=== PATIENT | female | born 1990 | race Asian ===

== ENCOUNTER → 2017-09-14 | Outpatient (CLI) | payer OTHER | END | disposition home or self-care (01) | LOC: C.LABSPEC 18:04 | PROVIDERS: ATTEND Obstetrics & Gynecology | DX: Z34.01 Encounter for supervision of normal first pregnancy, first trimester (principal) ==

== ENCOUNTER → 2017-09-19 | Outpatient (CLI) | payer OTHER ==
[2017-09-19 10:18] LABS: BASO % 0.3 %; BASO ABS # 0.04 K/uL (0-0.2); EOS % 1.4 %; EOS ABS # 0.16 K/uL (0-0.5); HEMATOCRIT 38.3 % (37-47); HEMOGLOBIN 13.3 g/dL (12.0-16.0); IG# 0.03 K/uL (0.00-0.02); LYMPH % 19.9 %; LYMPH ABS # 2.33 K/uL (1.2-3.4); MEAN CORPUSCULAR HEMOGLOBIN 30.6 pg (25-34); MEAN CORPUSCULAR HGB CONC 34.7 g/dl (32-36); MEAN PLATELET VOLUME 9.5 fL (7.4-10.4); MONO % 6.8 %; NEUT % 71.3 %; NEUT ABS # 8.34 K/uL (1.4-6.5); PLATELET COUNT 306 K/uL (130-400); RED CELL DISTRIBUTION WIDTH CV 12.6 % (11.5-14.5); RED CELL DISTRIBUTION WIDTH SD 40.6 fL (36.4-46.3)
== END | disposition home or self-care (01) ==
LOC: C.LAB1850 09:11
PROVIDERS: ATTEND Obstetrics & Gynecology
DX: Z34.01 Encounter for supervision of normal first pregnancy, first trimester (principal); Z3A.00 Weeks of gestation of pregnancy not specified

== ENCOUNTER → 2017-11-14 | Outpatient (CLI) | payer OTHER | END | disposition home or self-care (01) | LOC: C.LAB1850 10:08 | PROVIDERS: ATTEND Obstetrics & Gynecology | DX: Z34.02 Encounter for supervision of normal first pregnancy, second trimester (principal) ==

== ENCOUNTER → 2018-04-03 | Outpatient (CLI) | payer OTHER | END | disposition home or self-care (01) | LOC: C.LABSPEC 17:35 | PROVIDERS: ATTEND Obstetrics & Gynecology | DX: Z34.03 Encounter for supervision of normal first pregnancy, third trimester (principal) ==

== ENCOUNTER 2018-04-17 15:46 | Inpatient (IN) | payer OTHER ==
[~2018-04-17] VITALS: Ht 157.5 cm; Wt 70.9 kg
[2018-04-17] MEDS ORDERED: PREN-63 (16:55)
[2018-04-17] MEDS ORDERED: HMLI7525 SC (16:55)
[2018-04-17] MEDS ORDERED: INSHI7030 SC (16:55)
[2018-04-17 16:58] VITALS: Ht 157.5 cm; Wt 70.9 kg
[2018-04-17] MEDS ORDERED: LACTATED RINGER'S 1000ML 1,000 ML IV PRN (18:02)
[2018-04-17] MEDS ORDERED: LACTATED RINGER'S 1000ML 500 ML IV PRN ×2 (18:05→23:34)
[2018-04-17] MEDS ORDERED: OXYTOCIN 30 UNITS/500ML NSS IV PRN (18:15)
[2018-04-17 18:29] LABS: HEMATOCRIT 39.1 % (37-47); HEMOGLOBIN 13.2 g/dL (12.0-16.0); MEAN CELL VOLUME 86.1 fL (80-100); MEAN CORPUSCULAR HEMOGLOBIN 29.1 pg (25-34); MEAN CORPUSCULAR HGB CONC 33.8 g/dl (32-36); MEAN PLATELET VOLUME 10.1 fL (7.4-10.4); PLATELET COUNT 205 K/uL (130-400); RED CELL DISTRIBUTION WIDTH SD 43.8 fL (36.4-46.3); WHITE BLOOD COUNT 12.22 K/uL (4.8-10.8)
[2018-04-17] MEDS ORDERED: MISOPROSTOLTAB 50 MCG TAB PO SCH (18:30)
[2018-04-17] MEDS: LACTATED RINGER'S 1000ML 1,000 ML IV SCH ×2 (18:51→23:04)
[2018-04-17] MEDS ORDERED: BUTORPHANOL TARTRATE 1 MG/ML VIAL ONE (21:09)
[2018-04-17] MEDS ORDERED: BUTORPHANOL TARTRATE 1 MG/ML VIAL IV PRN (21:15)
[2018-04-17] MEDS ORDERED: EpHEDrine SULFATE INJ 50 MG/ML AMP ONE (22:39)
[2018-04-17] MEDS ORDERED: BUPIVACAINE 0.25% 30 ML VIAL ONE (22:39)
[2018-04-17] MEDS ORDERED: FENTANYL CITRATE INJ 50 MCG/1 ML 2 ML VIAL ONE (22:39)
[2018-04-17] MEDS ORDERED: FENTANYL 2MCG/ML ROPIV 1.25MG/ML 100ML BAG ONE (22:40)
[2018-04-17] MEDS ORDERED: EpHEDrine SULFATE INJ 50 MG/ML AMP IV PRN (23:45)
[2018-04-17] MEDS ORDERED: NALOXONE HCL INJ 0.4 MG/1 ML VIAL/CARP IV PRN (23:45)
[2018-04-17] MEDS ORDERED: FENTANYL 2MCG/ML ROPIV 1.25MG/ML 100ML BAG EPI PRN (23:45)
[2018-04-18] MEDS: LACTATED RINGER'S 1000ML 1,000 ML IV SCH (03:27)
[2018-04-18] MEDS ORDERED: LACTATED RINGER'S 1000ML 1,000 ML IV SCH (09:12)
[2018-04-18] MEDS ORDERED: HYDROCORTISONE ACETATE 25 MG SUPP PR PRN (09:15)
[2018-04-18] MEDS ORDERED: SUPERCREAM 0.870 % 15GM JAR EXT PRN (09:15)
[2018-04-18] MEDS ORDERED: BENZOCAINE 20% AER SPR 82.5 GM CAN EXT PRN (09:15)
[2018-04-18] MEDS ORDERED: DIPHTHERIA/TETANUS/PERTUSSIS 0.5 ML SYR/VIAL IM. ONE (09:15)
[2018-04-18] MEDS ORDERED: OXYTOCIN 30 UNITS/500ML NSS IV PRN (09:15)
[2018-04-18] MEDS ORDERED: LANOLIN OINT EXT PRN (09:15)
[2018-04-18] MEDS ORDERED: OXYCODONE/ACETAMINOPHEN 5-325 TAB PO PRN (09:15)
--- NOTE | 2018-04-18 09:27 | Vaginal Delivery Summary ---
Vaginal Delivery Ora Ochoa was in her second stage of labor at the time I assumed her care on . I was called to the room for delivery as she was . The perineum was prepped with soap and water, and the baby then delivered with maternal pushing efforts. No nuchal cord. The shoulders and body delivered with no difficulty or delay. A viable male infant was placed on maternal abdomen where cord was doubly clamped and cut by the FOB. Placenta delivered spontaneously. Repair of the L labial laceration was done with 4-0 vicryl in running locked fashion. The second degree laceration was then repaired using 3-0 vicryl in the usual manner with a crown suture to rebuild the perineal body. At completion of repair the fundus was firm and lochia was minimal.
[2018-04-18] MEDS: IBUPROFEN 600 MG TAB PO PRN ×2 (11:58→16:05)
--- NOTE | 2018-04-18 12:39 | Anesthesia Procedure Note ---
Anesthesia Epidural Removal Nt Date & Time Apr 18, 2018 at 12:38 Vital Signs Pain Intensity: 6.0 Notes Mental Status: alert / awake / arousable, participated in evaluation Nausea / Vomiting: adequately controlled Pain: adequately controlled Airway Patency, RR, SpO2: stable & adequate BP & HR: stable & adequate Hydration State: stable & adequate Neuraxial Anesthesia: was administered Anesthetic Complications: no major complications apparent, pt satisfied with anesthetic care Epidural: removed without complications, with tip intact
[2018-04-18 12:45] VITALS: BP 107/76; PULSE 122; TEMP 36.5; O2SAT 97
[2018-04-18] MEDS: ACETAMINOPHEN 325 MG TAB PO PRN ×2 (13:01→23:44)
[2018-04-18 15:15] VITALS: BP 114/77; PULSE 96; TEMP 36.7
[2018-04-18] MEDS: DOCUSATE SODIUM 100 MG CAP PO SCH (19:41)
[2018-04-18 19:45] VITALS: BP 106/69; PULSE 93; TEMP 36.6; O2SAT 98
[2018-04-18 23:40] VITALS: BP 114/71; PULSE 105; TEMP 36.7; O2SAT 98
[2018-04-19] MEDS: IBUPROFEN 600 MG TAB PO PRN ×2 (04:04→21:43)
[2018-04-19 04:05] VITALS: BP 107/70; PULSE 87; TEMP 36.7; O2SAT 99
[2018-04-19 06:36] LABS: HEMATOCRIT 31.8 % (37-47); HEMOGLOBIN 10.6 g/dL (12.0-16.0)
--- NOTE | 2018-04-19 06:59 | Progress Note ---
Subjective Apr 19, 2018. Subjective conversation w/ patient, physical exam Ambulation: ambulating normally Voiding: no voiding problems Passing Gas: Yes Diet Tolerance: Regular Diet Lochia: Moderate Feeding Type: Breast Feeding (Plans to pump) Pain: improving Review of Systems Constitutional: No fever, No chills, No sweats Respiratory: No cough, No sputum, No wheezing Cardiac: No chest pain Abdomen: No pain, No nausea, No vomiting Female : No dysuria Objective Vital Signs Date Time Temp Pulse Resp B/P (MAP) Pulse Ox O2 Delivery O2 Flow Rate FiO2 04/19/18 04:05 36.7 87 20 107/70 (82) 99 Room Air 04/18/18 23:40 36.7 105 20 114/71 (85) 98 Room Air 04/18/18 23:40 98 Room Air 04/18/18 19:45 36.6 93 20 106/69 (81) 98 Room Air 04/18/18 19:45 98 Room Air 04/18/18 15:15 Room Air 04/18/18 15:15 36.7 96 20 114/77 (89) Room Air 04/18/18 12:45 36.5 122 20 107/76 (86) 97 Room Air 04/18/18 12:45 97 Physical Exam General Appearance: WELL-APPEARING, NO APPARENT DISTRESS Respiratory/Chest: chest non-tender, lungs clear Cardiovascular: regular rate, rhythm Fundus: Firm, Relation to Umbilicus (Below) Extremities: non-tender, no calf tenderness Laboratory Results Last 24 Hours Test 04/18/18 07:08 04/19/18 06:05 Bedside Glucose 92 mg/dl Hemoglobin 10.6 g/dL Hematocrit 31.8 % Medications Current Inpatient Medications Medications (Trade) Dose Ordered Sig/Breann Route Start Time Stop Time Status Last Admin Dose Admin Lactated Ringer's 1,000 ml @ 999 mls/hr Q1H1M PRN IV 04/17/18 18:02 05/17/18 18:01 04/17/18 22:41 999 MLS/HR Lactated Ringer's 500 ml @ 999 mls/hr Q31M PRN IV 04/17/18 18:05 05/17/18 18:04 Butorphanol Tartrate (Stadol Inj) 1 mg Q1H PRN IV 04/17/18 21:15 05/17/18 21:14 Lactated Ringer's 1,000 ml @ 125 mls/hr Q8H IV 04/18/18 09:12 05/18/18 09:11 Oxytocin (Pitocin IV) 30 units UD PRN IV 04/18/18 09:15 05/18/18 09:14 Benzocaine (Dermoplast Aero Spr) 1 appln PRN PRN EXT 04/18/18 09:15 05/18/18 09:14 04/18/18 13:01 1 APPLN Cocaine HCl (Supercream 0.870% Cr) BID PRN EXT 04/18/18 09:15 05/02/18 09:14 Hydrocortisone Acetate (Anusol Hc Supp) 25 mg BID PRN CO 04/18/18 09:15 05/18/18 09:14 Lanolin (Lanolin Oint) PRN PRN EXT 04/18/18 09:15 05/18/18 09:14 Prenat Multivit/ Drama Therapist/Iron/Folic Ac ( Vitamin Tab) 1 tab DAILY PO 04/19/18 08:00 05/19/18 07:59 Ibuprofen (Motrin Tab) 600 mg Q4H PRN PO 04/18/18 09:15 05/18/18 09:14 04/19/18 04:04 600 MG Acetaminophen (Tylenol Tab) 650 mg Q6H PRN PO 04/18/18 09:15 05/18/18 09:14 04/18/18 23:44 650 MG Oxycodone/ Acetaminophen (Percocet 5-325mg Tab) 1 tab Q4H PRN PO 04/18/18 09:15 05/02/18 09:14 Docusate Sodium (coLACE CAP) 100 mg BID PO 04/18/18 20:00 05/18/18 19:59 04/18/18 19:41 100 MG Ferrous Sulfate (Feosol Tab) 325 mg DAILY PO 04/19/18 08:00 05/19/18 07:59 Assessment and Plan Day#: 1 Continue Routine Care: 27 yo PPD1 s/p -AFVSS, Pt doing well resting comfortably -F/U CBC HGB 10.6 down from 13.2 appropriate s/p delivery, no si/sx -Plan is to breast feed (pump) -Tolerating regular diet -Continue to encourage ambulation -Routine care -Most Recent POC BG 92, will continue to monitor Resident Physician Supervision Note: I interviewed and examined the patient. Discussed with Dr. Charles and agree with findings and plan as documented in the note. Any exceptions or clarifications are listed here: [None] Documented By: Priya Cates Resident Tracking Resident Involvement: Resident Care Provided Care Provided: Adult Hospital Medicine
[2018-04-19 07:40] VITALS: BP 115/78; PULSE 68; TEMP 36.8; O2SAT 99
[2018-04-19] MEDS: FERROUS SULFATE 325 MG TAB PO SCH (08:22)
[2018-04-19] MEDS: DOCUSATE SODIUM 100 MG CAP PO SCH ×2 (08:22→20:09)
[2018-04-19] MEDS: PRENATAL VITAMIN TAB PO SCH (08:22)
[2018-04-19] MEDS: ACETAMINOPHEN 325 MG TAB PO PRN ×2 (08:24→16:18)
[2018-04-19 15:35] VITALS: BP 117/77; PULSE 88; TEMP 36.8; O2SAT 96; O2SAT 98
[2018-04-20 00:01] VITALS: BP 109/73; PULSE 81; TEMP 36.9; O2SAT 97
--- NOTE | 2018-04-20 06:29 | Progress Note ---
Subjective Apr 20, 2018. Subjective conversation w/ patient, physical exam Ambulation: ambulating normally Voiding: no voiding problems Passing Gas: Yes Diet Tolerance: Regular Diet Lochia: Small (improving) Feeding Type: Breast Feeding (with pumping) Pain: improving, increased with bm, some breast pain Comment: would like advice regarding stool softener Review of Systems Constitutional: No fever, No chills, No sweats Respiratory: No cough, No sputum, No wheezing Cardiac: No chest pain, No palpitations Abdomen: No pain, No nausea, No vomiting, No diarrhea Objective Vital Signs Date Time Temp Pulse Resp B/P (MAP) Pulse Ox O2 Delivery O2 Flow Rate FiO2 04/20/18 00:01 36.9 81 18 109/73 (85) 97 Room Air 04/20/18 00:01 97 Room Air 04/19/18 15:35 36.8 88 18 117/77 (90) 96 Room Air 04/19/18 15:35 98 Room Air 04/19/18 07:40 Room Air 04/19/18 07:40 36.8 68 16 115/78 (90) 99 Room Air Physical Exam General Appearance: WELL-APPEARING, NO APPARENT DISTRESS Respiratory/Chest: chest non-tender, normal breath sounds Cardiovascular: regular rate, rhythm Abdomen: normal bowel sounds Fundus: Firm, Relation to Umbilicus (below) Extremities: no calf tenderness Laboratory Results Last Resulted 04/17/18 18:21 04/19/18 06:05 Medications Current Inpatient Medications Medications (Trade) Dose Ordered Sig/Breann Route Start Time Stop Time Status Last Admin Dose Admin Lactated Ringer's 1,000 ml @ 999 mls/hr Q1H1M PRN IV 04/17/18 18:02 05/17/18 18:01 04/17/18 22:41 999 MLS/HR Lactated Ringer's 500 ml @ 999 mls/hr Q31M PRN IV 04/17/18 18:05 05/17/18 18:04 Butorphanol Tartrate (Stadol Inj) 1 mg Q1H PRN IV 04/17/18 21:15 05/17/18 21:14 Lactated Ringer's 1,000 ml @ 125 mls/hr Q8H IV 04/18/18 09:12 05/18/18 09:11 Oxytocin (Pitocin IV) 30 units UD PRN IV 04/18/18 09:15 05/18/18 09:14 Benzocaine (Dermoplast Aero Spr) 1 appln PRN PRN EXT 04/18/18 09:15 05/18/18 09:14 04/18/18 13:01 1 APPLN Cocaine HCl (Supercream 0.870% Cr) BID PRN EXT 04/18/18 09:15 05/02/18 09:14 Hydrocortisone Acetate (Anusol Hc Supp) 25 mg BID PRN NV 04/18/18 09:15 05/18/18 09:14 Lanolin (Lanolin Oint) PRN PRN EXT 04/18/18 09:15 05/18/18 09:14 Prenat Multivit/ Corporate Auditor/Iron/Folic Ac ( Vitamin Tab) 1 tab DAILY PO 04/19/18 08:00 05/19/18 07:59 04/19/18 08:22 1 TAB Ibuprofen (Motrin Tab) 600 mg Q4H PRN PO 04/18/18 09:15 05/18/18 09:14 04/19/18 21:43 600 MG Acetaminophen (Tylenol Tab) 650 mg Q6H PRN PO 04/18/18 09:15 05/18/18 09:14 04/19/18 16:18 650 MG Oxycodone/ Acetaminophen (Percocet 5-325mg Tab) 1 tab Q4H PRN PO 04/18/18 09:15 05/02/18 09:14 Docusate Sodium (coLACE CAP) 100 mg BID PO 04/18/18 20:00 05/18/18 19:59 04/19/18 20:09 100 MG Ferrous Sulfate (Feosol Tab) 325 mg DAILY PO 04/19/18 08:00 05/19/18 07:59 04/19/18 08:22 325 MG Assessment and Plan Day#: 2 Continue Routine Care: 27 yo PPD2 s/p -AFVSS, Pt doing well resting comfortably, had many questions (vitamin k, bleeding, sutures) -no si/sx of anemia -Plan is to breast feed and pump -Tolerating regular diet -Continue to encourage ambulation -Routine care -Provided Discharge Counseling regarding vaginal bleeding, fever, f/u 6 weeks, no heavy lifting for 2-3 weeks, breast feeding, taking pre- vitamin, and intercourse Resident Physician Supervision Note: I was present with Dr. Charles during the history and exam. I discussed the case with the resident and agree with the findings and plan as documented in the note. Any exceptions or clarifications are listed here: PPD#2 DC home today Documented By: Steph Miles Resident Tracking Resident Involvement: Resident Care Provided Care Provided: Adult Hospital Medicine
--- NOTE | 2018-04-20 07:05 | Discharge Instructions ---
Discharge Instructions Date of Service Apr 20, 2018. Admission Reason for Admission: Check Labor Discharge Discharge Diagnosis / Problem: Discharge Goals Goal(s): Routine recovery after delivery Medications Continue Dispensed Medications: supercream, dermaplast, tucks Activity Recommendations Activity Limitations: per Instructions/Follow-up section . Instructions / Follow-Up Instructions / Follow-Up ACTIVITY RECOMMENDATIONS: * Gradual return to full activity over the next 2-3 weeks. * No lifting - nothing heavier than baby over the next 2-3 weeks. * Do not engage in vigorous exercise, sexual activity or sports until cleared by your physician. * Do not drive or operate any motorized equipment until cleared by your physician. * You may shower/bathe daily. MEDICATIONS: For discomfort or pain, you may use Acetaminophen (Tylenol), Ibuprofen (Advil), or Naproxen (Aleve) following the package directions. For constipation you may use Colace following the package directions. BREAST CARE: If you are not breast feeding: * Wear a supportive bra 24 hours a day for one to two weeks. * Avoid stimulating your breasts and nipples as much as possible during the first few weeks after delivery. * When taking a shower, have the warm water hit your back, not breasts. * When your breasts feel full, apply ice packs. Usually three to four times a day helps ease the discomfort. * Take a mild pain medication (Tylenol / Motrin) when you are uncomfortable. If breast feeding: * Use breast milk to lubricate nipples. Lansinoh cream may be used for sore nipples. You do not need to remove cream prior to breast feeding. If using a different brand of cream, check the label for directions regarding removal of cream prior to nursing. * Wear a supportive bra. * If having problems with breasts or breast feeding, call a senior market intelligence consultant or your health care provider. EPISIOTOMY CARE: After delivery, if you have an episiotomy (stitches), the following steps will ease discomfort and aid healing. * For the first 24 hours after delivery, place ice packs next to your episiotomy to help reduce swelling. * After the first 24 hour-period, sitz baths, either portable or in the tub, are suggested. A shower with a shower arm sprayed over the episiotomy may be comforting. * Xochitl care should be done after each voiding and bowel movement. Squirt warm water from a plastic bottle over the perineum (region of the body between the anus and urinary opening) and pat dry. * Use Dermoplast to ease discomfort. Shake container. [place] directly over the episiotomy. Place a Tucks on a clean sanitary pad next to your episiotomy. SPECIAL CARE INSTRUCTIONS: When you are discharged from the hospital, it is important for you to follow the instructions listed below: * During the first week at home, you should be able to care for yourself and your baby. In addition, the usual light household activities are encouraged. * Limit your activities to the way you feel. Do not try to clean the house or move furniture. Be sensible. * If you actively engage in sports and have done so up until the time of your delivery, you may resume these activities as soon as you feel able. This may take up to one month or even longer. Use good judgment. * Continue to take your vitamins for at least six weeks after the of your baby. * Your diet need not be limited unless you were on a special diet before your delivery. Breast-feeding mothers need around 2500 calories per day and at least 64-80 ounces of fluid per day (8 to 10 glasses). * You should eat foods from the four major food groups. Crash diets or fad diets are to be avoided. Eating lean meats, fresh fruits and vegetables, low-fat dairy products, high fiber foods and a regular exercise program, will help you get back to your pre- weight without putting your health at risk. * Constipation is sometimes a problem after delivery. Take a mild laxative as needed. If breast feeding, Milk of Magnesia is acceptable to use. You may use a suppository or Fleets enema if no episiotomy. * A daily shower or tub bath is suggested. Be sure to thoroughly and gently dry the perineum. * A bloody vaginal discharge will usually continue until around four weeks post . A small amount of bleeding may continue for as long as six weeks. Vaginal discharge changes from the bright red bleeding after delivery to pink then brownish and finally yellowish-pink before becoming white and disappearing. * Bleeding may increase with activity. Your first period may come in 4-8 weeks. If you are breast feeding, your period may be delayed even longer. * [place] (sex) can begin whenever both you and your partner feel comfortable and do not have any form of genital infection. It is recommended that you wait at least six weeks for internal and external healing to occur. If you have questions, please talk to your health care practitioner. A condom should be used to prevent infection and . * Foreplay, gentle intercourse and lubrication is very important the first several times to prevent pain. A water-based lubricant such as K-Y jelly or Astroglide may be used. * If you have RH negative blood and your baby is RH positive, you will receive RHOGAM by injection prior to discharge. The nurse will give you a card to keep with you that has the date and place that you received RHOGAM after delivery. * During your care, you had a Rubella screen done to check for the presence of rubella antibodies in your blood. If your test was negative, you will receive a Rubella vaccine prior to discharge. This vaccine may cause a fever, soreness at the injection site and flu-like symptoms. If these symptoms persist, notify your health care practitioner. is not advised for one month after a Rubella vaccine. * Verbalizes understanding of car seat law as reviewed with patient nursing. * Car Seat hand-out given and reviewed with patient by nursing. * Shaken baby information reviewed with patient by nursing. Call you doctor if: * Heavy bleeding (saturating several pads an hour) or passing clots the size of your fist. * A fever >101 degrees F (38.3 degrees C) on two occasions four hours apart and /or chills. * Unusual pain in the pelvic or vaginal areas. * "Baby Blues" lasting longer than two weeks. If you have any questions or concerns, call your health care practitioner at . FOLLOW UP VISIT: * Please call the office at to schedule a 6 week examination. It is important you keep this appointment. It is important for you to make arrangements for either yearly or twice yearly check-ups thereafter. Current Hospital Diet Patient's current hospital diet: Regular OB Diet Discharge Diet Recommended Diet: Regular OB Diet Pending Studies Studies pending at discharge: no Medical Emergencies . Who to Call and When: Medical Emergencies: If at any time you feel your situation is an emergency, please call 911 immediately. . Non-Emergent Contact Non-Emergency issues call your: Furnace Fitter Call Non-Emergent contact if: temperature is above 100.5 . . "Provider Documentation" section prepared by Kevin Charles. .
[2018-04-20 07:26] VITALS: BP 116/77; PULSE 89; TEMP 36.7; O2SAT 97
[2018-04-20] MEDS: DOCUSATE SODIUM 100 MG CAP PO SCH (09:10)
[2018-04-20] MEDS: PRENATAL VITAMIN TAB PO SCH (09:10)
[2018-04-20] MEDS: FERROUS SULFATE 325 MG TAB PO SCH (09:10)
[2018-04-20 12:54] VITALS: BP_DIAS 77; PULSE 89; TEMP 36.7
== END 2018-04-20 13:50 | disposition home or self-care (01) | DRG 775 ==
LOC: C.OPB 15:46 → C.LD 15:46 → C.OPB 18:04 → C.LD 18:04 → C.OBG 04-18 12:27 → EDSTATUS 04-30 15:48
PROVIDERS: ADMIT Obstetrics & Gynecology; ATTEND Obstetrics & Gynecology
PROC: 10E0XZZ Delivery of Products of Conception, External Approach (ICD-10-PCS; principal; 2018-04-18)
PROC: 0KQM0ZZ Repair Perineum Muscle, Open Approach (ICD-10-PCS; principal; 2018-04-18)
DX: O24.424 Gestational diabetes mellitus in childbirth, insulin controlled (principal); Z3A.38 38 weeks gestation of pregnancy; Z37.0 Single live birth; Z79.4 Long term (current) use of insulin; O70.1 Second degree perineal laceration during delivery

== ENCOUNTER 2020-06-02 15:34 | Inpatient (IN) ==
[2020-06-02] MEDS ORDERED: CEFAZOLIN 3,000 MG in DEXTROSE 5% 50 ML IV STA (17:05)
[2020-06-02] MEDS ORDERED: KETOROLAC 30 MG/ML VIAL IV STA (17:08)
--- NOTE | 2020-06-02 17:12 | Emergency Department Note ---
History of Present Illness General Chief complaint: Leg Injury/Pain Stated complaint: LEFT LEG PAIN Time Seen by Provider: 06/02/20 16:58 Source: patient Mode of arrival: ambulatory Limitations: no limitations History of Present Illness Provider complaint: Left foot and calf pain Maximum Pain Intensity: 10 Complaint of left foot pain. She states that she is been seeing a doctor for issues with anxiety for a few weeks. She was seen a neurologist today who evaluated her and sent her to the emergency department with concerns about a left foot infection. The patient states that over the past 2 days she has developed left foot swelling as well as redness and increased pain as well as s ome left calf pain. It is worse if she walks on it. Nothing makes it better. Denies any fevers, nausea vomiting or other symptoms. No specific trauma. Home Medications Home Medications Medication Instructions Recorded Confirmed Type clindamycin phosphate 1 appln TOP HS 05/12/20 06/02/20 History fish,bora,flax oils-om3,6,9no1 1 cap PO HS 05/12/20 06/02/20 History [[place] 3-6-9] no.144-folic acid 1 tab PO HS 05/12/20 06/02/20 History [] vitamin E 400 unit PO HS 05/12/20 06/02/20 History celecoxib [Celebrex] 200 mg PO DAILY PRN 06/02/20 06/02/20 History gabapentin 300 mg PO HS 06/02/20 06/02/20 History prednisone 20 mg PO DAILY 06/02/20 06/02/20 History Allergies Allergy/AdvReac Type Severity Reaction Status Date / Time No Known Allergies Allergy Verified 06/02/20 17:40 Past Med/Surg History Medical History Asthma Migraine Surgical History No significant past surgical history Family History Mother Depression Dyslipidemia Father Diabetes Grandmother (Paternal) Uterine cancer Social History Smoking Status: Never smoker Hx Alcohol Use: Yes Hx Substance Use: No marital status: Feels Safe at Home: Yes Review of Systems A total of 10 systems reviewed and were otherwise negative Physical Exam Vital Signs Vital Signs - 24 hr 06/02/20 15:56 06/02/20 17:26 06/02/20 21:11 Temperature 37 C Temperature Source Oral Pulse Rate 104 H Pulse Rate [Apical] 98 H 97 H Pulse Rhythm Regular Pulse Strength Normal Respiratory Rate 20 18 19 Respiratory Effort / Characteristics Non-Labored Spontaneous Respiratory Depth Normal Respiratory Pattern Regular Blood Pressure 115/72 Blood Pressure [Left Arm] 116/79 132/80 Blood Pressure Mean 86 Blood Pressure Mean [Left Arm] 91 97 Blood Pressure Position Sitting Pulse Oximetry 100 100 98 Oxygen Delivery Method Room Air Room Air Sepsis Recent Fever Within 48 Hours No Sepsis New/Unexplained Change in Mental Status N/A Sepsis Action Taken by Nursing No Action Required CONSTITUTIONAL/VITAL SIGNS: Reviewed / noted above. GENERAL: Non-toxic in appearance. INTEGUMENTARY: Warm, dry, and [place]. HEAD: Normocephalic. EYES: without scleral icterus or trauma. ENT/OROPHARYNX: clear and moist. LYMPHADENOPATHY/NECK: Is supple without lymphadenopathy or meningismus. RESPIRATORY: Lungs clear and equal. CARDIOVASCULAR: Regular rate and rhythm. GI/ABDOMEN: Soft and nontender. No organomegaly or pulsatile mass. No rebound or guarding. Normal bowel sounds. EXTREMITIES: Warm and well perfused. The patient has some moderate swelling to the left foot with erythema and tenderness. There is also noted to be some tenderness to the left calf. BACK: No CVA tenderness. NEUROLOGICAL: Intact without focal deficits. PSYCHIATRIC: normal affect. MUSCULOSKELETAL: Normally developed with good muscle tone. TRIAGE NURSING DOCUMENTATION REVIEWED. Course Administered Medications Discontinued Medications Cefazolin Sodium 3,000 mg/ (Dextrose) 72.5 mls @ 145 mls/hr IV NOW STA Stop: 06/02/20 17:34 Last Infusion: 06/02/20 19:06 Dose: 0 mls/hr Documented by: [id number] Admin: 06/02/20 17:52 Dose: 145 mls/hr Documented by: [id number] Ketorolac Tromethamine (Ketorolac 30 Mg/Ml Vial) 30 mg IV NOW STA Stop: 06/02/20 17:09 Last Admin: 06/02/20 17:28 Dose: 30 mg Documented by: [id number] Medical Decision Making Differential Diagnosis Cellulitis, abscess, MRSA infection, DVT, necrotizing fasciitis, dermatitis, drug eruption, allergic reaction, as well as other pathologies. Medical Records Attestation: I reviewed the patient's medical records. Home Medications Current Medication List: was personally reviewed by me Laboratory Data Attestation: I reviewed the patient's lab results. Result diagrams: 06/02/20 17:30 06/02/20 17:30 Lab Results 06/02/20 06/02/20 06/02/20 Range/Units 17:30 17:30 17:30 WBC 13.36 H (4.8-10.8) K/uL RBC 4.82 (4.2-5.4) M/uL Hgb 14.8 (12.0-16.0) g/dL Hct 43.6 (37-47) % MCV 90.5 (80-100) fL MCH 30.7 (25-34) pg MCHC 33.9 (32-36) g/dL RDW Std Deviation 44.0 (36.4-46.3) fL RDW Coeff of Elvira 13.4 (11.5-14.5) % Plt Count 336 (130-400) K/uL MPV 9.2 (7.4-10.4) fL Immature Gran % (Auto) 0.2 % Neut % (Auto) 83.0 % Lymph % (Auto) 13.0 % [place] % (Auto) 3.5 % Eos % (Auto) 0.2 % Baso % (Auto) 0.1 % Neut # (Auto) 11.08 H (1.4-6.5) K/uL Lymph # (Auto) 1.74 (1.2-3.4) K/uL [place] # (Auto) 0.47 (0.11-0.59) K/uL Eos # (Auto) 0.03 (0-0.5) K/uL Baso # (Auto) 0.01 (0-0.2) K/uL Immature Gran # (Auto) 0.03 H (0.00-0.02) K/uL ESR 27 H (0-21) mm/hr Sodium 140 (136-145) mmol/L Potassium 3.3 L (3.5-5.1) mmol/L Chloride 107 (98-107) mmol/L Carbon Dioxide 28 (21-32) mmol/L Anion Gap 5.0 (3-11) BUN 15 (7-18) mg/dl Creatinine 0.69 (0.6-1.2) mg/dl Est Cr Clr Drug Dosing 102.3 ml/min Est GFR ( Amer) 134.4 Est GFR (Non-Af Amer) 116.0 BUN/Creatinine Ratio 21.1 H (10-20) Glucose 107 H (70-99) mg/dl Calcium 9.4 (8.5-10.1) mg/dl Total Bilirubin 0.8 (0.2-1) mg/dl AST 14 L (15-37) U/L ALT 27 (12-78) U/L Alkaline Phosphatase 64 (45-117) U/L C-Reactive Protein < 0.29 (0-0.29) mg/dl Total Protein 9.1 H (6.4-8.2) gm/dl Albumin 4.3 (3.4-5.0) gm/dl Globulin 4.8 H (2.5-4.0) gm/dl Albumin/Globulin Ratio 0.9 (0.9-2) Imaging Data Radiologist's Impression: XR foot LT min 3V routine CLINICAL HISTORY: Left foot pain and swelling COMPARISON: None. DISCUSSION: No acute fractures or dislocations are visualized. There are no erosive or destructive changes. IMPRESSION: 1. No acute fractures. No evidence of erosive disease. US venous doppler LE LT CLINICAL HISTORY: left calf and foot swelling COMPARISON STUDY: No previous studies for comparison. FINDINGS: Real-time and color flow Doppler imaging were performed. Flow was seen within the femoral, popliteal and calf veins with no intraluminal thrombus demonstrated. The saphenous vein is patent. IMPRESSION: No evidence of left lower extremity DVT. Blood Pressure Blood Pressure Findings: Normal blood pressure MDM Narrative The patient presents as above with concerns about a left foot infection. The patient's does not have a fever here today but her heart rate is slightly tachycardic. Her exam reveals erythema, swelling and tenderness of the left foot with some calf tenderness as well. The patient's white blood cell count is slightly elevated. An x-ray of her foot did not show acute pathology. Ultrasound of the left leg did not show DVT. Chemistry panel was unremarkable. CRP was normal. The patient was treated with IV Ancef and IV Toradol for pain. She will be seen by the hospitalist for further inpatient evaluation and care. Impression & Plan Cellulitis of foot, left, Paresthesias Discharge Plan Visit Data Chief Complaint: Leg Injury/Pain Stated Complaint: LEFT LEG PAIN ED Provider: Yoandy Simon Discharge Problem: Cellulitis of foot, left, Paresthesias Patient Disposition: Being Evaluated by Hospitalist Condition: Good Forms Stand Alone Forms: [facility], [facility] Emergency Department, Important Visit Information Prescriptions Prescriptions: No Action prednisone 20 mg Tablet 20 mg PO DAILY RF: 0 gabapentin 300 mg capsule 300 mg PO HS RF: 0 celecoxib [Celebrex] 200 mg capsule 200 mg PO DAILY PRN (Reason: Pain) RF: 0 vitamin E 400 unit Capsule 400 unit PO HS RF: 0 [place] 3-6-9 1,200 mg Capsule 1 cap PO HS RF: 0 400 mcg Tablet,Chewable 1 tab PO HS RF: 0 clindamycin phosphate 1 % lotion 1 appln TOP HS RF: 0 Referrals Referrals: Avelino Nolan [Primary Care Provider] -
--- NOTE | 2020-06-02 17:24 | XRay Report ---
XR foot LT min 3V routine CLINICAL HISTORY: Left foot pain and swelling COMPARISON: None. DISCUSSION: No acute fractures or dislocations are visualized. There are no erosive or destructive ch anges. IMPRESSION: 1. No acute fractures. No evidence of erosive disease. ACT 112: Negative or not required by law. Electronically signed by: Antonio Norwood M.D. 06/02/2020 5:22 PM
[2020-06-02 17:47] LABS: Basophils # (auto) 0.01 K/uL (0-0.2); Basophils % (auto) 0.1 %; Eosinophils # (auto) 0.03 K/uL (0-0.5); Eosinophils % (auto) 0.2 %; Hematocrit (blood only) 43.6 % (37-47); Hemoglobin 14.8 g/dL (12.0-16.0); Immature Granulocytes # (auto) 0.03 K/uL (0.00-0.02); Immature Granulocytes % (auto) 0.2 %; Lymphocytes # (auto) 1.74 K/uL (1.2-3.4); Mean Corpuscular Hemoglobin 30.7 pg (25-34); Mean Corpuscular Hgb Conc 33.9 g/dL (32-36); Mean Corpuscular Volume 90.5 fL (80-100); Mean Platelet Volume 9.2 fL (7.4-10.4); Monocytes # (auto) 0.47 K/uL (0.11-0.59); Monocytes % (auto) 3.5 %; Neutrophils # (auto) 11.08 K/uL (1.4-6.5); Platelet Count 336 K/uL (130-400); RDW Coefficient of Variation 13.4 % (11.5-14.5); Red Blood Count 4.82 M/uL (4.2-5.4); White Blood Count 13.36 K/uL (4.8-10.8)
[2020-06-02 18:02] LABS: Alanine Aminotransferase 27 U/L (12-78); Albumin Level 4.3 gm/dl (3.4-5.0); Aspartate Aminotransferase 14 U/L (15-37); BUN Creatinine Ratio 21.1 (10-20); Blood Urea Nitrogen 15 mg/dl (7-18); Calcium 9.4 mg/dl (8.5-10.1); Carbon Dioxide 28 mmol/L (21-32); Chloride 107 mmol/L (98-107); Creatinine Clr Calc Pharmacy 102.3 ml/min; Est GFR (African American) 134.4; Glucose 107 mg/dl (70-99); Potassium 3.3 mmol/L (3.5-5.1); Sodium 140 mmol/L (136-145)
[2020-06-02 18:05] LABS: Albumin Globulin Ratio 0.9 (0.9-2); Alkaline Phosphatase 64 U/L (45-117); Bilirubin,Total 0.8 mg/dl (0.2-1); C Reactive Protein < 0.29 mg/dl (0-0.29); Globulin 4.8 gm/dl (2.5-4.0); Total Protein 9.1 gm/dl (6.4-8.2)
--- NOTE | 2020-06-02 18:21 | Ultrasound Report ---
US venous doppler LE LT CLINICAL HISTORY: left calf and foot swelling COMPARISON STUDY: No previous studies for comparison. FINDINGS: Real-time and color flow Doppler imaging were performed. Flow was seen within the femoral, popliteal and calf veins with no intraluminal thrombus demonstrated. The saphenous vein is patent. IMPRESSION: No evidence of left lower extremity DVT. ACT 112: Negative or not required by law. Electronically signed by: Antonio Norwood M.D. 06/02/2020 6:20 PM
--- NOTE | 2020-06-02 19:57 | History & Physical Report ---
Date of Service June 02, 2020 Assessment & Plan (1) Cellulitis of foot, left: 29-year-old female with past medical history migraines, mild intermittent asthma, gestational diabetes presents with concerns of bilateral hand and leg pain and left foot cellulitis. ?Small fiber neuropathy -etiology unclear: GBS variant vs. autoimmune vs. post-infectious Work-up to date: RF negative, Mg 2.1, uric acid 5.2, Lyme negative, parvovirus negative, COVID negative, ESR 27, CRP negative, ANGLE negative, TSH WNL We will additionally order ANGLE, B1, B6, B12, methylmalonic acid, vitamin E level, A1c, triglyceride level, SPEP with RENO, UPEP, SSA/SSB, ALINE, heavy metal screen, HCV, HIV, celiac screen, TS-heparin disaccharide and anti-MAG antibodies per recommendations of neurology LP with opening pressure, cell counts, glucose, protein, cytology, viral PCRs-- still pending procedure Electromyogram done May 21, 2020: Normal study Pain management with IV Toradol and IV morphine Medication management with gabapentin 300 mg twice daily (with plans to increase to 3 times daily as tolerated). Will start patient on nortriptyline 10 mg initially (EKG pending to look at QTc) Holding patient's p.o. prednisone 20 mg (tapering) and stress dosing with IV hydrocortisone 100 mg every 8 hours Appreciate neurology consult Left Foot Cellulitis WBC 13.36 on admission, afebrile without septic picture IV vancomycin and Rocephin for antibiotic coverage FEN/GI: Regular diet DVT prophylaxis: Lovenox SQ Full code Dispo: MedSurg History of Present Illness Chief Complaint: Leg pain Primary Care Provider: Avelino Nolan 29-year-old female with past medical history migraines, mild intermittent asthma, gestational diabetes presents with concerns of bilateral hand and leg pain and left foot cellulitis. Patient notes that hand and foot pain began on April 24, 2020 and has gradually worsened. Patient notes no inciting or traumatic event. Patient describes pain as burning/freezing with sensation of needle pricking. Radiation to left calf, 9/10 on severity scale. Alleviated with icing. Made worse by walking and putting shoes on and activities such as typing. Patient notes that she has not had any previous occurrence like this ever before. Patient was seen by orthopedics who put patient on gabapentin, which patient notes did help some. Patient was additionally seen later on right rheumatology (Dr. Cason) will put patient on a steroid taper starting with 40 mg prednisone. Patient is currently on 20 mg, however notes that this did not help as much as when she was on 40 mg. Additionally notes that about 2 days ago she noticed increased erythema and swelling on the left foot. Patient was seen today by neurology who noted cellulitic foot changes and recommend patient go to ER for further evaluation. Patient otherwise denies any fevers, chills, sweats, nausea, vomiting, diarrhea. Patient no other acute concerns or complaints. Work-up to date: RF negative, Mg 2.1, uric acid 5.2, Lyme negative, parvovirus negative, COVID negative, ESR 22, ANGLE negative, TSH WNL Pertinent labs: WBC 13.36, ESR 27, CRP negative, potassium 3.3. Otherwise largely unremarkable CBC CMP Foot x-ray: No acute fractures. No evidence of erosive disease. Venous Doppler study: No evidence of left lower extremity DVT. ER course: IV cefazolin 3g, IV Toradol 30 mg Social history: Denies any tobacco or illicit drug use. Social alcohol use Allergies Allergy/AdvReac Type Severity Reaction Status Date / Time No Known Allergies Allergy Verified 06/02/20 17:40 Home Medications Home Medications Medication Instructions Recorded Confirmed Type clindamycin phosphate 1 appln TOP HS 05/12/20 06/02/20 History fish,bora,flax oils-om3,6,9no1 1 cap PO HS 05/12/20 06/02/20 History [[place] 3-6-9] no.144-folic acid 1 tab PO HS 05/12/20 06/02/20 History [] vitamin E 400 unit PO HS 05/12/20 06/02/20 History celecoxib [Celebrex] 200 mg PO DAILY PRN 06/02/20 06/02/20 History gabapentin 300 mg PO HS 06/02/20 06/02/20 History prednisone 20 mg PO DAILY 06/02/20 06/02/20 History Past Med/Surg History Medical History Asthma Migraine Surgical History No significant past surgical history Family History Mother Depression Dyslipidemia Schizophrenia Hypothyroidism Father Diabetes Grandmother (Paternal) Uterine cancer Social History Smoking Status: Never smoker Hx Alcohol Use: Yes Alcohol type: beer and wine Alcohol Intake Frequency Comment: once a month or less. 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 Other Information That Helps Us Care for You: No Feels Safe at Home: Yes Assistive Devices: Walker Review of Systems Review of Systems: All systems reviewed & are unremarkable except as noted in HPI & below Physical Exam Constitutional: WD/WN, vitals as above Eyes: PERRL, conjunctivae normal, anicteric sclerae ENMT: external ear and nose normal, oropharynx normal Respiratory: normal respiratory effort, lungs clear to auscultation Cardiovascular: RRR, no murmur, no edema Gastrointestinal (Abdomen): normal bowel sounds, soft, nontender, no hepatosplenomegaly Musculoskeletal: Lower extremities tender to palpation L>R with left calf tenderness Skin: moderate swelling to the left foot with erythema and tenderness Neurologic: CN's II-XI intact bilaterally and moves all extremities; no focal motor deficits Psychiatric: A+Ox3, euthymic affect Results & Data Results & Data ([facility]) Vital Signs (Past 12 Hours) Vital Signs Temp Pulse Pulse Resp BP BP Pulse Ox 06/02/20 17:26 98 H 18 116/79 100 06/02/20 15:56 37 C 104 H 20 115/72 100 Laboratory Results Laboratory Results - last 24 hr 06/02/20 06/02/20 06/02/20 17:30 17:30 17:30 WBC 13.36 H RBC 4.82 Hgb 14.8 Hct 43.6 MCV 90.5 MCH 30.7 MCHC 33.9 RDW Std Deviation 44.0 RDW Coeff of Elvira 13.4 Plt Count 336 MPV 9.2 Immature Gran % (Auto) 0.2 Neut % (Auto) 83.0 Lymph % (Auto) 13.0 Callahan % (Auto) 3.5 Eos % (Auto) 0.2 Baso % (Auto) 0.1 Neut # (Auto) 11.08 H Lymph # (Auto) 1.74 Callahan # (Auto) 0.47 Eos # (Auto) 0.03 Baso # (Auto) 0.01 Immature Gran # (Auto) 0.03 H ESR 27 H Sodium 140 Potassium 3.3 L Chloride 107 Carbon Dioxide 28 Anion Gap 5.0 BUN 15 Creatinine 0.69 Est Cr Clr Drug Dosing 102.3 Est GFR ( Amer) 134.4 Est GFR (Non-Af Amer) 116.0 BUN/Creatinine Ratio 21.1 H Glucose 107 H Calcium 9.4 Total Bilirubin 0.8 AST 14 L ALT 27 Alkaline Phosphatase 64 C-Reactive Protein < 0.29 Total Protein 9.1 H Albumin 4.3 Globulin 4.8 H Albumin/Globulin Ratio 0.9 Code Status & VTE Plan Code Status Full Supervising Physician Co-Signing Physician Notes Attending addendum: I have physically seen this patient, have supervised the medical residents activities, and agree with the H&P unless as otherwise noted. Assessment and Plan: Cellulitis of left foot- WBC 13.36. Placed on IV vancomycin per pharmacokinetic monitoring. Ceftriaxone 1 g IV daily Follow clinical response Possible small fiber neuropathy- Concern regarding above diagnosis per neurology Dr. Henderson. Work-up ordered per her request. Prednisone use- Placed on stress dose hydrocortisone 100 mg IV every 8 hours Remainder of orders and notations as noted Resident Activity Tracking Resident Involvement: Resident Care Provided Care Provided: Adult Hospital Medicine
[2020-06-02] MEDS ORDERED: ACETAMINOPHEN 325 MG TAB PO PRN (23:28)
[2020-06-02] MEDS ORDERED: ALUMINUM/MAGNESIUM SUSP 30 ML UDC PO PRN (23:28)
[2020-06-02] MEDS ORDERED: VANCOMYCIN HCL 1,000 MG in SODIUM CHLORIDE 0.9% 250 ML IV SCH (23:28)
[2020-06-02] MEDS ORDERED: HYDROCORTISONE SOD SUCCINATE 100 MG/2 ML VIAL IV SCH (23:28)
[2020-06-02] MEDS ORDERED: MoRPHine SULFATE 2 MG/ML CARP IV PRN (23:28)
[2020-06-02] MEDS ORDERED: VANCOMYCIN CONSULT ACTIVE PRN (23:28)
[2020-06-02] MEDS ORDERED: INFLUENZA ADMINISTRATION CHARGE ONE (23:33)
[2020-06-02] MEDS ORDERED: INFLUENZA VIRUS QUAD VACCINE 0.5 ML SYR IM ONE (23:33)
[2020-06-03] MEDS ORDERED: VANCOMYCIN HCL 1,500 MG in SODIUM CHLORIDE 0.9% 500 ML IV SCH
[2020-06-03] MEDS ORDERED: cefTRIAXone SODIUM 1,000 MG in DEXTROSE 5% 50 ML IV SCH
[2020-06-03] MEDS: HYDROCORTISONE SOD 100 MG in SYRINGE 0 ML IV SCH ×2 (00:15→09:34)
[2020-06-03] MEDS: NORTRIPTYLINE HCL 10 MG CAP PO SCH ×2 (00:16→22:07)
[2020-06-03] MEDS: GABAPENTIN 300 MG CAP PO SCH ×3 (00:16→22:07)
[2020-06-03] MEDS: KETOROLAC 30 MG/ML VIAL IV PRN ×3 (01:29→22:07)
[2020-06-03 06:33] LABS: Estimated Average Glucose 108 mg/dl; Hemoglobin A1C 5.4 % (4.5-5.6)
--- NOTE | 2020-06-03 09:35 | Neurology Consultation ---
Date of Consultation June 03, 2020 Assessment & Plan (1) Arthralgia of both feet: (2) Paresthesias: (3) Small fiber neuropathy: this patient has complicated neurologically with a subacute course ( 5 weeks) of sudden onset diffuse arthralgias, lasting a week, followed by numbness, pain, dysesthesias, tenderness distally in the feet left greater than right side and to a lesser extent in the hands. On neurologic examination she has tenderness and swelling in the feet left greater than right side, multi sensory loss including large and small caliber sensory fiber modalities and some subtle weakness in the left upper extremity. There are no upper motor neuron signs, meningeal signs, or encephalopathy. Her reflexes are quite brisk throughout. EMG and nerve conduction studies were unremarkable for any obvious polyneuropathy or myopathy on May 21. Laboratory studies have not been very revealing for any significant disease so far. However, she did have elevated white count with increase limbs on May 12. Overall, I suspect an underlying rheumatologic/ immunologic inflammatory disease as the main problem. A small fiber neuropathy is likely secondary if present. She has some weakness in the left arm which is subtle but EMG showed no abnormalities. She does not have any obvious upper motor neuron signs or radicular symptoms otherwise. Recommendations: 1. Laboratory studies as ordered including CK, other tick-borne diseases besides Lyme (ehrlichiosis, babesiosis, Bartonella), ANGLE 12 profile, and others that are pending. Please look at the list that Dr. Henderson provided in her note dated June 02 of all the laboratory studies she suggested 2. Lumbar puncture to evaluate for elevated protein and cells. I would add MS profile 1 for inflammation and CSF Lyme, as well as glucose, cytology, and viral PCRs.. 3. Consider skin punch biopsies for protocol for small fiber neuropathy evaluation. 4. If the patient has a GB as variant will treat with IVIG. Otherwise, high- dose steroid was successful in resolving her symptoms. I will follow with you. Overall, I spent a total of 135 minutes with this case including review of records, direct evaluation patient bedside, and discussing the case with the patient at bedside as well as Dr. Barcenas including differential diagnosis and treatment options. History of Present Illness Reason for Consultation: Patient is a 29-year-old, who I was asked to see at the request of Drs. Santos and Shane, for neurologic consultation regarding numbness, weakness, and pain. Requesting Physician: Dr. Lynn Attending Physician: Homar Barcenas DO History of Present Illness patient tells me that she had a history of intermittent migrainous type headaches since age 11 not associated with her menstrual cycle. These are very intermittent and she does not believe she has had a significant headache in over 1 year. She does have a history of mild intermittent asthma but has no history of mood issues or autoimmune/ inflammatory disease. Patient has been treated with oral and topical antibiotics, as well as topical Retin-A for her acne. She stopped all of these preparations on April 24. On April 24, she was feeling well with no cold, flu, injury, illness, or other abnormality. she and her went to [place] and she was in the passenger seat. She noted the onset of a feverish feeling although she was not febrile and some stiffness in her neck (any time she has had a fever in the past she has had body aches and neck stiffness for the duration of fever). She had the acute onset of diffuse arthralgias. This was not in the muscles she felt but in all of the joints bilaterally and symmetrically. Did not necessarily affect her spine. This was very intense by the end of the day and that night she noted swelling and pain in her feet. Her joints in general, were not swollen. Her hands had pain and swelling and she developed some numbness Eventually. Patient had no rashes or discoloration of her skin. There are no vision issues or double vision. She had no incontinence of urine, ambulation issues, weakness of the limbs, fatigue of any significant nature or cognitive problems. She had no swallowing or speech problems. There was no chest pain or abdominal symptoms. [facility] laboratory studies April 28 showed a sed rate of 22 and a CBC which was unremarkable. Labs May 06 was unremarkable for TSH and Chem profile. Rheumatoid factor was negative.She ended up getting a Medrol Dosepak and on the high doses she had no pain. As a tapered off she had more pain, swelling, and numbness and tingling in her hands and feet. By May 12 she went to the emergency room and there was an elevated sed rate of 34. A CBC was 11.2 with an increase in lymphs. Chem profile showed elevated C reactive protein of 0.9 and a normal TSH of 2.5. She was not . Lyme antibody titer was unremarkable and urinalysis was normal. She had no gonorrhea. patient ended up seeing a police shift commander May 16 who gave her a tapering course of prednisone. After several days of 40 milligram she felt much better with no pain but as the taper when on she started having symptoms in her hands and feet. On May 21, she had EMG and nerve conduction studies by Dr. Sinclair and this was unremarkable on the left arm and leg. There was no myopathy or neuropathy. Small fiber neuropathy was suspected. The feet are swollen but they are not red. The left is worse than the right. She does her feet and ice because of the burning pain. Their hot on the outside and warm to touch. She does have some numbness in her right 5th finger but she denies any weakness of the limbs otherwise. Sometime she is better during the day and worse in the evening and night. She does not sleep because of the pain. She saw Dr. Henderson June 02. she felt that this was small fiber neuropathy, possible GBS variant. She recommended a number of laboratory studies as well as a lumbar puncture. The patient was admitted from the emergency room June 02. at 15:56 temperature was 37.0 orally. Pulse was 104 And regular.Respiratory rate was 20 and regular. Blood pressure is 115/72 and O2 saturation was 100 percent on room air. Exam showed some swelling left greater than right foot and toes with tenderness. There may been some left calf tenderness as well. Venous Doppler showed no evidence of DVT. Left foot x-ray showed no erosive disease or fractures. CBC showed an elevated white count of 13.3 with increased neutrophils and a sed rate of 27. Chem profile showed potassium of 3.3 and a glucose of 107 with triglycerides of 157 and vitamin B12 of 630. hepatitis C was negative. Allergies Allergy/AdvReac Type Severity Reaction Status Date / Time No Known Allergies Allergy Verified 06/02/20 17:40 Home Medications Home Medications Medication Instructions Recorded Confirmed Type clindamycin phosphate 1 appln TOP HS 05/12/20 06/02/20 History fish,bora,flax oils-om3,6,9no1 1 cap PO HS 05/12/20 06/02/20 History [[place] 3-6-9] no.144-folic acid 1 tab PO HS 05/12/20 06/02/20 History [] vitamin E 400 unit PO HS 05/12/20 06/02/20 History celecoxib [Celebrex] 200 mg PO DAILY PRN 06/02/20 06/02/20 History gabapentin 300 mg PO HS 06/02/20 06/02/20 History prednisone 20 mg PO DAILY 06/02/20 06/02/20 History Patient History Medical History Asthma Migraine Surgical History No significant past surgical history Family History Mother Depression Dyslipidemia Schizophrenia Hypothyroidism Father Diabetes Grandmother (Paternal) Uterine cancer Social History Smoking Status: Never smoker Hx Alcohol Use: Yes Alcohol type: beer and wine Alcohol Intake Frequency Comment: once a month or less. 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 Other Information That Helps Us Care for You: No Feels Safe at Home: Yes Assistive Devices: Walker Review of Systems Constitutional: + fatigue and + weakness; no fever Eyes: no diplopia, no eye pain and no worsening vision Ear, Nose, Mouth, Throat: no ear pain, no tinnitus, no hearing loss, no dizziness, no hoarseness and no dysphagia Respiratory: no cough and no dyspnea Cardiovascular: no chest pain, no palpitations and no lightheadedness Gastrointestinal: no abdominal pain, no nausea and no vomiting Genitourinary: no dysuria, no urinary frequency and no urinary incontinence Musculoskeletal: + joint pain; no back pain, no neck pain, no radicular pain and no myalgia Integumentary: no rash and no lesions Neurologic: + localized weakness and + numbness; no gait abnormality, no generalized weakness, no tingling, no tremor(s), no abnormal movements, no headache(s), no abnormal speech, no confusion and no memory loss Psychiatric: no depression, no irritability, no anxiety, no difficulty concentrating, no confusion and no hallucinations Endocrine: no fatigue and no flushing Hematologic / Lymphatic: no easy bleeding and no easy bruising Allergy / Immunological: no urticaria and no problem reported Exam (Neuro) Physical Exam: The patient is right-handed. The patient is awake, alert, and attentive. Speech is normal without any aphasia or dysarthria. She can name objects, repeat phrases, and has normal spontaneous speech. Mentation and thought processes are intact, with orientation to person, place and time, and normal fund of knowledge. Attention and concentration are normal. Mood and affect are normal and appropriate. General appearance and grooming are normal. Short and long-term memory are intact. The discs are sharp with positive venous pulsations bilaterally. There are no exudates, hemorrhages, or blood vessel changes seen. Pupils are 4 mm bilaterally and reactive to light. Extraocular eye muscles are intact without nystagmus. Visual acuity and visual cortes seem normal grossly to confrontation. There are no deficits to sensation in the face in all 3 distributions of the fifth cranial nerve bilaterally. Corneal reflexes are positive bilaterally. Facial strength and symmetry was normal bilaterally. Hearing seems normal to whisper and finger rub bilaterally. Palate moves well without asymmetry. There is normal sternocleidomastoid and trapezius (shoulder shrug) strength bilaterally. Tongue is midline with good strength bilaterally. Neck has a full range of motion without discomfort. There are no cervical bruits bilaterally. There are no cranial or ocular bruits. Heart is without murmur. There is a regular rhythm and rate. Cervical, thoracic, and lumbar spine are nontender to palpation. Gait is narrow based But very difficult due to caution from pain putting weight on her left foot particularly the toes and ball of her foot. She needs the assistance of at least 1 to ambulate because she cannot bear weight on the left foot. With outstretched arms there is no drift. There are no resting, postural, or action tremors. There is no ataxia with finger to nose testing. There is good facility in the hands. No other abnormal involuntary movements are noted. Motor strength is 5/5 diffusely in the Right arm including deltoids, biceps, triceps, brachioradialis, wrist flexors and extensors, can filler, and intrinsic hand muscles. left upper extremity had 5/5 strength in the deltoid but 4+/ 5 in the biceps, triceps, brachioradialis, wrist flexor and extensors and intrinsic hand muscles/can filler. I believe the fingers seemed mildly swollen but she feels they are not. Joints are not particularly tender to palpation. Motor strength is 5/5 diffusely in the legs bilaterally including hip flexors, quadriceps, hamstrings, gastrocnemius, tibialis anterior, tibialis posterior, and Peroneii muscles. The toes and midfoot are tender to palpation and she has a little giveaway weakness secondary to pain but I see no actual weakness in the left or right lower extremities. The feet and toes are swollen left greater than right side.Toe extensors are normal and there is good bulk in the extensor digitorum brevis muscles bilaterally. The limbs have good tone without rigidity or spasticity. There is no atrophy noted in the muscles. Muscle bulk is normal, and no fasciculations seen. Sensory examination Reveals some decreased sensation to pin in a sock distribution to the mid foot bilaterally. There is mild vibratory sense loss distally in the right foot and mild to moderate in the left foot. There is mild position sense loss in both feet and there is normal temperature sensation in both feet. The hands are spared with all modalities and there is no other sensory levels. Reflexes are 2/4 in the biceps, triceps, brachioradialis, quadriceps, and Achilles tendons bilaterally. There is no clonus bilaterally. Toes are downgoing with plantar stimulation bilaterally. Peripheral pulses are present and of normal quality distally in all 4 limbs. Results & Data ([facility]) Vital Signs (Past 12 Hours) Vital Signs Temp Pulse Pulse Pulse Resp BP BP 06/03/20 07:01 36.5 C 88 18 06/02/20 23:22 37.6 C H 100 H 16 110/79 06/02/20 22:39 91 H 19 111/70 BP Pulse Ox 06/03/20 07:01 112/70 100 06/02/20 23:22 99 06/02/20 22:39 99 PG Care Time/CCT Total # of Minutes Spent Total Time Spent with Patient: Total time spent is greater than 50% in coordination of care (as documented) at patient's floor/unit and/or counseling patient: Coding Level of Care Code 62321 Office/OBS Consult Lvl 5 Diagnoses Arthralgia of both feet M25.571; M25.572 Paresthesias R20.2 Small fiber neuropathy G62.9 Time Spent (min) 135 Comment Add [id number] and [id number] for proper billing for 135 minutes as observation.
[2020-06-03] MEDS: ENOXAPARIN INJ 40 MG/0.4 ML SYR SQ SCH (09:46)
[2020-06-03] MEDS ORDERED: VANCOMYCIN HCL 750 MG in SODIUM CHLORIDE 0.9% 250 ML IV SCH (10:00)
[2020-06-03] MEDS ORDERED: MoRPHine SULFATE 2 MG/ML CARP IV PRN (13:31)
[2020-06-03] MEDS: ACETAMINOPHEN 325 MG TAB PO SCH ×2 (14:22→22:06)
[2020-06-03] MEDS: methylPREDNISolone 60 MG in SYRINGE 0 ML IV SCH ×2 (14:22→22:07)
--- NOTE | 2020-06-03 19:30 | Hospitalist Progress Note ---
Date of Service June 03, 2020 Assessment & Plan (1) Arthralgia of both feet: whole picture seems to be post viral w autoimmune/inflammatory response -agree wide w/u and autoimmune and neurologic disease should be screened for - although my suspicion is that this will be a subacute situation that hopefully will burn itself out with time and supportive care -w/u as ordered, follow clinically, follow for results -pain control - tylenol, gabapentin, nortrip, toradol prn, morphine prn. titrate gabapentin quickly if needed, possibly titrate nortrip quickly if needed too -increase steroids - has done better w sx relief on higher dosing (2) Paresthesias: (3) DVT prophylaxis: lovenox Admission and Anticipated Discharge Date Admission Date: June 02, 2020 Supervising Physician Co-Signing Physician Notes time in ~1212p, time out ~1245p >30mins face to face Subjective discussed w neuro extensively pt reiterates HPI -- details quite similar to H&P and neuro consult feet burning badly and can't sleep wrists hurt hands hurt and cramp feet only really feel good in ice baths - has been sleeping sitting up with feet in ice notes that steroids seem to help feet more gabapentin seems to help hands more diffuse body aches and febrile feeling that was present at the start of all this is gone. really desperately wants to sleep Review of Systems Review of Systems: All systems reviewed & are unremarkable except as noted in HPI & below Physical Exam Physical Exam: gen aaox3 pleasant - although tearful at times, nad heent nc at neck full ROM. breathing unlabored no accessory muscles good effort L foot more edematous than R and quite tender dull redness dorsum of great toe painful and weak ROM. R less swollen nontender. dorsum of L foot wtih dull redness but not really tender erythema - seems more streaking over tendons ankle without palpable effusion Results & Data Results & Data ([facility]) Vital Signs (Past 12 Hours) Vital Signs Temp Pulse Resp BP Pulse Ox 06/03/20 15:00 98.1 F 87 18 107/66 91 PG Care Time/CCT Total # of Minutes Spent Total Time Spent with Patient: Total time spent is greater than 50% in coordination of care (as documented) at patient's floor/unit and/or counseling patient: Coding Level of Care Code 87217 Subseq Hosp Care Lvl 3 Diagnoses Arthralgia of both feet M25.571; M25.572 Paresthesias R20.2 DVT prophylaxis Z29.9
--- NOTE | 2020-06-03 19:30 | Billing Data ---
Date of Service June 03, 2020 Coding Level of Care Code 55714 Subseq Obs Care Lvl 3
--- NOTE | 2020-06-03 19:30 | Billing Data ---
Date of Service June 03, 2020 Coding Level of Care Code 26353 Prolonged Care (int'l)
[2020-06-03] MEDS ORDERED: NON-FORMULARY MEDICATION (Clindamycin Phosphate 1 APPLN) TOP SCH (21:00)
[2020-06-03] MEDS ORDERED: [UNRECOGNIZED DRUG - REMARK] PO SCH (21:00)
--- NOTE | 2020-06-03 21:36 | Billing Data ---
Date of Service June 03, 2020 Coding Level of Care Code 41745 Initial Inpt Care Lvl 2
[2020-06-03] MEDS: TOCOPHERYL, DL-ALPHA 400 UNITS CAP PO SCH (22:07)
[2020-06-03] MEDS: PRENATAL VITAMIN 1 TAB PO SCH (22:07)
[2020-06-04] MEDS: MoRPHine SULFATE 4 MG/ML 1 ML CARP\\VIAL IV PRN ×3 (00:52→23:54)
[2020-06-04] MEDS ORDERED: VANCOMYCIN TROUGH ONE (01:30)
[2020-06-04] MEDS: DICLOFENAC SOD 1% GEL 100 GM TUBE EXT PRN (03:23)
[2020-06-04] MEDS: methylPREDNISolone 60 MG in SYRINGE 0 ML IV SCH ×3 (04:58→21:36)
[2020-06-04] MEDS: ENOXAPARIN INJ 40 MG/0.4 ML SYR SQ SCH (07:44)
[2020-06-04] MEDS: ACETAMINOPHEN 325 MG TAB PO SCH ×3 (07:44→21:33)
[2020-06-04] MEDS: GABAPENTIN 300 MG CAP PO SCH ×2 (07:44→21:33)
[2020-06-04 09:06] LABS: Hematocrit (blood only) 41.2 % (37-47); Hemoglobin 13.9 g/dL (12.0-16.0); Immature Granulocytes # (auto) 0.05 K/uL (0.00-0.02); Immature Granulocytes % (auto) 0.3 %; Lymphocytes # (auto) 1.22 K/uL (1.2-3.4); Mean Corpuscular Hemoglobin 30.5 pg (25-34); Mean Corpuscular Hgb Conc 33.7 g/dL (32-36); Mean Corpuscular Volume 90.4 fL (80-100); Mean Platelet Volume 9.1 fL (7.4-10.4); Monocytes # (auto) 0.36 K/uL (0.11-0.59); Monocytes % (auto) 2.1 %; Neutrophils # (auto) 15.77 K/uL (1.4-6.5); Neutrophils % (auto) 90.6 %; Platelet Count 324 K/uL (130-400); RDW Coefficient of Variation 13.5 % (11.5-14.5); RDW Standard Deviation 44.4 fL (36.4-46.3); Red Blood Count 4.56 M/uL (4.2-5.4)
[2020-06-04 09:35] LABS: Creatinine Clr Calc Pharmacy 95.4 ml/min; Est GFR (African American) 125.1
--- NOTE | 2020-06-04 10:10 | Neurology Progress Note ---
Date of Service June 04, 2020 Assessment & Plan (1) Arthralgia of both feet: (2) Paresthesias: (3) Small fiber neuropathy: this patient is complicated neurologically with a subacute course ( 5 weeks) of sudden onset diffuse arthralgias, lasting a week, followed by numbness, pain, dysesthesias, tenderness distally in the feet left greater than right side and to a lesser extent in the hands. On neurologic examination she has tenderness and swelling in the feet left greater than right side, multi sensory loss including large and small caliber sensory fiber modalities and some subtle weakness in the left upper extremity. There are no upper motor neuron signs, meningeal signs, or encephalopathy. Her reflexes are quite brisk throughout. EMG and nerve conduction studies were unremarkable for any obvious polyneuropathy or myopathy on May 21. Laboratory studies have not been very revealing for any significant disease so far. However, she did have elevated white count with increase lymphs on May 12. Overall, I suspect an underlying rheumatologic/ immunologic inflammatory disease as the main problem. A small fiber neuropathy is likely secondary if present. She has some weakness in the left arm which is subtle but EMG showed no abnormalities. She does not have any obvious upper motor neuron signs or radicular symptoms otherwise. In addition, with her significant fluctuation of symptoms going from completely normal to severe pain, I cannot entirely exclude a functional issue. So far, high-dose steroids have not resolved her symptoms. Recommendations: 1. Laboratory studies as ordered including CK, other tick-borne diseases besides Lyme (ehrlichiosis, babesiosis, Bartonella), ANGLE 12 profile, and others that are pending. Please look at the list that Dr. Henderson provided in her note dated June 02 of all the laboratory studies she suggested. 2. Awaiting lumbar puncture results. 3. Consider skin punch biopsies per protocol for small fiber neuropathy evaluation. 4. If the patient has a GBS variant, will treat with IVIG. Otherwise, high- dose steroid was successful in resolving her symptoms. I will follow with you. Overall, I spent a total of 35 minutes with this case including review of records, direct evaluation patient bedside, and discussing the case with the patient at bedside as well as Dr. Barcenas including differential diagnosis and treatment options. Admission and Anticipated Discharge Date Admission Date: June 02, 2020 Subjective Patient spontaneously was improving nicely in her left foot pain yesterday during the day. 2 p.m. until 8 p.m. she had no pain and could walk well. This was prior to getting steroids. By nine o'clock in the evening her left foot and other symptoms returned. This was even despite the Solu-Medrol. This morning she still has significant symptoms and had 2 doses of morphine overnight. This morning she feels the right foot has some pain but not as bad as yesterday. Her left foot has the same out of pain as yesterday. Her hands are spared. The patient just had her lumbar puncture , just prior to me coming into the room this morning. CBC shows an elevated white count of 17 this morning. Many laboratory studies were obtained but are still pending. Results [facility] ([facility]) Vital Signs (Past 12 Hours) Vital Signs Temp Pulse Resp BP Pulse Ox 06/04/20 07:18 36.6 C 105 H 16 101/67 99 Exam (Neuro) Physical Exam: she is awake and alert. Speech is without aphasia or dysarthria. Mood and affect are normal appropriate. Thought processes are intact to conversation. Extraocular eye muscles are intact without nystagmus. Motor function is symmetrical in the limbs. She is tender in the left foot distally to palpation but not the right. PG Care Time/CCT Total # of Minutes Spent Total Time Spent with Patient: Total time spent is greater than 50% in coordination of care (as documented) at patient's floor/unit and/or counseling patient: Coding Level of Care Code 48598 Subseq Hosp Care Lvl 3 Diagnoses Arthralgia of both feet M25.571; M25.572 Paresthesias R20.2 Small fiber neuropathy G62.9 Time Spent (min) 35
[2020-06-04 10:14] LABS: CSF Chemistry Tube # 1
--- NOTE | 2020-06-04 10:21 | Fluoroscopy Report ---
FL lumbar puncture diagnostic CLINICAL HISTORY: weakness, ascending neuropathy COMPARISON STUDY: None FLUOROSCOPY TIME: 11 seconds. NUMBER OF FLUOROSCOPIC IMAGES: 1 FINDINGS: A timeout was performed. The risks the procedure were explained the patient informed consent was obtained. The patient was prepped and draped in sterile fashion. The skin was anesthetized 1% lidocaine. A fluoroscopic guidance, lumbar puncture was performed at the L5-S1 level. The opening pressure was 21 cm H2O. 8 cc of clear CSF was withdrawn via gravity drip and into 4 tubes. The fluid was sent for l aboratory analysis as specified by the referring clinician. There were no immediate complications. IMPRESSION: Successful fluoroscopically guided diagnostic lumbar puncture performed at the L5-S1 lev el. ACT 112: Negative or not required by law. Electronically signed by: Antonio Norwood M.D. 06/04/2020 10:19 AM
[2020-06-04 10:24] LABS: CSF Glucose 84 mg/dl (40-70)
[2020-06-04 10:46] LABS: Uric Acid 3.2 mg/dl (2.6-7.2)
[2020-06-04 10:53] LABS: Appearance CSF Clear; CSF Count Tube # 3; CSF Xanthrochromic No xanthochromia; Color CSF Colorless; Red Blood Cell CSF (A) 1 /uL (0-); Red Blood Cell CSF (B) 1 /uL (0-); White Blood Cell CSF (A) 0 /uL (0-5); White Blood Cell CSF (B) 0 /uL (0-5)
--- NOTE | 2020-06-04 13:19 | Medical Student Progress Note ---
Date of Service June 04, 2020 Assessment & Plan (1) Arthralgia of both feet: 1) Arthralgia of both feet: now most painful in distal feet -Most tender at great toes bilaterally w/ passive movement suggesting possible articular etiology -Cause still likely post viral w/ autoimmune/inflammatory response. -Continued work up for neurologic or autoimmune causes. Continuing to follow results. - Continue pain control with conservative measures such as ice. In addition Tylenol, gabapentin, nortriptyline, toradol prn, morphine prn. -Continue SoluMEDROL 60mg IV q8 steroids 2) Paresthesias: -Possibly similar etiology as above. -Treatment as above 3) DVT prophylaxis: lovenox Admission and Anticipated Discharge Date Admission Date: June 02, 2020 Supervising Attestation I personally examined the patient and verified all piña points of history and exam, discussed case, and agree with decision making with Shannan Greenfield MS4. feet feeling bad all day today. hands a good deal better - did have episode - took a video - appears c/w hand cramp lateral aspect. L foot worse but both feet hurt - lots of pressure L great toe. notes rabies exposure in the past but isnt' sure if it would be relevant. vitals noted nad heent nc at mmm breathing unlabored hands/wrists no effusions or palpable tenderness, b/l feet but L worse than R and great toe worse than the rest maybe - but all fairly bad - tender at joints/tender to palp at joints - hard to feel effusion in a toe but seems to have DIP and maybe PIP effusions and IP joint effusion great toe - painful AROM and PROM joint pain/effusions - concern on arthritic response. doubt true auto-immune disease although panel is pending. suspect neuropathy sx probably from inflammation rather than nerve but neuropathy w/u underway. steroids, pain control, follow studies, serial exams, time. add voltaren gel. Subjective The patient stated yesterday she had symptomatic relief of her foot pain to the point that she was able to ambulate, her pain returned later in the evening. She stated that an ice bath which normally made her feet better was helpful except for exquisite 10/10 pain in her left great toe. She did not feel like the increased dose of steroids gave her much relief yet at this point. Review of Systems Constitutional: + body aches; no fever, no chills and no sweats Respiratory: no cough, no dyspnea, no pain on inspiration and no wheezing Cardiovascular: no chest pain, no dyspnea, no palpitations and no syncope Neurologic: + tingling and + paresthesia; no loss of sensation and no dizziness Physical Exam Constitutional: Well appearing female in no acute distress resting comfortably in bed. Eyes: PERRL, conjunctivae normal, anicteric sclerae Respiratory: Lungs clear to auscultation bilaterally, no wheezes, rales or rhonchi Cardiovascular: Regular rate and rhythm, no murmurs rubs or extra heart sounds appreciated Gastrointestinal (Abdomen): normoactive bowel sounds, nontender to palpation, no hepatosplenomegaly Musculoskeletal: With regard to the feet: bilateral edema to the ankles, non- erythematous, distal pulses intact, tender to palpation throughout the feet bilaterally with L worse than R. Most tender at great toes bilaterally with passive flexion and extension of the toe. Results & Data ([facility]) Vital Signs (Past 12 Hours) Vital Signs Temp Pulse Resp BP Pulse Ox 06/04/20 10:15 37 C 98 H 20 115/77 100 06/04/20 10:00 37 C 99 H 20 110/75 100 06/04/20 07:18 36.6 C 105 H 16 101/67 99
--- NOTE | 2020-06-04 18:32 | Billing Data ---
Date of Service June 04, 2020 Coding Level of Care Code 01173 Subseq Hosp Care Lvl 3
--- NOTE | 2020-06-04 18:37 | Billing Data ---
Date of Service June 04, 2020 Coding Level of Care Code 26041 Subseq Hosp Care Lvl 3
--- NOTE | 2020-06-04 18:37 | Billing Data ---
Date of Service June 04, 2020 Coding Level of Care Code 17964 Prolonged Care (int'l)
[2020-06-04] MEDS: NORTRIPTYLINE HCL 10 MG CAP PO SCH (21:32)
[2020-06-04] MEDS: TOCOPHERYL, DL-ALPHA 400 UNITS CAP PO SCH (21:33)
[2020-06-04] MEDS: PRENATAL VITAMIN 1 TAB PO SCH (21:33)
[2020-06-04] MEDS: DICLOFENAC SOD 1% GEL 100 GM TUBE EXT SCH (21:36)
[2020-06-05] MEDS: DICLOFENAC SOD 1% GEL 100 GM TUBE EXT PRN (03:38)
[2020-06-05] MEDS: MoRPHine SULFATE 4 MG/ML 1 ML CARP\\VIAL IV PRN ×2 (03:50→23:15)
[2020-06-05] MEDS: methylPREDNISolone 60 MG in SYRINGE 0 ML IV SCH ×3 (05:43→23:42)
[2020-06-05 08:35] LABS: Creatinine Ur 63 mg/dL (20-275); Protein, Urine Random 4 mg/dL (5-24); Ur Protein/Creat Ratio mg/g 63 mg/g creat (21-161); Urine Abnormal Protein Band 1 DNR mg/dL (NONE DETECTED); Urine Abnormal Protein Band 2 DNR mg/dL (NONE DETECTED); Urine Abnormal Protein Band 3 DNR mg/dL (NONE DETECTED); Urine Protein/Creatinine Ratio 0.063 (0.021-0.161)
[2020-06-05] MEDS: ENOXAPARIN INJ 40 MG/0.4 ML SYR SQ SCH (08:59)
[2020-06-05] MEDS: DICLOFENAC SOD 1% GEL 100 GM TUBE EXT SCH ×4 (09:00→20:16)
[2020-06-05] MEDS: ACETAMINOPHEN 325 MG TAB PO SCH ×3 (09:01→20:20)
[2020-06-05] MEDS: GABAPENTIN 300 MG CAP PO SCH ×2 (09:01→20:14)
--- NOTE | 2020-06-05 18:06 | Medical Student Progress Note ---
Date of Service June 05, 2020 Assessment & Plan (1) Arthralgia of both feet: 1) Arthralgia of both feet: Improving, continues to be most painful in distal feet -Most tender at great toes L>R w/ passive movement suggesting possible ar ticular etiology -Less pain in posterior portions of feet today bilaterally compared to yesterday. -Cause still likely post viral w/ autoimmune/inflammatory response. -Continued work up for neurologic or autoimmune causes. Continuing to follow results. - Continue pain control with conservative measures such as ice/heat as tolerated. In addition, Voltaren gel, Tylenol, toradol prn, morphine prn. - increase evening gabapentin to 1000mg - d/c nortriptyline, -Continue SoluMEDROL 60mg IV q8 steroids 2) Paresthesias: -Possibly similar etiology as above. -Treatment as above 3) DVT prophylaxis: lovenox Admission and Anticipated Discharge Date Admission Date: June 02, 2020 Admission and Anticipated Discharge Date Admission Date: June 04, 2020 Supervising Attestation I personally examined the patient and verified all piña points of history and exam, discussed case, and agree with decision making with Shannan Greenfield MS4. feet feeling better hands worse. vitals noted nad but tearful at times heent nc at mmm breathing unlabored no accessory muscles good effort. feet with diminished findings as it relates to toe swelling/effusions - far less tender and less swollen and more mobile. no hand effusions/joint tenderness does have easy to provoke cramping of L hand 5th digit. (+) tinnel's at both wrist and elbow of ulnar nerve joint pain/effusions - concern on arthritic response. doubt true auto-immune disease although panel is pending. suspect neuropathy sx probably from inflammation rather than nerve but neuropathy w/u underway. steroids, pain control, follow studies, serial exams, time. stop nortrip doesn't seem to be h elping - increase gabapentin. ?hopefully home tomorrow if pain control continues to improve --> and ongoing outpt f/u on improvement and on w/u pending Subjective Patient stated that she was able to sleep better last evening. Additionally, she states that her pain was a more manageable 8/10 compared to the 10/10 pain yesterday. The pain continues to be worst in L foot more than the R with the majority focused on the toes, akua the great toe. She continues to have improvement with icing except that it exacerbates pain in great toe on L foot. She is interested in attempting to forgo morphine tonight. She would like to see the results of her LP. Review of Systems Constitutional: no fever, no chills, no sweats and no increased appetite Respiratory: no cough, no dyspnea, no pain on inspiration and no wheezing Cardiovascular: no chest pain, no dyspnea, no orthopnea and no palpitations Musculoskeletal: + back pain, + joint pain and + swelling; no myalgia Physical Exam Constitutional: Well appearing female resting comfortably in bed in no acute distress Eyes: PERRL, conjunctivae normal, anicteric sclerae ENMT: external ear and nose normal, oropharynx normal Respiratory: Lungs clear to auscultation bilaterally, no wheezes, rales or rhonchi. Normal work of breathing Cardiovascular: Regular rate and rhythm, no murmurs, rubs or extra heart sounds. Musculoskeletal: trace edema to the ankle on L, non-erythematous b/l, distal pulses and sensation intact b/l, tender to palpation throughout the toes bilaterally with L worse than R. Most tender at great toe on L with passive flexion and extension of the toe. Full range of flexion and extension of toes b/l. Slight effusion palpable in great toe of L foot. Neurologic: PERRL, EOMI, accommodation nl, no face palsy, no dysarthria Psychiatric: A+Ox3, euthymic affect Results & Data ([facility]) Vital Signs (Past 12 Hours) Vital Signs Temp Pulse Resp BP Pulse Ox 06/05/20 16:00 36.8 C 76 16 114/75 98 06/05/20 07:58 36.6 C 97 H 18 119/74 97
--- NOTE | 2020-06-05 19:28 | Billing Data ---
Date of Service June 05, 2020 Coding Level of Care Code 76973 Subseq Hosp Care Lvl 3
[2020-06-05] MEDS: NORTRIPTYLINE HCL 10 MG CAP PO SCH (20:14)
[2020-06-05] MEDS: TOCOPHERYL, DL-ALPHA 400 UNITS CAP PO SCH (20:15)
[2020-06-05] MEDS: KETOROLAC 30 MG/ML VIAL IV PRN (20:25)
[2020-06-05] MEDS ORDERED: GABAPENTIN 600 MG TAB PO STA (21:34)
[2020-06-05] MEDS: PRENATAL VITAMIN 1 TAB PO SCH (23:17)
[2020-06-06] MEDS ORDERED: HYDROmorphone INJ 0.5 MG/0.5 ML SYR IV STA (00:15)
[2020-06-06] MEDS ORDERED: GABAPENTIN 100 MG CAP PO STA (00:22)
[2020-06-06] MEDS: methylPREDNISolone 60 MG in SYRINGE 0 ML IV SCH ×2 (05:41→14:04)
[2020-06-06] MEDS: ENOXAPARIN INJ 40 MG/0.4 ML SYR SQ SCH (08:23)
[2020-06-06] MEDS: DICLOFENAC SOD 1% GEL 100 GM TUBE EXT SCH ×4 (08:24→21:37)
[2020-06-06] MEDS: ACETAMINOPHEN 325 MG TAB PO SCH ×3 (08:25→21:35)
--- NOTE | 2020-06-06 09:51 | Neurology Progress Note ---
Date of Service June 06, 2020 Assessment & Plan (1) Arthralgia of both feet: (2) Paresthesias: (3) Small fiber neuropathy: This patient is complicated neurologically, with a subacute course ( 5 weeks) of sudden onset diffuse arthralgias, lasting a week, followed by numbness, pain, dysesthesias, tenderness distally in the feet left greater than right side and to a lesser extent in the hands. On neurologic examination today she has tenderness and swelling in the feet left greater than right side, There are no upper motor neuron signs, meningeal signs, or encephalopathy. EMG and nerve conduction studies were unremarkable for any obvious polyneuropathy or myopathy on May 21. Laboratory studies have not been very revealing for any significant disease so far. However, she did have elevated white count with increase lymphs on May 12. Lumbar puncture is unrevealing so far and she has no evidence for Guillain-[place] syndrome. Overall, I suspect an underlying rheumatologic/ immunologic inflammatory disease as the main problem. A small fiber neuropathy is secondary, if present. In addition, with her significant fluctuation of symptoms going from completely normal to severe pain, I cannot entirely exclude a functional issue. So far, high-dose steroids have not resolved her symptoms (Although she claims the help. Patient has positional headache consistent with a post LP headache. Recommendations: 1. Awaiting final laboratory and CSF results. 2. Treat post LP headache with increasing fluid intake and caffeine. Consider blood patch by anesthesia if she is not improving after 48 hours. 3. We could consider skin punch biopsies, per protocol, for small fiber neuropathy evaluation, but we are holding off on this for now. 4. Consider addition of tricyclic antidepressant such as doxepin instead of nortriptyline to help with burning pain and sleep. 5. Pain management could be consulted as well. 6. She should follow up with Rheumatology also Overall, I spent a total of 35 minutes with this case including review of recor ds, direct evaluation patient bedside, and discussion of the case with the patient at bedside as well as Dr. Barcenas including differential diagnosis and treatment options. Admission and Anticipated Discharge Date Admission Date: June 04, 2020 Subjective patient has been having some positional headache with a generalized headache sitting up and disappearing with laying down. She has some spine pain. She believes the steroids have helped some but still has painful swollen toes right greater than le She has had little success with gabapentin. She believes that the low dose of nortriptyline might have helped. Currently she is afebrile with a blood pressure of 120/80. Lumbar puncture showed 0 white cells and protein of 36. Cultures are negative so far. Other parameters are pending. Multiple serum laboratory studies are pending as well. Results & Data ([facility]) Vital Signs (Past 12 Hours) Vital Signs Temp Pulse Resp BP Pulse Ox 06/06/20 08:27 36.8 C 73 18 120/80 100 06/05/20 23:01 36.7 C 68 16 115/74 100 Exam (Neuro) Physical Exam: She is awake and alert. Speech is without aphasia or dysarthria. Mood and affect seem normal appropriate. Thought processes are intact. Extraocular eye muscles are intact without nystagmus. There is no facial droop. Coordination is normal in the arms and strength is symmetrical. She is very tender and swollen in her feet bilaterally the mid foot and toes are tender bilateral. She is mildly erythematous. Hands appear swollen to be but she claims they are not swollen. PG Care Time/CCT Total # of Minutes Spent Total Time Spent with Patient: Total time spent is greater than 50% in coordination of care (as documented) at patient's floor/unit and/or counseling patient: Coding Level of Care Code 82281 Subseq Hosp Care Lvl 3 Diagnoses Arthralgia of both feet M25.571; M25.572 Paresthesias R20.2 Small fiber neuropathy G62.9 Time Spent (min) 35
[2020-06-06 13:20] LABS: CMV DNA Qnt Real Time PCR <200 IU/mL (<200); CMV DNA Quant PCR <2.30 log IU/mL (<2.30); HSV Type 1 DNA Not Detected (Not Detected); HSV Type 1&2 DNA Source CSF; HSV Type 2 DNA Not Detected (Not Detected)
[2020-06-06] MEDS: ONDANSETRON INJ 2 MG/ML 2 ML VIAL IV PRN ×2 (16:35→17:42)
[2020-06-06] MEDS ORDERED: ONDANSETRON 8MG OD TAB PO STA (17:13)
[2020-06-06] MEDS: IBUPROFEN 600 MG TAB PO SCH ×2 (17:42→23:42)
--- NOTE | 2020-06-06 17:52 | Medical Student Progress Note ---
Date of Service June 06, 2020 Assessment & Plan (1) Arthralgia of both feet: 1) Arthralgia of both feet: Stable, continues to be most painful in distal feet -Most tender at great toes L>R w/ passive movement suggesting possible articular etiology -Most painful on toes, posterior feet b/l are nontender. -Cause still likely post viral w/ autoimmune/inflammatory response. -Continued work up for neurologic or autoimmune causes. Continuing to follow results. - Transition to PO regimen from IV with goal of discharge tomorrow -Tylenol 1000mg PO q8hr -Ibuprofen 600mg PO q8hr -Gabapentin 300mg qAM, 900mg qPM -Voltaren gel PRN 2) Paresthesias: -Possibly similar etiology as above. -Treatment as above 3) DVT prophylaxis: lovenox Admission and Anticipated Discharge Date Admission Date: June 02, 2020 Admission and Anticipated Discharge Date Admission Date: June 04, 2020 Supervising Attestation I personally examined the patient and verified all piña points of history and exam, discussed case, and agree with decision making with Shannan Greenfield MS4. feelign about the same. burning on feet really just on toes and mostly under joints. vitals noted nad but tearful at times heent nc at mmm breathing unlabored no accessory muscles good effort. feet with ongoing diminished findings as it relates to toe swelling/effusions - far less tender and less swollen and more mobile. pain really only on palp or tap of joint. no skin tenderness joint pain/effusions - concern on arthritic response. doubt true auto-immune disease although panel is pending. suspect neuropathy sx probably from inflammation rather than nerve but neuropathy w/u underway. transition to PO regimen for hopes of working towards ne home and close outpt f/u otherwise as above Subjective Patient stated she continues to have pain in her back and headache, told it was likely secondary to LP. This morning she felt that lying flat improved her headache but made it harder to ice her feet, causing her feet to hurt more. She continues to endorse pain and burning in her feet bilaterally. The majority of the pain occurs in her great toe bilaterally. She is interested in starting to manage her medications with PO vs IV to begin to plan for discharge. Review of Systems Constitutional: no fever, no chills, no sweats and no weakness Respiratory: no cough, no dyspnea, no pain on inspiration and no wheezing Cardiovascular: no chest pain, no dyspnea, no orthopnea and no palpitations Gastrointestinal: + nausea; no abdominal pain, no bloating and no hematemesis Physical Exam Constitutional: Well appearing woman resting in bed in no acute distress Eyes: PERRL, conjunctivae normal, anicteric sclerae ENMT: external ear and nose normal, oropharynx normal Respiratory: Lungs clear to auscultation bilaterally, no wheezes, rales or rhonchi Cardiovascular: Regular rate and rhythm, no murmur rubs or extra heart sounds Gastrointestinal (Abdomen): Normoactive bowel sounds, nontender to palpation, no hepatosplenomegaly Musculoskeletal: With attention to the foot: Non-erythematous b/l, distal pulses and sensation intact b/l, tender to palpation throughout the toes bilaterally with L worse than R. Most tender at great toe on L with passive flexion and extension of the toe. Decreased active flexion and extension of toes b/l 2/2 pain. Skin: no rashes, warm and dry Results & Data ([facility]) Vital Signs (Past 12 Hours) Vital Signs Temp Pulse Resp BP BP Pulse Ox 06/06/20 16:08 36.9 C 77 20 122/74 98 06/06/20 08:27 36.8 C 73 18 120/80 100
[2020-06-06 18:21] LABS: Alpha-Tocopherol 26.2 mg/L (5.7-19.9); Angiotensin Converting Enzyme 17 U/L (9-67); Anti Nuclear Antibody Screen POSITIVE (NEGATIVE); Anti-SS-A <1.0 NEG AI (<1.0 NEG); Anti-SS-B <1.0 NEG AI (<1.0 NEG); Arsenic Blood <3 mcg/L (<23); HIV 1 RNA PCR Copies/ML <20 NOT DETECTED copies/mL (NOT DETECTED); HIV-1 RNA Log Copies/mL <1.30 NOT DETECTED (NOT DETECTED); IgA Serum 201 mg/dL (47-310); Lead Blood <1 mcg/dL (<5); Mercury, blood <4 mcg/L (<=10); Methylmalonic Acid 113 nmol/L (87-318); Tis Trans IgA 1 U/mL; Vitamin E Beta-Gam Tocopherol <1.0 mg/L (<=4.3)
--- NOTE | 2020-06-06 18:27 | Billing Data ---
Date of Service June 06, 2020 Coding Level of Care Code 10698 Subseq Hosp Care Lvl 2
[2020-06-06] MEDS: PRENATAL VITAMIN 1 TAB PO SCH (21:07)
[2020-06-06] MEDS: TOCOPHERYL, DL-ALPHA 400 UNITS CAP PO SCH (21:08)
[2020-06-06] MEDS: GABAPENTIN 600 MG TAB PO SCH (21:36)
[2020-06-07 00:39] LABS: Anti Cardiolipin Ab IgG <14 GPL; Anti Cardiolipin Ab IgM <12 MPL; Anti Nuclear Antibody Screen POSITIVE (NEGATIVE); Anti-Cardiolipin Ab IgA <11 APL; Anti-Centromere Ab <1.0 NEG AI (<1.0 NEG); Anti-SS-A <1.0 NEG AI (<1.0 NEG); Anti-SS-B <1.0 NEG AI (<1.0 NEG); Chromatin Antibody <1.0 NEG AI (<1.0 NEG); Complement C3 133 mg/dL (83-193); DNA ds Crithidia NEGATIVE (NEGATIVE); Microsomal Ab 7 IU/mL (<9); RNP Antibody <1.0 NEG AI (<1.0 NEG); Scleroderma Anti Scl-70 Ab <1.0 NEG AI (<1.0 NEG); Sm Antibody <1.0 NEG AI (<1.0 NEG)
[2020-06-07] MEDS: MoRPHine SULFATE 4 MG/ML 1 ML CARP\\VIAL IV PRN ×2 (02:42→21:04)
[2020-06-07] MEDS: DICLOFENAC SOD 1% GEL 100 GM TUBE EXT PRN (05:26)
[2020-06-07 08:23] LABS: Hematocrit (blood only) 40.6 % (37-47); Hemoglobin 13.7 g/dL (12.0-16.0); Mean Corpuscular Hemoglobin 30.3 pg (25-34); Mean Corpuscular Hgb Conc 33.7 g/dL (32-36); Mean Corpuscular Volume 89.8 fL (80-100); Mean Platelet Volume 9.2 fL (7.4-10.4); Platelet Count 337 K/uL (130-400); RDW Coefficient of Variation 13.6 % (11.5-14.5); RDW Standard Deviation 44.7 fL (36.4-46.3); Red Blood Count 4.52 M/uL (4.2-5.4); White Blood Count 16.97 K/uL (4.8-10.8)
[2020-06-07 08:41] LABS: Basophils # (auto) 0.01 K/uL (0-0.2); Basophils % (auto) 0.1 %; Eosinophils # (auto) 0.02 K/uL (0-0.5); Eosinophils % (auto) 0.1 %; Immature Granulocytes # (auto) 0.14 K/uL (0.00-0.02); Immature Granulocytes % (auto) 0.8 %; Lymphocytes # (auto) 5.78 K/uL (1.2-3.4); Lymphocytes % (auto) 34.1 %; Monocytes # (auto) 1.49 K/uL (0.11-0.59); Monocytes % (auto) 8.8 %; Neutrophils # (auto) 9.53 K/uL (1.4-6.5); Neutrophils % (auto) 56.1 %
[2020-06-07] MEDS: IBUPROFEN 600 MG TAB PO SCH ×3 (08:49→23:45)
[2020-06-07 09:00] LABS: BUN Creatinine Ratio 31.6 (10-20); Calcium 9.3 mg/dl (8.5-10.1); Creatinine Clr Calc Pharmacy 103.8 ml/min; Est GFR (African American) 135.1; Est GFR (Non-African American) 116.6; Potassium 3.8 mmol/L (3.5-5.1)
[2020-06-07] MEDS: ACETAMINOPHEN 325 MG TAB PO SCH ×2 (09:00→11:08)
[2020-06-07] MEDS: ENOXAPARIN INJ 40 MG/0.4 ML SYR SQ SCH (10:13)
[2020-06-07] MEDS: DICLOFENAC SOD 1% GEL 100 GM TUBE EXT SCH ×4 (10:19→21:00)
[2020-06-07] MEDS ORDERED: predniSONE 20 MG TAB PO STA (10:49)
--- NOTE | 2020-06-07 10:58 | Discharge Summary ---
Date of Service June 07, 2020 Admission HPI Per Admitting Provider 29-year-old female with past medical history migraines, mild intermittent asthma, gestational diabetes presents with concerns of bilateral hand and leg pain and left foot cellulitis. Patient notes that hand and foot pain began on April 24, 2020 and has gradually worsened. Patient notes no inciting or traumatic event. Patient describes pain as burning/freezing with sensation of needle pricking. Radiation to left calf, 9/10 on severity scale. Alleviated with icing. Made worse by walking and putting shoes on and activities such as typing. Patient notes that she has not had any previous occurrence like this ever before. Patient was seen by orthopedics who put patient on gabapentin, which patient notes did help some. Patient was additionally seen later on right rheumatology (Dr. Cason) will put patient on a steroid taper starting with 40 mg prednisone. Patient is currently on 20 mg, however notes that this did not help as much as when she was on 40 mg. Additionally notes that about 2 days ago she noticed increased erythema and swelling on the left foot. Patient was seen today by neurology who noted cellulitic foot changes and recommend patient go to ER for further evaluation. Patient otherwise denies any fevers, chills, sweats, nausea, vomiting, diarrhea. Patient no other acute concerns or complaints. Work-up to date: RF negative, Mg 2.1, uric acid 5.2, Lyme negative, parvovirus n egative, COVID negative, ESR 22, ANGLE negative, TSH WNL Pertinent labs: WBC 13.36, ESR 27, CRP negative, potassium 3.3. Otherwise largely unremarkable CBC CMP Foot x-ray: No acute fractures. No evidence of erosive disease. Venous Doppler study: No evidence of left lower extremity DVT. ER course: IV cefazolin 3g, IV Toradol 30 mg Social history: Denies any tobacco or illicit drug use. Social alcohol use Discharge Data Allergies Allergy/AdvReac Type Severity Reaction Status Date / Time No Known Allergies Allergy Verified 06/02/20 17:40 Consultations 06/02/20 19:17 ED Decision to Admit Stat 06/02/20 23:28 Consult Neurology Routine Ordered Studies 06/02/20 17:05 US venous doppler LE LT Stat 06/04/20 13:00 FL lumbar puncture diagnostic Routine Discharge Plan Discharge Items Reason For Visit: CELLULITIS Condition on Discharge: Good Follow-up/Referrals: Avelino Nolan [Primary Care Provider] - Medications and DC Order Prescriptions: No Action prednisone 20 mg Tablet 20 mg PO DAILY RF: 0 gabapentin 300 mg capsule 300 mg PO HS RF: 0 celecoxib [Celebrex] 200 mg capsule 200 mg PO DAILY PRN (Reason: Pain) RF: 0 vitamin E 400 unit Capsule 400 unit PO HS RF: 0 [place] 3-6-9 1,200 mg Capsule 1 cap PO HS RF: 0 400 mcg Tablet,Chewable 1 tab PO HS RF: 0 clindamycin phosphate 1 % lotion 1 appln TOP HS RF: 0 Admission Data Admit Date/Time: 06/04/20 14:18 Attending Provider: Homar Barcenas Admit Provider: Viet Santos Primary Care Provider: Avelino Nolan Other Providers: Terrence Lynn ; Boni Plunkett
[2020-06-07] MEDS: GABAPENTIN 300 MG CAP PO SCH (11:03)
--- NOTE | 2020-06-07 11:21 | Hospitalist Progress Note ---
Date of Service June 07, 2020 Assessment & Plan (1) Cellulitis of foot, left: 29-year-old female with past medical history migraines, mild intermittent asthma, gestational diabetes direct admitted by Neurology for evaluation of bilateral hand and foot pain, with continued improvement in hand pain but still with L foot pain. Left foot paresthesias and joint pain: - Pain appears to be improving in all limbs save for her left lower extremity. - Pain worst in toes, especially at joints. - Likely postviral in etiology, other etiologies include autoimmune cause given positive ANGLE, small fiber neuropathy, psychogenic cause. - Several CSF and neurologic studies pending at this time, including viral studies, antibody studies. - EMG normal. - Uric acid normal, RF negative, Lyme negative, CRP negative, TSH normal. - Continue Tylenol 1000mg PO q8h. - Ibuprofen 600mg PO q8hr. - Gabapentin 300mg qAM, 900mg qPM. - Voltaren gel q6h. - Appreciate neurology recommendations during her course. - Steroids transitioned to PO prednisone 60mg daily, for slow taper for eventual discharge home. - Suspect d/c home tomorrow, as patient's status continues to improve. - Recommend rheumatology follow up outpatient upon discharge. Headache: - Likely post-LP and 2/2 no sleep overnight, with history of migraine. - Tylenol and ibuprofen as above. - NSS 1L bolus given. - Advised caffeine intake in the form of tea or coffee while admitted. - Defer blood patching at this time, as more likely due to chronic headache and deficiency of sleep. FEN/GI: Regular diet DVT prophylaxis: Lovenox SQ Code Status: FULL CODE Dispo: MedSur Admission and Anticipated Discharge Date Admission Date: June 04, 2020 Supervising Physician Co-Signing Physician Notes I personally examined the patient and verified all piña points of history and exam, discussed case, and agree with decision making with Dr Walsh. still needed morphine. symptoms overall pretty similar. also seems to have more sx from headache and nausea today than before. present - updated to the best of my ability vitals noted nad but tearful at times heent nc at mmm breathing unlabored no accessory muscles good effort. feet with ongoing diminished findings as it relates to toe swelling/effusions - similar to yesterday. no skin tenderness joint pain/effusions - concern on arthritic response. doubt true auto-immune disease although panel is pending. suspect neuropathy sx probably from inflammation rather than nerve but neuropathy w/u underway. PO pain meds. ANGLE (+) but reportedly recently negative so await titer but anticipate nonspecific low grade otherwise as above Subjective Overnight patient was unable to sleep very well due to left foot pain. Reports that since starting gabapentin her R foot and bilateral hand discomfort have decreased considerably. She is still having some headache despite intermittent tylenol and ibuprofen as needed. No dizziness. Some nausea with one episode of emesis yesterday afternoon. No chest pain or shortness of breath. No abdominal pain. Describes her left foot pain as a burning sensation, "like tiny needles" that is isolated to her toes and distal dorsal foot. No numbness. Review of Systems Review of Systems: All systems reviewed & are unremarkable except as noted in HPI & below Constitutional: no fever, no chills and no malaise Respiratory: no cough and no dyspnea Cardiovascular: no chest pain, no palpitations and no edema Gastrointestinal: no abdominal pain, no constipation and no diarrhea/loose stools Genitourinary: no dysuria and no hematuria Musculoskeletal: + joint pain Neurologic: + paresthesia (LLE) and + headache(s) Physical Exam Constitutional: WD/WN, vitals as above Eyes: PERRL, conjunctivae normal, anicteric sclerae ENMT: external ear and nose normal, oropharynx normal Neck: trachea midline, no thyromegaly Respiratory: normal respiratory effort, lungs clear to auscultation Cardiovascular: RRR, no murmur, no edema Gastrointestinal (Abdomen): normal bowel sounds, soft, nontender, no hepatosplenomegaly Skin: No rashes L foot warm to the touch, worse at joints Fullness of MTP joints Tenderness to light touch from MTP L foot to distal phalanges Psychiatric: Orientation: alert and oriented x 3 Affect: + anxious affect Results & Data Results & Data ([facility]) Vital Signs (Past 12 Hours) Vital Signs Temp Pulse Pulse Resp BP Pulse Ox 06/07/20 08:00 36.6 C 62 18 118/79 100 06/07/20 00:02 37.0 C 57 L 14 112/76 96 Resident Activity Tracking Resident Involvement: Resident Care Provided Care Provided: Adult [facility]
[2020-06-07] MEDS ORDERED: SODIUM CHLORIDE 0.9% 1000ML 1,000 ML IV SCH (11:30)
[2020-06-07] MEDS: ONDANSETRON 4 MG OD TAB PO PRN (12:06)
[2020-06-07] MEDS: ACETAMINOPHEN 500 MG TAB PO SCH ×2 (15:54→20:58)
--- NOTE | 2020-06-07 19:27 | Billing Data ---
Date of Service June 07, 2020 Coding Level of Care Code 32711 Subseq Hosp Care Lvl 3
[2020-06-07] MEDS: GABAPENTIN 600 MG TAB PO SCH (20:58)
[2020-06-07] MEDS: TOCOPHERYL, DL-ALPHA 400 UNITS CAP PO SCH (20:58)
[2020-06-07] MEDS: PRENATAL VITAMIN 1 TAB PO SCH (20:59)
[2020-06-07 21:31] LABS: Babesia microti IgG <1:64 titer (<1:64)
[2020-06-08] MEDS: MoRPHine SULFATE 4 MG/ML 1 ML CARP\\VIAL IV PRN (03:22)
[2020-06-08 05:41] LABS: EBV DNA Quant PCR <200 copies/mL (<200); EBV DNA Quant Source CSF; Enterovirus RNA by PCR Not Detected (Not Detected); Herpes Virus 6 (DNA) Not Detected (Not Detected); Herpes Virus 6 (DNA) Source CSF; Lyme DNA PCR CSF or Synovial Not detected (Not Detected); Lyme DNA Source CSF; VZ DNA Source CSF; Varicella Zoster Virus DNA PCR Not Detected (Not Detected)
[2020-06-08] MEDS ORDERED: MoRPHine SULFATE 4 MG/ML 1 ML CARP\\VIAL IV PRN (07:37)
[2020-06-08] MEDS: GABAPENTIN 300 MG CAP PO SCH (09:04)
[2020-06-08] MEDS: IBUPROFEN 600 MG TAB PO SCH ×2 (09:04→17:10)
[2020-06-08] MEDS: ACETAMINOPHEN 500 MG TAB PO SCH ×2 (09:04→16:35)
[2020-06-08] MEDS: DICLOFENAC SOD 1% GEL 100 GM TUBE EXT SCH ×2 (09:05→17:10)
[2020-06-08] MEDS: ENOXAPARIN INJ 40 MG/0.4 ML SYR SQ SCH (09:05)
[2020-06-08] MEDS ORDERED: ondansetron HCL 8 MG in DEXTROSE 5% 50 ML IV PRN (09:27)
[2020-06-08] MEDS: ONDANSETRON 4 MG OD TAB PO PRN (09:50)
[2020-06-08] MEDS ORDERED: predniSONE 20 MG TAB PO STA (14:05)
--- NOTE | 2020-06-08 14:10 | Hospitalist Progress Note ---
Date of Service June 08, 2020 Assessment & Plan (1) Arthralgia of both feet: 29-year-old female with past medical history migraines, mild intermittent asthma direct admitted by Neurology for evaluation of bilateral hand and foot pain, with continued improvement in hand pain but still with L foot pain. Left foot paresthesias and joint pain: - Per patient, pain at night is significantly worse, especially in the left toes at the joints. - Likely postviral in etiology, other etiologies include autoimmune cause given positive ANGLE, small fiber neuropathy, psychogenic cause. - Several CSF and neurologic studies pending at this time, including viral studies, antibody studies. - EMG normal. - Uric acid normal, RF negative, Lyme negative, CRP negative, TSH normal. - Continue Tylenol 1000mg PO q8h. - Ibuprofen 600mg PO q8hr. - Gabapentin 300mg qAM, 900mg qPM. - Voltaren gel q6h. - Have appreciate neurology consult recommendations during her course. - Steroids transitioned to PO prednisone 60mg daily, for slow taper for eventual discharge home. - Suspect d/c home as patient's status improves. - Recommend rheumatology follow up outpatient upon discharge. Headache: - Likely post-LP and 2/2 no restful sleep several nights, with history of migraine. - Tylenol and ibuprofen as above. - NSS 1L bolus given yesterday without improvement. - Advised caffeine intake in the form of tea or coffee while admitted. - Will consult Anesthesiology for blood patching at this time, though symptoms likely multifactorial and also in part due to chronic headache history and deficiency of sleep. FEN/GI: Regular diet DVT prophylaxis: Lovenox SQ Code Status: FULL CODE Dispo: Judy (2) Paresthesias: (3) Post-lumbar puncture headache: (4) Anxiety: Admission and Anticipated Discharge Date Admission Date: June 04, 2020 Subjective Overnight patient reports that her feet "swelled up like melons", and that nothing is helping her pain. She also had a headache and nausea, nausea improved with zofran but headache not improved with scheduled tylenol/nsaid or with IV morphine. Tearful in the room saying that she cannot get any sleep at night and the only thing that helps her discomfort is ice to the affected areas. No complaints of fevers or chills, no dizziness, no chest pain or SOB, no diarrhea or constipation. Review of Systems Review of Systems: All systems reviewed & are unremarkable except as noted in HPI & below Constitutional: no fever, no chills and no malaise Respiratory: no cough and no dyspnea Cardiovascular: no chest pain, no palpitations and no edema Gastrointestinal: no abdominal pain, no constipation and no diarrhea/loose stools Genitourinary: no dysuria and no hematuria Musculoskeletal: + joint pain Neurologic: + paresthesia (LLE) and + headache(s) Physical Exam Constitutional: WD/WN, vitals as above retching while I was in the room Eyes: PERRL, conjunctivae normal, anicteric sclerae ENMT: external ear and nose normal, oropharynx normal Neck: trachea midline, no thyromegaly Respiratory: normal respiratory effort, lungs clear to auscultation Cardiovascular: RRR, no murmur, no edema Gastrointestinal (Abdomen): normal bowel sounds, soft, nontender, no hepatosplenomegaly Musculoskeletal: Extremities: no cyanosis and no clubbing Skin: No rashes L foot warm to the touch compared to R, worse at MTP joints Fullness of MTP joints Tenderness to light touch from MTP L foot to distal phalanges Neurologic: moves all extremities; no focal motor deficits Motor/Sensory: no tremor Psychiatric: Orientation: alert and oriented x 3 Affect: + anxious affect Results & Data Results & Data ([facility]) Vital Signs (Past 12 Hours) Vital Signs Temp Pulse Resp BP Pulse Ox 06/08/20 07:30 36.8 C 79 20 116/73 97 Resident Activity Tracking Resident Involvement: Resident Care Provided Care Provided: Adult Hospital Medicine
--- NOTE | 2020-06-08 16:16 | Discharge Summary ---
Date of Service June 08, 2020 Admission HPI Per Admitting Provider 29-year-old female with past medical history migraines, mild intermittent asthma, gestational diabetes presents with concerns of bilateral hand and leg pain and left foot cellulitis. Patient notes that hand and foot pain began on April 24, 2020 and has gradually worsened. Patient notes no inciting or traumatic event. Patient describes pain as burning/freezing with sensation of needle pricking. Radiation to left calf, 9/10 on severity scale. Alleviated with icing. Made worse by walking and putting shoes on and activities such as typing. Patient notes that she has not had any previous occurrence like this ever before. Patient was seen by orthopedics who put patient on gabapentin, which patient notes did help some. Patient was additionally seen later on right rheumatology (Dr. Cason) will put patient on a steroid taper starting with 40 mg prednisone. Patient is currently on 20 mg, however notes that this did not help as much as when she was on 40 mg. Additionally notes that about 2 days ago she noticed increased erythema and swelling on the left foot. Patient was seen today by neurology who noted cellulitic foot changes and recommend patient go to ER for further evaluation. Patient otherwise denies any fevers, chills, sweats, nausea, vomiting, diarrhea. Patient no other acute concerns or complaints. Work-up to date: RF negative, Mg 2.1, uric acid 5.2, Lyme negative, parvovirus n egative, COVID negative, ESR 22, ANGLE negative, TSH WNL Pertinent labs: WBC 13.36, ESR 27, CRP negative, potassium 3.3. Otherwise largely unremarkable CBC CMP Foot x-ray: No acute fractures. No evidence of erosive disease. Venous Doppler study: No evidence of left lower extremity DVT. ER course: IV cefazolin 3g, IV Toradol 30 mg Admission Exam Per Admitting Provider Constitutional: WD/WN, vitals as above Eyes: PERRL, conjunctivae normal, anicteric sclerae ENMT: external ear and nose normal, oropharynx normal Respiratory: normal respiratory effort, lungs clear to auscultation Cardiovascular: RRR, no murmur, no edema Gastrointestinal (Abdomen): normal bowel sounds, soft, nontender, no hepatosplenomegaly Musculoskeletal: Lower extremities tender to palpation L>R with left calf tenderness Skin: moderate swelling to the left foot with erythema and tenderness Neurologic: CN's II-XI intact bilaterally and moves all extremities; no focal motor deficits Psychiatric: A+Ox3, euthymic affect Principal Diagnosis arthralgia and paresthesia of feet and hands of unknown etiology Discharge Exam Constitutional: WD/WN, vitals as above Eyes: PERRL, conjunctivae normal, anicteric sclerae ENMT: external ear and nose normal, oropharynx normal Neck: trachea midline, no thyromegaly Respiratory: normal respiratory effort, lungs clear to auscultation Cardiovascular: RRR, no murmur, no edema Gastrointestinal (Abdomen): normal bowel sounds, soft, nontender, no hepatosplenomegaly Skin: No rashes L foot warm to the touch, worse at joints Fullness of MTP joints Tenderness to light touch from MTP L foot to distal phalanges Psychiatric: Orientation: alert and oriented x 3 Affect: + anxious affect Discharge Data Allergies Allergy/AdvReac Type Severity Reaction Status Date / Time No Known Allergies Allergy Verified 06/02/20 17:40 Consultations 06/02/20 19:17 ED Decision to Admit Stat 06/02/20 23:28 Consult Neurology Routine Ordered Studies 06/02/20 17:05 US venous doppler LE LT Stat 06/04/20 13:00 FL lumbar puncture diagnostic Routine Hospital Course (1) Arthralgia of both feet: 29-year-old female with past medical history migraines, mild intermittent asthma direct admitted by Neurology for evaluation of bilateral hand and foot pain, with continued improvement in hand pain but still with L foot pain. Left foot paresthesias and joint pain: - Per patient, pain at night is significantly worse, especially in the left toes at the joints. - Likely postviral in etiology, other etiologies include autoimmune cause given positive ANGLE, small fiber neuropathy, psychogenic cause. - Several CSF and neurologic studies pending at this time, including viral studies, antibody studies. - EMG normal. - Uric acid normal, RF negative, Lyme negative, CRP negative, TSH normal. - Have appreciate neurology consult recommendations during her course. - Steroids transitioned to PO prednisone 40mg daily for discharge home until can be seen by PCP. - Recommend rheumatology/neurology follow up outpatient upon discharge. - Continue Tylenol 1000mg PO q8h. - Ibuprofen 600mg PO q8hr. - Gabapentin 300mg qAM, 900mg qPM. - Voltaren gel q6h. - Frequent cold water soaks as the patient finds this helpful for pain. Headache: - Likely post-LP and 2/2 no restful sleep several nights, with history of migraine. - Tylenol and ibuprofen as above. - NSS 1L bolus given yesterday without improvement. - Advised caffeine intake in the form of tea or coffee while admitted. - Patient desires discharge home. - Melatonin 10mg qHS PRN sleep. Zofran PRN nausea. Total Time Total Time Spent Total Time Spent (In Minutes): <30 Discharge Plan Discharge Items Patient Disposition: Home - Self-Care Reason For Visit: Polyarthritis Discharge Diagnosis: polyarthritis , paresthesias Condition on Discharge: Good Activity: Per Instructions section Lifting: No more than 10 pounds Exercise/Sports: Gradually increase as tolerated Driving/Machine Use: No limitations Non-emergency contact: Primary Care Provider and Neurologist Call non-emergency contact if: you have any medication questions and your symptoms worsen Follow-up/Referrals: Meghann Rhodes MD [Resident] - Diet: Regular Addtl Attending Provider Instructions: You were admitted to the hospital for concerns regarding foot and hand pain, tingling, and swelling. You had a lumbar puncture which did not show any signs of acute bacterial infection. Your testing for gout and rheumatoid disease was negative. Your testing for tick borne illnesses was negative. You had a muscle conductivity study which showed normal nerve conduction. You had an ANGLE, a lab marker of inflammation and possibly autoimmune disease, which was positive. Your pain improved with medications and ice packs to your feet, and your hands got much better. You developed a headache and nausea due to your lumbar puncture, which was treated with fluids and nausea medication. You were felt to be safe fo r discharge home with the following recommendations: 1) Please schedule follow ups with both Rheumatology and Neurology to discuss your admission and your pending testing. Some neurologic and rheumatologic markers have not yet resulted. 2) Please john Dr. Rhodes's office at [phone] to schedule an appointment to establish care in her family practice office within 7 days from discharge. 3) I have sent several prescriptions to the [facility] pharmacy in [place]. Please take them as outlined below. Please take one melatonin 10mg pill nightly as needed for sleep. Take one Zofran (ondansetron) tablet every 6 hours as needed for nausea and vomiting. Take one 300mg gabapentin pill in the morning, and 900mg in the evening. Use your voltaren gel as needed to the affected foot for pain. You can also use tylenol and ibuprofen. I have sent a prescription for a steroid burst pack. Tomorrow, you will take 50 milligrams (five 10 milligram pills). The following day (06/10), take 40 milligrams (four 10 mg pills) and do that same 40mg dose daily until you see Dr. Rhodes. Pending Studies at Discharge: Yes (Antibody markers, CSF viral studies) Stand-Alone Forms: My [facility], Smoking Cessation Medications and DC Order Prescriptions: New gabapentin 600 mg Tablet 900 mg PO QPM 30 Days Qty: 45 RF: 0 gabapentin 300 mg Capsule 300 mg PO QAM Qty: 30 RF: 0 ondansetron 4 mg Tablet,Disintegrating 4 mg PO Q6H PRN (Reason: nausea and vomiting) Qty: 30 RF: 0 diclofenac sodium [Voltaren] 1 % Gel 2 g EXT QID Qty: 100 RF: 0 melatonin 10 mg capsule 10 mg PO HS PRN (Reason: sleep) Qty: 30 RF: 0 prednisone 10 mg tablets,dose pack See Rx Instructions .ROUTE .COMPLEX Qty: 48 RF: 0 gabapentin 300 mg capsule 300 mg PO QAM Qty: 30 RF: 0 gabapentin 300 mg capsule 900 mg PO HS Qty: 30 RF: 0 Continued celecoxib [Celebrex] 200 mg capsule 200 mg PO DAILY PRN (Reason: Pain) RF: 0 vitamin E 400 unit Capsule 400 unit PO HS RF: 0 [place] 3-6-9 1,200 mg Capsule 1 cap PO HS RF: 0 400 mcg Tablet,Chewable 1 tab PO HS RF: 0 clindamycin phosphate 1 % lotion 1 appln TOP HS RF: 0 Discontinued prednisone 20 mg Tablet 20 mg PO DAILY RF: 0 gabapentin 300 mg capsule 300 mg PO HS RF: 0 Discharge Orders: Discharge Order (Routine); Ordered 06/08/20 Ordered By: Cassi Coppola Admission Data Admit Date/Time: 06/04/20 14:18 Attending Provider: Homar Barcenas Admit Provider: Viet Santos Primary Care Provider: Avelino Nolan Other Providers: Terrence Lynn ; Boni Plunkett Other Interventions: Discharge Summary Assessment (RN) Last Done: 06/08/20 16:42 Supervising Physician Co-Signing Physician Notes I personally examined the patient and verified all piña points of history and exam, discussed case, and agree with decision making with Dr Walsh. still w headache and nausea, still w foot pain - but feels like she's doing well enough to want to go home. outlined dc plans and f/u plans vitals noted nad but tearful at times heent nc at mmm breathing unlabored no accessory muscles good effort. no focal neuro deficiits joint pain/effusions - concern on arthritic response. doubt true auto-immune disease although panel is pending. suspect neuropathy sx probably from inflammation rather than nerve but neuropathy w/u underway. PO pain meds. ANGLE (+) but reportedly recently negative so await titer but anticipate nonspecific low grade. transition to outpt management and follow up as outlined. for spinal headache offered to consult anesthesia for blood patch considerations but she declined. otherwise as above Resident Activity Tracking Resident Involvement: Resident Care Provided Care Provided: Adult Hospital Medicine
--- NOTE | 2020-06-08 17:49 | Billing Data ---
Date of Service June 08, 2020 Coding Level of Care Code D/C Day Management <30 mins
[2020-06-08] MEDS ORDERED: FAMOTIDINE 20 MG in SYRINGE 3 ML IV SCH (21:00)
[2020-06-09 12:13] LABS: ANA Pattern Nuclear, Speckled; ANA Pattern 2 Nuclear, Homogeneous
[2020-06-09 12:15] LABS: ANA Pattern Nuclear, Speckled
[2020-06-09 17:05] LABS: Vitamin B6 16.2 ng/mL (2.1-21.7)
[2020-06-10 06:55] LABS: Abnormal Protein Band 1 DNR mg/24 h (NONE DETECTED); Abnormal Protein Band 2 DNR mg/24 h (NONE DETECTED); Abnormal Protein Band 3 DNR mg/24 h (NONE DETECTED); Creatinine, 24 hr Urine 0.93 g/24 h (0.50-2.15); Protein, Urine 24 Hour NOTE mg/24 h (<150); Ur Protein/Creatinine Rat mg/g NOTE mg/g creat (< OR = 114); Urine Protein/Creatinine Ratio NOTE (< OR = 0.114)
[2020-06-10 22:20] LABS: Albumin 5.1 g/dL (3.5-5.2); Albumin, CSF 16.9 mg/dL (8.0-42.0); Bartonella henselae IgG Negative; Bartonella henselae IgM Ab Negative; Bartonella quintana IgG Ab Negative; Bartonella quintana IgM Ab Negative; IgG CSF 2.3 mg/dL (0.8-7.7); IgG Index, CSF 0.47 (<0.66); IgG Serum 1470 mg/dL (600-1640); Myelin Basic Protein <2.0 mcg/L (2.0-4.0); Synthesis Rate, IgG CSF -5.2 mg/24 h (-9.9-3.3)
== END 2020-06-08 17:50 | disposition home or self-care (01) | DRG 556 ==
LOC: ED 15:34 → 2N 15:34 → SUATTDRO 21:32 → 2N 22:39 → 3W 06-05 09:52

== ENCOUNTER 2020-06-25 18:20 | Observation (INO) ==
[2020-06-25] MEDS ORDERED: KETOROLAC TROMETHAMINE 15 MG/ML VIAL IV STA (19:10)
[2020-06-25] MEDS ORDERED: DEXAMETHASONE SOD INJ 10 MG/ML VIAL IV ONE (19:10)
[2020-06-25] MEDS ORDERED: SODIUM CHLORIDE 0.9% 1000ML 1,000 ML IV ONE (19:10)
[2020-06-25] MEDS ORDERED: ACETAMINOPHEN 1,000 MG/100 ML VIAL IV STA (19:10)
[2020-06-25] MEDS ORDERED: MoRPHine SULFATE 10 MG/ML CARP/VIAL IV STA ×2 (19:10→20:47)
--- NOTE | 2020-06-25 19:19 | Emergency Department Note ---
Impression & Plan Acute pain of right foot, Edema of right foot, Acute pain of left foot, Edema of left foot, Leukocytosis, Intractable pain ED Provider Note NAME: DIAMANTE HERRERA AGE: 29 SEX: F ARRIVES VIA: Walk-In INFORMANT: Patient, ED PROVIDER(S): Grady Jim MD CHIEF COMPLAINT: Right foot pain PLAN: Disposition: Admit MEDICAL DECISION MAKING: The patient is a 29 y/o woman with a pmhx of migraines, asthma, gestational diabetes who presents to the emergency department with flare of right foot pain and swelling, which is part of constellation of foot and hand pain that has wax and waned since April, with recent admission 06/04-06/08, with presumed rheumatologic diagnosis/ANGLE+, which remained to be definitively characterized. During her admission she had extensive testing including unremarkable CSF studies, normal EMG, Negative lyme screen, normal uric acid, negative RF, Normal TSH, Unremarkable plain films, negative DVT study. Patient reports her pain and swelling improved with steroids and is currently on 30mg a day methy lprednisolone. Today the patient was getting an outpatient MRI of her foot, which was ordered by her rheumatology but in the process of having her leg secured, she began to have intractable pain and so was referred to the emergency department. On arrival the patient is uncomfortable, restless, in mild pain distress. Her right foot is erythematous and warm but with white, cool toes, which she reports occurred from her frequent ice baths, which she says she performs for 10-20 minutes at a time with 10-20 minutes in between but frequently throughout the day. On re-evaluation after refrain from additional ice bath, color return to toes and exhibited brisk cap refill. Of note, following completion of ABIs, which were wnl. The patient's left foot (which was normal appearing on arrival) now also had begun to swell and become erythematous. Cap refill also brisk. Pedal pulses with triphasic signal. WBC 14.6, nonspecific and in setting of being on steroids. H/h and platelets wnl. ESR marginally elevated at 22. CRP wnl. Initial lactate 2.4 but chemistry without acidosis. Procalcitonin < 0.05. TSH wnl. CXR negative for acute process. Patient treated with numerous medications including IVF hydration, apap, Morphine, Dialudid, Toradol, Ativan and denying any significant improvement. Given the patient's intractable pain, reasonable to proceed with admission. Patient and agreeable. Case was discussed with FRANCIA Mason hospitalist, who will evaluate the patient for admission. Triage Nursing notes reviewed and agree them. Prior medical records reviewed Vital Signs: reviewed and remarkable for no significant abnormalities Differential diagnosis: DVT, musculoskeletal, infection, joint effusion, trauma, lymphedema, idiopathic, CHF, as well as other pathologies. ER treatment provided: See below. Diagnostics interpreted by me: ECG: Sinus tachycardia, 107 bpm, no ectopy, no overt ST elevation or depression. Cardiac Monitoring: An order for continuous cardiac monitoring was placed and demonstrated Sinus tachycardia, 107 bpm, no ectopy. Laboratory studies: See below Imaging studies: SINGLE VIEW CHEST CLINICAL HISTORY: Sepsis. FINDINGS: An AP, portable, upright chest radiograph is obtained. No prior studies are available for comparison at the time of dictation. The cardiomediastinal silhouette is unremarkable. The lungs and pleural spaces are clear. No pneumothorax is seen. The bony thorax is grossly intact. IMPRESSION: No active disease in the chest. - ULTRASOUND ANKLE BRACHIAL INDICES CLINICAL HISTORY: Right foot pain and swelling. FINDINGS: Ankle brachial indices are performed in ultrasound. Right brachial pressure measures 129. Pressures in the right posterior tibial artery measure 144 for an RINA of 1.12, and pressures in the right dorsalis pedis measure 157 for an RINA of 1.22. Pressures in the left posterior tibial artery measure 140 for an RINA of 1.09, and pressures in the left dorsalis pedis measure 130 for an RINA of 1.01. IMPRESSION: Ankle-brachial indices as above. Consultation(s): Case was discussed with Dr. Charles, FRANCIA hospitalist, who will evaluate the patient for admission. HPI: The patient is a 29 y/o woman with a pmhx of migraines, asthma, gestational diabetes who presents to the emergency department with flare of right foot pain and swelling, which is part of constellation of foot and hand pain that has wax and waned since April, with recent admission 06/04-06/08, with presumed rheumatologic diagnosis/ANGLE+, which remained to be definitively characterized. During her admission she had extensive testing including unremarkable CSF cande dies, normal EMG, Negative lyme screen, normal uric acid, negative RF, Normal TSH, Unremarkable plain films, negative DVT study. Patient reports her pain and swelling improved with steroids and is currently on 30mg a day methylprednisolone. Today the patient was getting an outpatient MRI of her foot, which was ordered by her rheumatology but in the process of having her leg secured, she began to have intractable pain and so was referred to the emergency department. ROS: See above HPI for pertinent positives & negatives. A total of 10 systems reviewed and were otherwise negative. PAST MEDICAL HISTORY:See Below PAST SURGICAL HISTORY:See Below FAMILY HISTORY:See Below SOCIAL HISTORY:See Below HOME MEDICATIONS:See Below ALLERGIES:See Below VITALS:See Below PHYSICAL EXAMINATION: GENERAL: Awake, alert, uncomfortable-appearing, in no distress HENT: Normocephalic, atraumatic. Oropharynx with dry mucous membranes and otherwise unremarkable. EYES: Normal conjunctiva. Sclera non-icteric. NECK: Supple. No nuchal rigidity. FROM. No JVD. RESPIRATORY: Clear to auscultation. CARDIAC: Regular rate, normal rhythm. Extremities warm and well perfused. Pulses equal. ABDOMEN: Soft, non-distended. No tenderness to palpation. No rebound or guarding. No masses. RECTAL: Deferred. MUSCULOSKELETAL: Chest examination reveals no tenderness. The back is symmetrical on inspection without obvious abnormality. There is no CVA tenderness to palpation. No joint edema. LOWER EXTREMITIES: Calves are equal size bilaterally. Edema, erythema, warmth to bilateral feet with brisk cap refill. NEURO: Normal sensorium. No sensory or motor deficits noted. SKIN: No jaundice noted. Grady Jim MD Past Med/Surg History Medical History Asthma Migraine Paresthesias Surgical History No significant past surgical history Family History Mother Depression Dyslipidemia Schizophrenia Hypothyroidism Father Diabetes Grandmother (Paternal) Uterine cancer Social History Smoking Status: Never smoker Hx Alcohol Use: Yes Alcohol type: beer, wine and hard liquor Alcohol Intake Frequency Comment: once a month or less. 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 Feels Safe at Home: Yes Safety Concerns: Feels Safe At This Time Assistive Devices: Crutches Allergies Allergies Allergy/AdvReac Type Severity Reaction Status Date / Time No Known Allergies Allergy Verified 06/25/20 20:04 Home Meds Home Medications Medication Instructions Recorded Confirmed Bradford 3-6-9 1 cap PO HS 05/12/20 06/25/20 1 tab PO HS 05/12/20 06/25/20 trazodone 150 mg PO HS PRN 06/13/20 06/25/20 acetaminophen [Tylenol Extra 1,000 mg PO DIRECTED PRN 06/25/20 06/25/20 Strength] ibuprofen 400 mg PO DIRECTED PRN 06/25/20 06/25/20 methylprednisolone 32 mg PO DAILY 06/25/20 06/25/20 Previous Rx's Medication Instructions Recorded gabapentin 300 mg PO QAM #30 cap 06/08/20 gabapentin 900 mg PO QPM 30 Days #45 tab 06/08/20 Results & Data (ED) Vital Signs Vital Signs - 24 hr 06/25/20 18:21 06/25/20 19:50 06/25/20 19:51 Temperature 36.6 C Temperature Source Oral Pulse Rate 125 H Pulse Rate [Apical] 102 H Pulse Rate from SpO2 Sensor Pulse Rhythm [Apical] Regular Respiratory Rate 30 H 24 Respiratory Effort / Characteristics Non-Labored Non-Labored Spontaneous Respiratory Depth Normal Shallow Respiratory Pattern Regular Blood Pressure 123/77 Blood Pressure Mean 92 Blood Pressure Position Sitting Pulse Oximetry 100 99 Oxygen Delivery Method Room Air Room Air Room Air Sepsis Recent Fever Within 48 Hours No Sepsis New/Unexplained Change in Mental Status No Sepsis Action Taken by Nursing No Action Required 06/25/20 20:00 06/25/20 20:46 06/25/20 21:00 Temperature Temperature Source Pulse Rate 108 H 99 H 94 H Pulse Rate [Apical] Pulse Rate from SpO2 Sensor 94 H Pulse Rhythm [Apical] Respiratory Rate 32 H 24 20 Respiratory Effort / Characteristics Respiratory Depth Respiratory Pattern Blood Pressure 132/89 108/82 141/88 H Blood Pressure Mean 97 85 107 Blood Pressure Position Pulse Oximetry 95 100 Oxygen Delivery Method Room Air Sepsis Recent Fever Within 48 Hours Sepsis New/Unexplained Change in Mental Status Sepsis Action Taken by Nursing 06/25/20 21:04 06/25/20 21:30 06/25/20 21:50 Temperature Temperature Source Pulse Rate 109 H Pulse Rate [Apical] Pulse Rate from SpO2 Sensor 107 H Pulse Rhythm [Apical] Respiratory Rate 33 H Respiratory Effort / Characteristics Non-Labored Spontaneous Non-Labored Spontaneous Respiratory Depth Respiratory Pattern Blood Pressure 138/95 Blood Pressure Mean 102 Blood Pressure Position Pulse Oximetry 100 Oxygen Delivery Method Room Air Room Air Room Air Sepsis Recent Fever Within 48 Hours Sepsis New/Unexplained Change in Mental Status Sepsis Action Taken by Nursing 06/25/20 22:00 06/25/20 22:19 06/25/20 22:30 Temperature Temperature Source Pulse Rate 98 H 120 H Pulse Rate [Apical] Pulse Rate from SpO2 Sensor 97 H 125 H Pulse Rhythm [Apical] Respiratory Rate 27 H 20 Respiratory Effort / Characteristics Non-Labored Spontaneous Respiratory Depth Respiratory Pattern Blood Pressure 127/79 131/105 H Blood Pressure Mean 99 114 Blood Pressure Position Pulse Oximetry 100 93 Oxygen Delivery Method Room Air Sepsis Recent Fever Within 48 Hours Sepsis New/Unexplained Change in Mental Status Sepsis Action Taken by Nursing 06/25/20 23:00 06/25/20 23:34 06/26/20 00:00 Temperature Temperature Source Pulse Rate 104 H 98 H 104 H Pulse Rate [Apical] Pulse Rate from SpO2 Sensor 115 H 103 H 105 H Pulse Rhythm [Apical] Respiratory Rate 17 19 15 Respiratory Effort / Characteristics Respiratory Depth Respiratory Pattern Blood Pressure 129/99 Blood Pressure Mean 110 Blood Pressure Position Pulse Oximetry 100 98 95 Oxygen Delivery Method Sepsis Recent Fever Within 48 Hours Sepsis New/Unexplained Change in Mental Status Sepsis Action Taken by Nursing Laboratory Data Attestation: I reviewed the patient's lab results. Result diagrams: 06/26/20 02:41 06/26/20 02:41 Lab Results 06/25/20 06/25/20 06/25/20 Range/Units 19:50 19:50 19:50 WBC 14.63 H (4.8-10.8) K/uL RBC 4.92 (4.2-5.4) M/uL Hgb 15.0 (12.0-16.0) g/dL Hct 44.5 (37-47) % MCV 90.4 (80-100) fL MCH 30.5 (25-34) pg MCHC 33.7 (32-36) g/dL RDW Std Deviation 43.7 (36.4-46.3) fL RDW Coeff of Elvira 13.2 (11.5-14.5) % Plt Count 445 H (130-400) K/uL MPV 9.4 (7.4-10.4) fL Immature Gran % (Auto) 0.4 % Neut % (Auto) 82.2 % Lymph % (Auto) 12.8 % [place] % (Auto) 4.6 % Eos % (Auto) 0.0 % Baso % (Auto) 0.0 % Neut # (Auto) 12.03 H (1.4-6.5) K/uL Lymph # (Auto) 1.87 (1.2-3.4) K/uL [place] # (Auto) 0.67 H (0.11-0.59) K/uL Eos # (Auto) 0.00 (0-0.5) K/uL Baso # (Auto) 0.00 (0-0.2) K/uL Immature Gran # (Auto) 0.06 H (0.00-0.02) K/uL ESR 22 H (0-21) mm/hr PT 11.1 (9.0-12.0) Seconds INR 1.1 (0.9-1.1) APTT 25.1 (21.0-31.0) Seconds PTT Ratio 0.9 Sodium (136-145) mmol/L Potassium (3.5-5.1) mmol/L Chloride (98-107) mmol/L Carbon Dioxide (21-32) mmol/L Anion Gap (3-11) BUN (7-18) mg/dl Creatinine (0.6-1.2) mg/dl Est Cr Clr Drug Dosing ml/min Est GFR ( Amer) Est GFR (Non-Af Amer) BUN/Creatinine Ratio (10-20) Glucose (70-99) mg/dl Lactate (0.4-2.0) mmol/L Calcium (8.5-10.1) mg/dl Phosphorus (2.5-4.9) mg/dl Magnesium (1.8-2.4) mg/dl Total Bilirubin (0.2-1) mg/dl Direct Bilirubin (0-0.2) mg/dl AST (15-37) U/L ALT (12-78) U/L Alkaline Phosphatase (45-117) U/L Total Creatine Kinase (26-192) U/L C-Reactive Protein (0-0.29) mg/dl Total Protein (6.4-8.2) gm/dl Albumin (3.4-5.0) gm/dl Globulin (2.5-4.0) gm/dl Albumin/Globulin Ratio (0.9-2) Procalcitonin (0-0.5) ng/ml TSH (0.300-4.500) uIu/ml HCG, Qual (Negative) 06/25/20 06/25/20 06/25/20 Range/Units 19:50 19:50 19:50 WBC (4.8-10.8) K/uL RBC (4.2-5.4) M/uL Hgb (12.0-16.0) g/dL Hct (37-47) % MCV (80-100) fL MCH (25-34) pg MCHC (32-36) g/dL RDW Std Deviation (36.4-46.3) fL RDW Coeff of Elvira (11.5-14.5) % Plt Count (130-400) K/uL MPV (7.4-10.4) fL Immature Gran % (Auto) % Neut % (Auto) % Lymph % (Auto) % [place] % (Auto) % Eos % (Auto) % Baso % (Auto) % Neut # (Auto) (1.4-6.5) K/uL Lymph # (Auto) (1.2-3.4) K/uL [place] # (Auto) (0.11-0.59) K/uL Eos # (Auto) (0-0.5) K/uL Baso # (Auto) (0-0.2) K/uL Immature Gran # (Auto) (0.00-0.02) K/uL ESR (0-21) mm/hr PT (9.0-12.0) Seconds INR (0.9-1.1) APTT (21.0-31.0) Seconds PTT Ratio Sodium 138 (136-145) mmol/L Potassium 3.4 L (3.5-5.1) mmol/L Chloride 106 (98-107) mmol/L Carbon Dioxide 25 (21-32) mmol/L Anion Gap 7.0 (3-11) BUN 14 (7-18) mg/dl Creatinine 0.73 (0.6-1.2) mg/dl Est Cr Clr Drug Dosing 96.1 ml/min Est GFR ( Amer) 127.2 Est GFR (Non-Af Amer) 109.7 BUN/Creatinine Ratio 18.8 (10-20) Glucose 96 (70-99) mg/dl Lactate 2.4 H* (0.4-2.0) mmol/L Calcium 10.0 (8.5-10.1) mg/dl Phosphorus 2.8 (2.5-4.9) mg/dl Magnesium 2.1 (1.8-2.4) mg/dl Total Bilirubin 1.2 H (0.2-1) mg/dl Direct Bilirubin 0.2 (0-0.2) mg/dl AST 8 L (15-37) U/L ALT 28 (12-78) U/L Alkaline Phosphatase 65 (45-117) U/L Total Creatine Kinase 41 (26-192) U/L C-Reactive Protein < 0.29 (0-0.29) mg/dl Total Protein 8.7 H (6.4-8.2) gm/dl Albumin 4.2 (3.4-5.0) gm/dl Globulin 4.5 H (2.5-4.0) gm/dl Albumin/Globulin Ratio 0.9 (0.9-2) Procalcitonin < 0.05 (0-0.5) ng/ml TSH 0.543 (0.300-4.500) uIu/ml HCG, Qual Negative (Negative) 06/25/20 Range/Units 22:10 WBC (4.8-10.8) K/uL RBC (4.2-5.4) M/uL Hgb (12.0-16.0) g/dL Hct (37-47) % MCV (80-100) fL MCH (25-34) pg MCHC (32-36) g/dL RDW Std Deviation (36.4-46.3) fL RDW Coeff of Elvira (11.5-14.5) % Plt Count (130-400) K/uL MPV (7.4-10.4) fL Immature Gran % (Auto) % Neut % (Auto) % Lymph % (Auto) % [place] % (Auto) % Eos % (Auto) % Baso % (Auto) % Neut # (Auto) (1.4-6.5) K/uL Lymph # (Auto) (1.2-3.4) K/uL [place] # (Auto) (0.11-0.59) K/uL Eos # (Auto) (0-0.5) K/uL Baso # (Auto) (0-0.2) K/uL Immature Gran # (Auto) (0.00-0.02) K/uL ESR (0-21) mm/hr PT (9.0-12.0) Seconds INR (0.9-1.1) APTT (21.0-31.0) Seconds PTT Ratio Sodium (136-145) mmol/L Potassium (3.5-5.1) mmol/L Chloride (98-107) mmol/L Carbon Dioxide (21-32) mmol/L Anion Gap (3-11) BUN (7-18) mg/dl Creatinine (0.6-1.2) mg/dl Est Cr Clr Drug Dosing ml/min Est GFR ( Amer) Est GFR (Non-Af Amer) BUN/Creatinine Ratio (10-20) Glucose (70-99) mg/dl Lactate 1.2 (0.4-2.0) mmol/L Calcium (8.5-10.1) mg/dl Phosphorus (2.5-4.9) mg/dl Magnesium (1.8-2.4) mg/dl Total Bilirubin (0.2-1) mg/dl Direct Bilirubin (0-0.2) mg/dl AST (15-37) U/L ALT (12-78) U/L Alkaline Phosphatase (45-117) U/L Total Creatine Kinase (26-192) U/L C-Reactive Protein (0-0.29) mg/dl Total Protein (6.4-8.2) gm/dl Albumin (3.4-5.0) gm/dl Globulin (2.5-4.0) gm/dl Albumin/Globulin Ratio (0.9-2) Procalcitonin (0-0.5) ng/ml TSH (0.300-4.500) uIu/ml HCG, Qual (Negative) Administered Medications Ketorolac Tromethamine (Ketorolac Tromethamine 15 Mg/Ml Vial) 15 mg IV Q6H PRN PRN Reason: Pain Stop: 07/01/20 02:31 Last Admin: 06/26/20 03:47 Dose: 15 mg Documented by: [id number] Discontinued Medications Dexamethasone (Dexamethasone Sod Inj 10 Mg/Ml Vial) 10 mg IV NOW ONE Stop: 06/25/20 19:11 Last Admin: 06/25/20 19:44 Dose: 10 mg Documented by: [id number] Hydromorphone HCl (Hydromorphone Inj 1 Mg/Ml Syringe) 1 mg IV NOW STA Stop: 06/25/20 21:37 Last Admin: 06/25/20 21:44 Dose: 1 mg Documented by: [id number] Sodium Chloride (Nss 1000ml) 1,000 mls @ 999 mls/hr IV .Q1H1M ONE Stop: 06/25/20 20:10 Last Infusion: 06/25/20 20:54 Dose: 0 mls/hr Documented by: [id number] Admin: 06/25/20 19:43 Dose: 999 mls/hr Documented by: [id number] Acetaminophen (Ofirmev) 1,000 mg in 100 mls @ 400 mls/hr IV NOW STA Stop: 06/25/20 19:24 Last Infusion: 06/25/20 20:00 Dose: 0 mls/hr Documented by: [id number] Admin: 06/25/20 19:43 Dose: 400 mls/hr Documented by: [id number] Lorazepam (Ativan) 1 mg in 2 mls @ 2 mls/min IV NOW STA Stop: 06/25/20 23:17 Last Admin: 06/25/20 23:28 Dose: 2 mls/min Documented by: [id number] Ketorolac Tromethamine (Ketorolac Tromethamine 15 Mg/Ml Vial) 15 mg IV NOW STA Stop: 06/25/20 19:11 Last Admin: 06/25/20 19:44 Dose: 15 mg Documented by: [id number] Morphine Sulfate (Morphine Sulfate 10 Mg/Ml Carp/Vial) 6 mg IV NOW STA Stop: 06/25/20 19:11 Last Admin: 06/25/20 19:43 Dose: 6 mg Documented by: [id number] Morphine Sulfate (Morphine Sulfate 10 Mg/Ml Carp/Vial) 8 mg IV NOW STA Stop: 06/25/20 20:48 Last Admin: 06/25/20 20:54 Dose: 8 mg Documented by: [id number] Discharge Plan Visit Data Chief Complaint: Foot Injury/Pain Stated Complaint: RIGHT FOOT SWELLING/PAIN ED Provider: Grady Jim Discharge Problem: Acute pain of right foot, Edema of right foot, Acute pain of left foot, Edema of left foot, Leukocytosis, Intractable pain Patient Disposition: Admitted As Inpatient Discharge Instructions Interventions: ED Discharge Assessment Last Done: 06/26/20 02:07
[2020-06-25 20:08] LABS: Hematocrit (blood only) 44.5 % (37-47); Immature Granulocytes # (auto) 0.06 K/uL (0.00-0.02); Immature Granulocytes % (auto) 0.4 %; Lymphocytes # (auto) 1.87 K/uL (1.2-3.4); Lymphocytes % (auto) 12.8 %; Mean Corpuscular Hemoglobin 30.5 pg (25-34); Mean Corpuscular Hgb Conc 33.7 g/dL (32-36); Mean Corpuscular Volume 90.4 fL (80-100); Mean Platelet Volume 9.4 fL (7.4-10.4); Monocytes # (auto) 0.67 K/uL (0.11-0.59); Monocytes % (auto) 4.6 %; Neutrophils # (auto) 12.03 K/uL (1.4-6.5); Neutrophils % (auto) 82.2 %; Platelet Count 445 K/uL (130-400); RDW Coefficient of Variation 13.2 % (11.5-14.5); RDW Standard Deviation 43.7 fL (36.4-46.3); Red Blood Count 4.92 M/uL (4.2-5.4); White Blood Count 14.63 K/uL (4.8-10.8)
[2020-06-25 20:18] LABS: INR 1.1 (0.9-1.1); Partial Thromboplastin Ratio 0.9; Partial Thromboplastin Time 25.1 Seconds (21.0-31.0); Prothrombin Time 11.1 Seconds (9.0-12.0)
[2020-06-25 20:24] LABS: Pregnancy Test, Serum Negative (Negative)
[2020-06-25 20:29] LABS: Alanine Aminotransferase 28 U/L (12-78); Albumin Level 4.2 gm/dl (3.4-5.0); Aspartate Aminotransferase 8 U/L (15-37); BUN Creatinine Ratio 18.8 (10-20); Bilirubin Direct 0.2 mg/dl (0-0.2); Blood Urea Nitrogen 14 mg/dl (7-18); C Reactive Protein < 0.29 mg/dl (0-0.29); Carbon Dioxide 25 mmol/L (21-32); Chloride 106 mmol/L (98-107); Creatinine Clr Calc Pharmacy 96.1 ml/min; Est GFR (African American) 127.2; Est GFR (Non-African American) 109.7; Glucose 96 mg/dl (70-99); Magnesium 2.1 mg/dl (1.8-2.4); Potassium 3.4 mmol/L (3.5-5.1); Sodium 138 mmol/L (136-145)
[2020-06-25 20:37] LABS: Albumin Globulin Ratio 0.9 (0.9-2); Alkaline Phosphatase 65 U/L (45-117); Bilirubin,Total 1.2 mg/dl (0.2-1); Creatine Kinase 41 U/L (26-192); Globulin 4.5 gm/dl (2.5-4.0); Phosphorus 2.8 mg/dl (2.5-4.9); Thyroid Stimulating Hormone 0.543 uIu/ml (0.300-4.500); Total Protein 8.7 gm/dl (6.4-8.2)
[2020-06-25 20:49] LABS: Procalcitonin < 0.05 ng/ml (0-0.5)
--- NOTE | 2020-06-25 21:05 | XRay Report ---
SINGLE VIEW CHEST CLINICAL HISTORY: Sepsis. FINDINGS: An AP, portable, upright chest radiograph is obtained. No prior studies are available for c omparison at the time of dictation. The cardiomediastinal silhouette is unremarkable. The lungs and pleural spaces are clear. No pneumothorax is seen. The bony thorax is grossly intact. IMPRESSION: No active disease in the chest. ACT 112: Negative or not required by law. Electronically signed by: Graham Mckeon M.D. 06/25/2020 9:04 PM
--- NOTE | 2020-06-25 21:35 | Ultrasound Report ---
ULTRASOUND ANKLE BRACHIAL INDICES CLINICAL HISTORY: Right foot pain and swelling. FINDINGS: Ankle brachial indices are performed in ultrasound. Right brachial pressure measures 129. P ressures in the right posterior tibial artery measure 144 for an RINA of 1.12, and pressures in the ri ght dorsalis pedis measure 157 for an RINA of 1.22. Pressures in the left posterior tibial artery amanda ure 140 for an RINA of 1.09, and pressures in the left dorsalis pedis measure 130 for an RINA of 1.01. IMPRESSION: Ankle-brachial indices as above. Electronically signed by: Graham Mckeon M.D. 06/25/2020 9:34 PM
[2020-06-25] MEDS ORDERED: HYDROmorphone INJ 1 MG/ML SYRINGE IV STA (21:36)
[2020-06-25] MEDS ORDERED: LORazepam 1 MG/2 ML VIAL IV STA (23:16)
--- NOTE | 2020-06-26 00:45 | History & Physical Report ---
Date of Service June 26, 2020 Assessment & Plan (1) Edema of right foot: 29-year-old female with past medical history migraines and mild intermittent asthma who was admitted with bilateral feet swelling, redness and pain, worse on the right. Pain, Swelling and Redness in feet, bilateral -Pt states that she has had ongoing pain, swelling and redness in her feet since April -Has seen rheumatology, and states they excluded Lupus and RA. Ordered MRI that she could not complete due to pain -No definitive diagnosis yet -WBC elevated, lactate elevated on admission, hypokalemic, EKG with sinus tach -Ankle brachial index ordered by ED, Blood Cx x2 pending -suspect more inflammatory process rather than infectious -MRI of right foot ordered tonight -ordered serum uric acid, antistreptolysin O levels, peripheral smear- all currently pending -Received Morphine 6mg, morphine 8mg, Dilaudid 1mg, Toradol 15mg, Tylenol 1000mg , Ativan 1mg, Decadron 10mg in the ED -will continue with Toradol 15mg q6h and morphine 2mg q3h for pain. -Consider pain management consult Hypokalemia -replete as needed Elevated total bilirubin -elevated t bili of 1.2 -will repeat with AM labs -consider further workup if persistently elevated. FEN/GI: Regular Diet CODE STATUS: Full code DVT prophylaxis: Lovenox SQ Dispo: Med/Surg (2) Acute pain of right foot: History of Present Illness Primary Care Provider: Avelino Nolan Pt is a 29-year-old female with past medical history migraines and mild intermittent asthma who was admitted with bilateral feet swelling, redness and pain, worse on the right. Of note, pt was very lethargic while obtaining the history due to the pain medications she had received. She states that she has been to this hospital multiple times since April for pain, swelling and redness in her feet bi laterally. She did have a followup with rheumatology as advised at her last visit who she states ruled out RA and lupus, and ordered an MRI that she could not complete due to her pain. States the pain is on the soles of her feet as well and prevents her from ambulating without help. States she uses crutches to get around. ALso has some intermittent swelling in her hands as well. Denies any numbness and tingling in the lower extremities currently. Her pain was 10/10 on arrival today and decreased to 8/10 only after administration of Ativan. She states she has never smoked, uses alcohol socially, no recreational drug use. Lives at home with son and . 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 Allergies Allergy/AdvReac Type Severity Reaction Status Date / Time No Known Allergies Allergy Verified 06/25/20 20:04 Home Medications Home Medications Medication Instructions Recorded Confirmed Type [place] 3-6-9 1 cap PO HS 05/12/20 06/25/20 History 1 tab PO HS 05/12/20 06/25/20 History gabapentin 300 mg PO QAM #30 cap 06/08/20 06/25/20 Rx gabapentin 900 mg PO QPM 30 Days #45 tab 06/08/20 06/25/20 Rx trazodone 150 mg PO HS PRN 06/13/20 06/25/20 History acetaminophen [Tylenol Extra 1,000 mg PO DIRECTED PRN 06/25/20 06/25/20 History Strength] ibuprofen 400 mg PO DIRECTED PRN 06/25/20 06/25/20 History methylprednisolone 32 mg PO DAILY 06/25/20 06/25/20 History Past Med/Surg History Medical History Asthma Migraine Paresthesias Surgical History No significant past surgical history Family History Mother Depression Dyslipidemia Schizophrenia Hypothyroidism Father Diabetes Grandmother (Paternal) Uterine cancer Social History Smoking Status: Never smoker Hx Alcohol Use: Yes Alcohol type: beer, wine and hard liquor Alcohol Intake Frequency Comment: once a month or less. 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 Feels Safe at Home: Yes Safety Concerns: Feels Safe At This Time Assistive Devices: Crutches Review of Systems Constitutional: + fatigue; no fever, no chills, no sweats and no anorexia Eyes: no worsening vision Ear, Nose, Mouth, Throat: no nasal congestion and no sore throat Respiratory: no cough and no dyspnea on exertion Cardiovascular: + edema; no chest pain, no dyspnea on exertion and no palpitations Gastrointestinal: no nausea, no vomiting, no constipation, no diarrhea/loose stools and no blood in stools Genitourinary: no dysuria and no hematuria Musculoskeletal: + joint pain and + swelling; no back pain and no neck pain Integumentary: + erythema and + skin swelling; no rash Neurologic: + tingling and + numbness; no headache(s) and no confusion Psychiatric: no confusion Physical Exam Physical Exam: General: Lethargic, laying in bed Skin: Redness noted on feet bilaterally with swelling Psych: couldnt be determined Neuro: No gross deficits, sensation intact grossly on lower extremities bilaterally HEENT: NC/AT Chest: Nontender to palpation. CV: RRR, Normal s1, s2. No murmurs appreciated Resp: Breath sounds clear bilaterally, no increased effort of breathing. No crackles/rhonchi/rales. Abdomen: Soft, nontender, nondistended. No guarding. Extremities: Redness, warmth and swelling noted on feet. Results & Data Results & Data ([facility]) Vital Signs (Past 12 Hours) Vital Signs Temp Pulse Pulse Resp BP Pulse Ox 06/25/20 23:34 98 H 19 98 06/25/20 23:00 104 H 17 129/99 100 06/25/20 22:30 120 H 20 131/105 H 93 06/25/20 22:00 98 H 27 H 127/79 100 06/25/20 21:30 109 H 33 H 138/95 100 06/25/20 21:00 94 H 20 141/88 H 100 06/25/20 20:46 99 H 24 108/82 06/25/20 20:00 108 H 32 H 132/89 95 06/25/20 19:51 102 H 24 99 06/25/20 18:21 36.6 C 125 H 30 H 123/77 100 Supervising Physician Co-Signing Physician Notes Patient seen and examined, chart reviewed, case discussed with Dr. Sanders and I agree with her assessment and plan as documented above. Briefly, patient is a 29yo female presenting with 2 months of bilateral foot pain and swelling R>L. Patient is currently undergoing workup for this condition and has seen Rheumatology as well as Neuro. No definitive diagnosis established as of yet. She is complaining of pain in feet, burning in nature. Occasional pain in hands as well as stiffness. No recent illness, sick contacts or travel. No new medications or supplements. On exam patient is uncomfortable but in NAD Skin - warm, red tender skin of the plantar surface of feet bilaterally, redness and swelling of dorsum of foot as well HEENT - NC/AT, PERRL, anicteric, slightly dry MM Heart - +S1/S2, regular, tachycardic, no m/r/g Lungs - CTA Abd - +BS, soft, NT/ND Ext - as above Neuro - no gross neurological deficits Labs and images reviewed, significant for WBC=17.55, elevated ESR=22, Procalcitonin negative ABIs performed and normal Assessment/Plan - 2 months of bilateral foot pain, paresthesias, currently being worked up by Neuro and Rheumatology -Observation to medical floor -Etiology uncertain - ?infectious/inflammatory? rheumatological? ?vasoocclusive disease - thallassemia or SSA? Infection? -MRI, anti-streptolysin O, peripheral smear to assess for schistocytes or sickling, thallassemia -Pain control -Remainder of plan as above Resident Activity Tracking Resident Involvement: Resident Care Provided Care Provided: Adult [facility]
[2020-06-26] MEDS ORDERED: POTASSIUM CHLORIDE 20 MEQ TABCR PO STA (02:32)
[2020-06-26] MEDS ORDERED: MoRPHine SULFATE 2 MG/ML CARP IV PRN (02:32)
[2020-06-26] MEDS ORDERED: ONDANSETRON INJ 2 MG/ML 2 ML VIAL IV PRN (02:32)
[2020-06-26] MEDS ORDERED: traZODone HCL 50 MG TAB PO PRN (02:32)
[2020-06-26] MEDS ORDERED: ALUMINUM/MAGNESIUM/SIMETH (MAALOX MAX) 30 ML UDC PO PRN (02:32)
[2020-06-26 02:52] LABS: Hematocrit (blood only) 40.9 % (37-47); Hemoglobin 13.5 g/dL (12.0-16.0); Immature Granulocytes # (auto) 0.06 K/uL (0.00-0.02); Immature Granulocytes % (auto) 0.3 %; Lymphocytes # (auto) 1.27 K/uL (1.2-3.4); Lymphocytes % (auto) 7.2 %; Mean Corpuscular Hemoglobin 30.2 pg (25-34); Mean Corpuscular Volume 91.5 fL (80-100); Monocytes % (auto) 2.3 %; Neutrophils # (auto) 15.82 K/uL (1.4-6.5); Neutrophils % (auto) 90.2 %; Platelet Count 381 K/uL (130-400); RDW Coefficient of Variation 13.3 % (11.5-14.5); RDW Standard Deviation 44.3 fL (36.4-46.3); Red Blood Count 4.47 M/uL (4.2-5.4); White Blood Count 17.55 K/uL (4.8-10.8)
[2020-06-26 03:14] LABS: Albumin Globulin Ratio 0.9 (0.9-2); Albumin Level 3.6 gm/dl (3.4-5.0); Bilirubin,Total 1.4 mg/dl (0.2-1); Calcium 8.3 mg/dl (8.5-10.1); Est GFR (African American) 137.1; Est GFR (Non-African American) 118.3; Globulin 3.8 gm/dl (2.5-4.0); Potassium 4.1 mmol/L (3.5-5.1); Total Protein 7.4 gm/dl (6.4-8.2)
[2020-06-26 03:21] LABS: Anti Streptolysin O Screen Positive IU/ml (<200 IU/ml)
--- NOTE | 2020-06-26 03:41 | Billing Data ---
Date of Service June 26, 2020 Coding Level of Care Code 18971 OBS Care - Level 3
[2020-06-26] MEDS: KETOROLAC TROMETHAMINE 15 MG/ML VIAL IV PRN ×3 (03:47→21:29)
[2020-06-26] MEDS ORDERED: GADOBUTROL 65ML VIAL IV ONE (06:10)
[2020-06-26] MEDS: ACETAMINOPHEN 500 MG TAB PO SCH ×4 (06:18→21:30)
--- NOTE | 2020-06-26 07:45 | Magnetic Resonance Report ---
MR foot RT wo/w con HISTORY: Right ankle and right foot swelling, redness and pain TECHNIQUE: Multiplanar multisequence MRI of the right forefoot was performed both before and after th e intravenous administration of 60 cc of Gadavist contrast. COMPARISON STUDY: None. FINDINGS: Mild marrow edema with within the distal phalanges of the toes at decreased T1 signal withi n the distal esteban of the first and second toe. No erosive changes identified. There is diffuse subcu taneous edema within the dorsum of the forefoot. There is mild enhancement and skin thickening within the subcutaneous fat. This could be due to a cellulitis. No fracture or dislocation. No loculated fl uid collections to suggest an abscess. The flexor and extensor tendons are intact. IMPRESSION: 1. Mild marrow edema within the distal phalanges of the toes with decreased T1 signal within the dist al tuft of the first and second toe. No erosive changes identified. This is indeterminate but unlikel y to represent osteomyelitis. A developing acro osteolysis or bone contusions would be in the differe ntial diagnosis. 2. No fracture or dislocation. 3. Diffuse subcutaneous edema within the dorsum of the foot with mild enhancement. This could represe nt a mild cellulitis. ACT 112: Negative or not required by law. Electronically signed by: Frankie Alejandro M.D. 06/26/2020 7:44 AM
--- NOTE | 2020-06-26 07:55 | Magnetic Resonance Report ---
MR ankle RT wo/w con HISTORY: Right ankle and foot pain, swelling TECHNIQUE: Multiplanar multisequence MRI of the right ankle was performed both before and after the i ntravenous administration of 6 cc of Gadavist contrast. COMPARISON STUDY: None. FINDINGS: No fracture or dislocation within the right ankle. Normal marrow signal intensity seen thro ughout the visualized osseous structures. Trace effusion at the tibiotalar joint. Diffuse subcutaneou s edema with mild subjacent enhancement. This could represent a cellulitis. The cartilage spaces are maintained. The flexor, extensor, peroneal, Achilles tendons are normal in course, caliber, and signa l intensity. The medial and lateral stabilizing ligaments are intact. No erosive changes identified. IMPRESSION: 1. Diffuse subcutaneous edema within the right ankle with mild enhancement of the subcutaneous fat. T his may represent a mild cellulitis. 2. No underlying bony abnormality. 3. Trace tibiotalar joint effusion. ACT 112: Negative or not required by law. Electronically signed by: Frankie Alejandro M.D. 06/26/2020 7:54 AM
[2020-06-26] MEDS ORDERED: INFLUENZA VIRUS QUAD VACCINE 0.5 ML SYR IM ONE (08:00)
[2020-06-26] MEDS ORDERED: INFLUENZA ADMINISTRATION CHARGE ONE (08:00)
[2020-06-26] MEDS ORDERED: HYDROmorphone INJ 0.5 MG/0.5 ML SYR IV STA (08:39)
[2020-06-26] MEDS: ENOXAPARIN INJ 40 MG/0.4 ML SYR SQ SCH (08:42)
[2020-06-26] MEDS: GABAPENTIN 300 MG CAP PO SCH ×3 (08:55→20:35)
[2020-06-26] MEDS ORDERED: GABAPENTIN 300 MG CAP PO SCH (09:00)
--- NOTE | 2020-06-26 10:15 | Pain Management Consultation ---
Date of Consultation June 26, 2020 Assessment & Plan (1) Acute pain of right foot: Present on Admission?: Yes (2) Edema of right foot: Present on Admission?: Yes (3) Intractable pain: * Patient with 2-month history of foot pain and edema with recent increase of unknown etiology. Consider further consultation with ID versus rheumatology * Will plan for bone scan of the right foot due to abnormal findings of imaging * Will discontinue morphine and initiate IV hydromorphone 0.5 mg every 2 hours as needed for breakthrough pain to assess efficacy/tolerability * Will titrate gabapentin to 300 mg twice daily and 900 mg nightly * Will discontinue trazodone and initiate amitriptyline 50 mg nightly * Patient may utilize ice bath per hospitalist team * Will continue to follow Present on Admission?: Yes History of Present Illness Reason for Consultation: Intractable bilateral foot pain right greater than left with edema Requesting Physician: Cassi Walsh DO Attending Physician: Nancy Gonzalez MD History of Present Illness Mrs. Mix is a 29-year-old female with a 2-month history of pain, swelling, redness and warmth of her feet bilaterally right greater than left- sided of unknown etiology. Patient was admitted due to intractable pain in the feet right greater than left-sided. She has had extensive neurologic and rheumatologic evaluation over the past few months with uncertain etiology of her presenting pain, swelling, redness and warmth of the right greater than left foot complaint. She describes burning, [id number] and an intense pressure sensation involving the feet bilaterally. The symptoms initially involved all of the toes of both feet and has since involved the plantar surface of the foot over the past few weeks. She reports rare pain which will radiate from the low back down the leg right greater left-sided which is random occurring less than 1 time per week. She denies any axial low back pain or overt radicular pain complaints. Patient is rating her pain at a 7-9/10. She reports the only relie f she was experiencing at home was to place her foot in an ice bath. She has utilized multiple analgesic regimens during her admissions with minimal sustained improvement. She utilized morphine approximately 1 hour ago without relief of her pain. Patient reports travel to [facility] within the past 8 months. She otherwise has no recent travel. She denies any known tick attachments or insect bites or unusual rashes. She denies fevers, chills or night sweats. She did undergo imaging of the ankle and foot earlier today. Patient has been on steroid therapy over the past 1 month without improvement in complaints. The patient has been reporting difficulty ambulating due to the discomfort. She has been utilizing crutches to ambulate. She denies family history of rheumatologic disorders. She does report history of osteoarthritis. 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 She denies any recreational IV drug use. She denies history of sore throat over the past 2 months. Patient has no further constitutional complaints. Plan of care discussed with Dr. Gillespie. Pain Assessment Full Body Front + Back: 1. Bilateral feet-nondermatomal Pain scale - at its best (0-10): 7 Pain scale - at its worst (0-10): 9 Allergies Allergy/AdvReac Type Severity Reaction Status Date / Time No Known Allergies Allergy Verified 06/25/20 20:04 Home Medications Home Medications Medication Instructions Recorded Confirmed Type [place] 3-6-9 1 cap PO HS 05/12/20 06/25/20 History 1 tab PO HS 05/12/20 06/25/20 History gabapentin 300 mg PO QAM #30 cap 06/08/20 06/25/20 Rx gabapentin 900 mg PO QPM 30 Days #45 tab 06/08/20 06/25/20 Rx trazodone 150 mg PO HS PRN 06/13/20 06/25/20 History acetaminophen [Tylenol Extra 1,000 mg PO DIRECTED PRN 06/25/20 06/25/20 History Strength] ibuprofen 400 mg PO DIRECTED PRN 06/25/20 06/25/20 History methylprednisolone 32 mg PO DAILY 06/25/20 06/25/20 History Pain History Pain Intensity Pain scale - at its best (0-10): 7 Pain scale - at its worst (0-10): 9 Patient History Medical History Asthma Migraine Paresthesias Surgical History No significant past surgical history Family History Mother Depression Dyslipidemia Schizophrenia Hypothyroidism Father Diabetes Grandmother (Paternal) Uterine cancer Social History Smoking Status: Never smoker Hx Alcohol Use: Yes Alcohol type: beer, wine and hard liquor Alcohol Intake Frequency Comment: once a month or less. 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 Feels Safe at Home: Yes Safety Concerns: Feels Safe At This Time Assistive Devices: Crutches Physical Exam Physical Exam: General: Patient sitting quietly in exam room in no acute distress. Speech and thought process appropriate. Mood and affect appropriate. Cognition intact. Patient intermittently weepy throughout the visit due to the discomfort and frustration of lack of diagnosis. Head: Normocephalic and atraumatic. ENT: No evidence of nasal or oral mucosal lesions. Mucous membranes are moist. Eyes: Pupils equal round reactive to light. Neck: Supple without adenopathy and full range of motion. Chest: Nontender to palpation of the costosternal junction. Abdomen: Soft and nondistended. No organomegaly. Bowel sounds active. Lower extremities: Patient has visible edema involving the right foot which is generalized and involving the toes. Patient has evidence of hyperpathia over the entire right foot and minimally over the left distal toes predominantly the great toe. No evidence of allodynia. Slight warmth to touch of the right foot when compared to the left. There is no evidence of skin breakdown. Any palpation of the right pretibial region increased pain in the right foot. There is no edema of the ankle or pretibial regions bilaterally. Patient unwilling to participate in strength testing. Neurologic: Cranial nerves grossly intact. Ambulatory function not witnessed.
--- NOTE | 2020-06-26 10:50 | Hospitalist Progress Note ---
Date of Service June 26, 2020 Assessment & Plan (1) Edema of right foot: 29-year-old female with past medical history migraines and mild intermittent asthma who was admitted with bilateral feet swelling, redness and pain, worse on the right. Pain, Swelling and Redness in feet, bilateral R>L: - Pt states that she has had ongoing pain, swelling and redness in her feet since April. - WBC elevated, lactate elevated on admission, but lactate resolved with fluids. WBC elevation likely 2/2 steroids. - Spoke with patient's Director Of Direct Marketing who has evaluated as follows: - No findings suggestive of RA, Lupus on labwork. - Findings similar to erythromelalgia, however pain and swelling come and go rather than being constant which is less consistent with erythromelalgia. - Seronegative polymyalgia rheumatica (RS3PE) possible however patient unresponsive to steroid therapy so this diagnosis is less likely. - MRI foot not suggestive of arthritic process. - Fluid in joint space unlikely to be drainable for testing due to trace amount. - Would recommend tapering off of steroids as they appear to not benefit the patient. - Unclear if this is a Rheumatologic process. -Ankle brachial index in ED normal. - MRI foot/ankle showed: - 1. Mild marrow edema within the distal phalanges of the toes with decreased T1 signal within the distal tuft of the first and second toe. No erosive changes identified. This is indeterminate but unlikely to represent osteomyelitis. A developing acro osteolysis or bone contusions would be in the differential diagnosis. No fracture or dislocation. Diffuse subcutaneous edema within the dorsum of the foot with mild enhancement. This could represent a mild cellulitis. - Bone scan showed mild increased activity involving the distal phalanx of the great toe of the right foot, corresponding to the area of marrow edema described on the recent MRI. - Peripheral smear without findings suggestive of hematologic process, and leukocytosis likely reactive. - Serum uric acid normal. - Antistreptolysin O Ab positive, titer 200; patient does not recall strep-like symptoms prior to foot swelling and pain. - Pain management consult placed given severe intractable pain: - Hydromorphone 0.5mg q2h for breakthrough pain. - Otherwise tylenol and toradol prn pain. - High on differential is Complex Regional Pain Syndrome, as patient's workup to date has been negative. - Will schedule patient for expeditious Neurology follow up for EMG and small fiber nerve biopsy, as patient was scheduled for Neurology follow up prior to readmission. - Small fiber nerve biopsy performed in [place]. - Last admission patient had extensive Neurologic workup including CSF studies, EMG and nerve conduction studies were unremarkable for any obvious polyneuropathy or myopathy on May 21. - There are no upper motor neuron signs, meningeal signs, or encephalopathy, and patient has brisk reflexes. - Tick-borne illness testing negative. Hypokalemia: - Replete as needed. Elevated total bilirubin: - Elevated total bili of 1.2, with repeat 1.4. - LFTs, ALk Phos normal. Direct bilirubin 0.2. No jaundice. FEN/GI: Regular Diet CODE STATUS: Full code DVT prophylaxis: Lovenox SQ Dispo: Med/Surg (2) Acute pain of right foot: Admission and Anticipated Discharge Date Admission Date: June 26, 2020 Supervising Physician Co-Signing Physician Notes Resident Physician Supervision Note: I independently interviewed and examined the patient and verified the piña history and physical, reviewed labs and image studies, discussed the case with the resident Dr. Coppola and agree with the findings and care plan. Subjective Patient complains of significant pain this morning. Has feet in cold water basin, which she reports relieves her pain some. On further questioning patient reports that she went to [facility] one year ago and was bitten by many mosquitoes. She states that since her discharge a few weeks ago from the hospital that she has had the same pain as when she left, and has underwent continued evaluation by Sports Medicine and Rheumatology. Workup thus far has been negative. She was to have an MRI foot in outpatient setting but did not tolerate the procedure well due to pain. States that the pain feels like "the flesh coming off of the bones" and that it has "stopped her quality of life". Denies fevers or chills, nausea or vomiting, diarrhea or constipation, chest pain or shortness of breath. Right foot more painful than left, specifically on the toes and the bottom of her foot. Pain is worse to touch. Feels like a burning sensation. Review of Systems Review of Systems: All systems reviewed & are unremarkable except as noted in HPI & below Constitutional: no fever, no chills and no malaise Respiratory: no cough and no dyspnea Cardiovascular: + edema (bilateral feet R>L); no chest pain and no palpitations Gastrointestinal: no abdominal pain, no constipation and no diarrhea/loose stools Genitourinary: no dysuria and no hematuria Physical Exam Constitutional: WD/WN, vitals as above Eyes: PERRL, conjunctivae normal, anicteric sclerae ENMT: external ear and nose normal, oropharynx normal Neck: normal visual inspection Respiratory: normal respiratory effort, lungs clear to auscultation Cardiovascular: Rate/Rhythm: regular rate and regular rhythm Heart Sounds: no murmur Extremities: + edema (right foot, left foot toes) Gastrointestinal (Abdomen): normal bowel sounds, soft, nontender, no hepatosplenomegaly Skin: No rashes Skin over right dorsal and plantar foot is erythematous, and edematous. Tender to the touch. LLE toes are tender and swollen, but significantly decreased as compared to RLE Neurologic: moves all extremities; no focal motor deficits Patient is tremulous when touched on the feet Psychiatric: Orientation: alert and oriented x 3 Affect: euthymic affect weepy throughout interview regarding pain Results & Data Results & Data ([facility]) Vital Signs (Past 12 Hours) Vital Signs Temp Pulse Pulse Resp BP BP BP 06/26/20 07:00 36.4 C L 18 107/72 06/26/20 02:39 36.7 C 113 H 14 123/67 06/26/20 02:00 107 H 16 131/88 06/26/20 01:30 102 H 16 134/84 06/26/20 01:00 96 H 13 136/82 06/26/20 00:52 101 H 16 129/77 06/26/20 00:30 122 H 22 06/26/20 00:00 104 H 15 06/25/20 23:34 98 H 19 06/25/20 23:00 104 H 17 129/99 Pulse Ox 06/26/20 07:00 98 06/26/20 02:39 99 06/26/20 02:00 98 06/26/20 01:30 98 06/26/20 01:00 99 06/26/20 00:52 99 06/26/20 00:30 98 06/26/20 00:00 95 06/25/20 23:34 98 06/25/20 23:00 100 Resident Activity Tracking Resident Involvement: Resident Care Provided Care Provided: Adult [facility]
--- NOTE | 2020-06-26 11:56 | Electrocardiogram Report ---
Test Reason : Blood Pressure : / mmHG Vent. Rate : 107 BPM Atrial Rate : 107 BPM P-R Int : 150 ms QRS Dur : 068 ms QT Int : 348 ms P-R-T Axes : 061 032 058 degrees QTc Int : 464 ms Poor data quality, interpretation may be adversely affected Sinus tachycardia Possible Left atrial enlargement Borderline ECG No previous ECGs available Confirmed by Tung Munoz ([id number]) on 06/26/2020 11:56:02 AM Referred By: REFERRED SELF Confirmed By:Tung Munoz
[2020-06-26 12:42] LABS: Appearance Urine Clear (Clear); Bilirubin Urine Negative (Negative); Blood Urine Negative (Negative); Color Urine Yellow; Glucose Urine UA Negative (Negative); Ketones Urine Trace (Negative); Leukocyte Esterase Urine Negative (Negative); Nitrite Urine Negative (Negative); Protein Urine Negative (Negative); Specific Gravity Urine 1.029 (1.000-1.030); Urobilinogen Urine Negative (Negative)
[2020-06-26] MEDS: HYDROmorphone INJ 0.5 MG/0.5 ML SYR IV PRN ×4 (13:54→20:32)
--- NOTE | 2020-06-26 15:57 | Nuclear Medicine Report ---
NM bone scan limited area CLINICAL HISTORY: Intractable right foot pain. Abnormal MRI. COMPARISON STUDY: MRI study dated 06/26/2020 FINDINGS: Patient was injected with 27.5 mCi of technetium 99m MDP. Three-hour delayed images of both feet were acquired. There is mild increased activity involving the distal phalanx of the great toe the right foot corresp onding to the area of marrow edema described on the MRI. Correlation with conventional radiographs mi ght be of benefit in follow-up. Skeletal uptake is otherwise felt to be within normal limits. IMPRESSION: 1. Mild increased activity involving the distal phalanx of the great toe of the right foot, correspon ding to the area of marrow edema described on the recent MRI. Correlation with conventional radiograp hs of the right foot might be considered in follow-up ACT 112: Negative or not required by law. Electronically signed by: Antonio Norwood M.D. 06/26/2020 3:55 PM
[2020-06-26] MEDS: LIDOCAINE 5% 1 PATCH TD SCH (18:38)
[2020-06-26] MEDS: AMITRIPTYLINE HCL 50 MG TAB PO SCH (20:36)
[2020-06-26] MEDS: PRENATAL VITAMIN 1 TAB PO SCH (20:36)
[2020-06-26] MEDS: POLYETHYLENE (MIRALAX) 17 GM PACK PO PRN (20:52)
[2020-06-27] MEDS: HYDROmorphone INJ 0.5 MG/0.5 ML SYR IV PRN ×2 (03:36→06:37)
[2020-06-27] MEDS: ACETAMINOPHEN 500 MG TAB PO SCH ×3 (05:36→20:58)
[2020-06-27 06:48] LABS: Basophils # (auto) 0.01 K/uL (0-0.2); Basophils % (auto) 0.1 %; Eosinophils # (auto) 0.03 K/uL (0-0.5); Eosinophils % (auto) 0.2 %; Hematocrit (blood only) 40.4 % (37-47); Hemoglobin 13.5 g/dL (12.0-16.0); Immature Granulocytes # (auto) 0.06 K/uL (0.00-0.02); Immature Granulocytes % (auto) 0.4 %; Lymphocytes # (auto) 4.74 K/uL (1.2-3.4); Lymphocytes % (auto) 35.1 %; Mean Corpuscular Hemoglobin 30.3 pg (25-34); Mean Corpuscular Hgb Conc 33.4 g/dL (32-36); Mean Corpuscular Volume 90.8 fL (80-100); Mean Platelet Volume 9.2 fL (7.4-10.4); Monocytes % (auto) 9.6 %; Neutrophils # (auto) 7.37 K/uL (1.4-6.5); Neutrophils % (auto) 54.6 %; Platelet Count 362 K/uL (130-400); RDW Coefficient of Variation 13.3 % (11.5-14.5); RDW Standard Deviation 43.9 fL (36.4-46.3); Red Blood Count 4.45 M/uL (4.2-5.4); White Blood Count 13.51 K/uL (4.8-10.8)
[2020-06-27] MEDS ORDERED: DICLOFENAC SOD 1% GEL 100 GM TUBE EXT SCH (08:15)
[2020-06-27] MEDS ORDERED: GADOBUTROL 65ML VIAL IV ONE (09:06)
--- NOTE | 2020-06-27 09:18 | Pain Management Progress Note ---
Date of Service June 27, 2020 Assessment & Plan (1) Acute pain of right foot: (2) Edema of right foot: (3) Intractable pain: * Bone scan reviewed which revealed mild increased activity involving the distal phalanx of the great toe on the right foot corresponding to the area of marrow edema on the recent MRI. Given persistent ongoing lack of diagnosis will consider triple phase bone scan. Consider Ortho consultation regarding MRI/bone scan findings. RSD/CRPS is potential working diagnosis given lack of identifiable etiology of presenting complaints although is not typical presentation given that the patient is seeking cool water bath to improve complaints. This was discussed at length with the patient. Will attempt to obtain photo of foot during this admission for documentation purposes should we consider pursuing sympathetic block for comparative purposes. We did discuss management and treatment options. Patient would be considered a potential candidate for lumbar sympathetic block. * Patient will maintain amitriptyline 50 mg nightly * Will add duloxetine 30 mg every morning * Encouraged limited utilization of IV hydromorphone due to lack of perceived efficacy * Will add Nucynta 50 mg every 4 hours as needed for breakthrough pain to assess efficacy/tolerability * Patient may continue with ice bath for feet as needed Present on Admission?: Yes Admission and Anticipated Discharge Date Admission Date: June 26, 2020 Subjective Patient reporting persisting pain and swelling of the right greater than left foot. Patient continues to describe swelling, redness and warmth with significant pain which she describes as sharp and intense pressure sensation ranging between a 7-9/10. She reported minimal relief from IV hydromorphone which is contributing to sedation. She did sleep for a few hours last evening with resumption of amitriptyline without notable side effects. Patient indicates that the pain remains isolated to the right greater than left foot without a radicular or radiating component. Extensive work-up has been unable to provide obvious etiology at this point. She continues to find relief from an ice bath. Patient is concerned about her ability to return home and take care of her child. She continues to have difficulty with ambulatory activity due to the pain and discomfort. There has been no significant international exchange coordinator the past 24 hours with the frequency and/or severity of her pain with ongoing characteristics of burning and [id number]. She continues to deny any known injury even an innocuous injury. Steroids are currently being reduced due to lack of response per hospitalist team. Patient has no further constitutional complaints. Plan of care discussed with Dr. Mya Black. Pain Assessment Pain Assessment Full Body Front + Back: 1. Right greater than left foot 2. Right greater than left foot Pain scale - at its best (0-10): 7 Pain scale - at its worst (0-10): 9 Physical Exam Physical Exam: General: Patient sitting quietly in exam room in no acute distress. Speech and thought process appropriate. Mood and affect appropriate. Cognition intact. Lower extremities: Patient has visible edema involving the right foot which is generalized and involving the toes. Patient has evidence of hyperpathia over th e entire right foot and minimally over the left distal toes predominantly the great toe. No evidence of allodynia. Slight warmth to touch of the right foot when compared to the left. There is no evidence of skin breakdown. Any palpation of the right pretibial region increased pain in the right foot. There is no edema of the ankle or pretibial regions bilaterally. Patient unwilling to participate in strength testing. Patient was witnessed with significant pain upon entering the room and then placing her feet in an ice bath which significantly reduce the severity of her pain and improved her ability to communicate. Neurologic: Cranial nerves grossly intact. Ambulatory function not witnessed. Results (Pain [facility]) Diagnostic Review Other Findings: [facility] [place], [place] [phone] Nuclear Medicine Report Patient: DIAMANTE HERRERAAdmit Date: 06/26/20 MR#: [id number]: [address] Acct ID:[id number]: Date: 1990[facility] Zip: [place] [address] Age: 29Location: 2N Sex: FRoom[facility]Bed[facility] N2[facility] Att Phy: Nancy Gonzalez MDDiagnosis: FOOT PAIN AND SWELLING Ling Phy: Avelino Nolan M.D.Service Date: 06/26/20 Fam Phy:Interpreting Phy: Antonio Norwood MD Admit Phy: Mona Sanders MD Ordering Phy: Juan Jarrell PA-C cc: ~ NM bone scan limited area CLINICAL HISTORY: Intractable right foot pain. Abnormal MRI. COMPARISON STUDY: MRI study dated 06/26/2020 FINDINGS: Patient was injected with 27.5 mCi of technetium 99m MDP. Three-hour delayed images of both feet were acquired. There is mild increased activity involving the distal phalanx of the great toe the right foot corresponding to the area of marrow edema described on the MRI. Correlation with conventional radiographs might be of benefit in follow-up. Skeletal uptake is otherwise felt to be within normal limits. IMPRESSION: 1. Mild increased activity involving the distal phalanx of the great toe of the right foot, corresponding to the area of marrow edema described on the recent MRI. Correlation with conventional radiographs of the right foot might be considered in follow-up ACT 112: Negative or not required by law. Electronically signed by: Antonio Norwood M.D. 06/26/2020 3:55 PM Dictated: 06/26/20 1550 Transcribed: 06/26/20 1550
[2020-06-27] MEDS: ENOXAPARIN INJ 40 MG/0.4 ML SYR SQ SCH (09:26)
--- NOTE | 2020-06-27 09:41 | Magnetic Resonance Report ---
MRI OF THE LUMBAR SPINE WITH AND WITHOUT CONTRAST CLINICAL HISTORY: radicular pain, burning sensation LE COMPARISON STUDY: No previous studies for comparison. TECHNIQUE: Utilizing a 1.5 Priya magnet and dedicated coil, multiplanar, multiecho imaging of the michel mbar spine was performed before and after uneventful IV administration of 6 mL of Gadavist. FINDINGS: For purposes of numbering on this exam, the L5-S1 disc space is assigned to axial image 23 of 25. Ali gnment of the lumbar spine is anatomic. Vertebral body heights are maintained. There is no intracanal icular mass or fluid collection. The conus terminates at the mid L1 level. There is no abnormal enhan cement within the lumbar canal. Paravertebral soft tissues are unremarkable. Incidental note is made of marked distention of the bladder. There is a fat-containing umbilical hernia. L1-2: The central canal and neural foramen are patent. L2-3: The central canal and neural foramen are patent. L3-4: The central canal and neural foramen are patent. L4-5: The central canal and neural foramen are patent. L5-S1: There is slight disc space narrowing with minimal disc bulge. The central canal and neural for amen are patent. There is mild facet arthrosis. IMPRESSION: 1. Minimal degenerative disc disease and facet arthrosis at L5-S1. Slight disc bulge. Patent central canal and neural foramen. Otherwise, unremarkable MRI of the lumbar spine. 2. Markedly distended bladder. 3. Fat-containing umbilical hernia. ACT 112: Negative or not required by law. Electronically signed by: Robbi Lucero M.D. 06/27/2020 9:39 AM
[2020-06-27] MEDS: TAPENTADOL HCL 50 MG TAB PO PRN (09:49)
[2020-06-27] MEDS: predniSONE 10 MG TABLET PO SCH (09:50)
[2020-06-27] MEDS: ASPIRIN 325 MG ECTAB PO SCH (09:50)
[2020-06-27] MEDS: DICLOFENAC SOD 1% GEL 100 GM TUBE EXT SCH ×3 (09:51→20:55)
[2020-06-27] MEDS: GABAPENTIN 300 MG CAP PO SCH ×3 (09:51→20:56)
[2020-06-27] MEDS: DULoxetine HCL 30 MG CAP PO SCH (10:42)
--- NOTE | 2020-06-27 11:42 | Hospitalist Progress Note ---
Date of Service June 27, 2020 Assessment & Plan (1) Edema of right foot: 29 yo F PMHx migraines and mild intermittent asthma who was admitted with bilateral feet swelling, redness and intractable pain, worse on the right. Pain, Swelling and Redness in feet, bilateral R>L: - Pt states that she has had ongoing pain, swelling and redness in her feet since April. - WBC elevated, lactate elevated on admission, but lactate resolved with fluidsand WBC trending down. - Spoke with patient's Rn Midwife who has evaluated and has recommendations as follows: - No findings suggestive of RA, Lupus on labwork. - Findings similar to erythromelalgia, however pain has been fairly consistent which is atypical. Pain and swelling was initially in hands, now in feet. - Have started on aspirin 325mg, continue Cymbalta and amitriptyline. - Seronegative polymyalgia rheumatica (RS3PE) possible however patient unresponsive to steroid therapy so this diagnosis is less likely. - MRI foot not suggestive of arthritic process. Some bone marrow edema in foot; unclear correlation with symptoms. - Fluid in joint space unlikely to be drainable for testing due to trace amount. - Today transitioned methylpred -> 30mg prednisone daily, and will continue to taper her dose. - Peripheral smear without findings suggestive of hematologic process, and leukocytosis likely reactive. - Serum uric acid normal. - Antistreptolysin O Ab positive, titer 200; patient does not recall strep-like symptoms prior to foot swelling and pain. - Ankle brachial index in ED normal. - MRI foot/ankle showed: - 1. Mild marrow edema within the distal phalanges of the toes with decreased T1 signal within the distal tuft of the first and second toe. No erosive changes identified. This is indeterminate but unlikely to represent osteomyelitis. A developing acroosteolysis or bone contusions would be in the differential diagnosis. No fracture or dislocation. Diffuse subcutaneous edema within the dorsum of the foot with mild enhancement. This could represent a mild cellulitis. - Bone scan showed mild increased activity involving the distal phalanx of the great toe of the right foot, corresponding to the area of marrow edema described on the recent MRI. - Orthopedic Surgery consulted given findings on MRI/bone scan; at request of Pain Management prior to considering lumbar sympathetic block. Neurology workup last admission as follows: - Last admission patient had extensive Neurologic workup including CSF studies, EMG and nerve conduction studies were unremarkable for any obvious polyneuropathy or myopathy on May 21. - There are no upper motor neuron signs, meningeal signs, or encephalopathy, and patient has brisk reflexes. - Tick-borne illness testing negative. - Will schedule patient for expeditious Neurology follow up for EMG and small fiber nerve biopsy, as patient was scheduled for Neurology follow up prior to readmission. - Small fiber nerve biopsies are performed in [facility] office. - High on differential is Complex Regional Pain Syndrome, as well as eryt hromelalgia, as patient's workup to date has been negative. - Pain management consult placed given severe intractable pain: - Hydromorphone 0.5mg q2h for breakthrough pain, though this does not seem to be helpful for the patient. Will try Nucynta q4h prn. - Otherwise tylenol, lidocaine, voltaren gel, cold water baths. - Amitriptyline and Cymbalta daily. - Consider lumbar sympathetic block if extensive evaluation is negative for clear cause. - PT/OT orders placed. Hypokalemia: - Replete as needed. Elevated total bilirubin: - Elevated total bili of 1.2, with repeat 1.4. - LFTs, ALk Phos normal. Direct bilirubin 0.2. No jaundice. FEN/GI: Regular Diet CODE STATUS: Full code DVT prophylaxis: Lovenox SQ Dispo: Med/Surg Admission and Anticipated Discharge Date Admission Date: June 26, 2020 Supervising Physician Co-Signing Physician Notes Resident Physician Supervision Note: I independently interviewed and examined the patient and verified the piña history and physical, reviewed labs and image studies, discussed the case with the resident Dr. Coppola and agree with the findings and care plan. Subjective Patient without acute events overnight. Pain was 7-9/10 overnight despite IV o piate medications, benefitted some by lidocaine patches and cold water baths. States this morning that she cannot weight bear on right foot due to pain/sensation on sole of foot. Last itme she walked was 3 days ago prior to admission. Denies fevers or chills, nausea, chest pain or shortness of breath, abdominal pain. Review of Systems Review of Systems: All systems reviewed & are unremarkable except as noted in HPI & below Constitutional: no fever, no chills and no malaise Respiratory: no cough and no dyspnea Cardiovascular: + edema (bilateral feet R>L); no chest pain and no palpitations Gastrointestinal: no abdominal pain, no constipation and no diarrhea/loose stools Genitourinary: no dysuria and no hematuria Physical Exam Constitutional: WD/WN, vitals as above Eyes: PERRL, conjunctivae normal, anicteric sclerae ENMT: external ear and nose normal, oropharynx normal Neck: normal visual inspection Respiratory: normal respiratory effort, lungs clear to auscultation Cardiovascular: Rate/Rhythm: regular rate and regular rhythm Heart Sounds: no murmur Extremities: + edema (right foot, left foot toes) Gastrointestinal (Abdomen): normal bowel sounds, soft, nontender, no hepatosplenomegaly Skin: No rashes Skin over right dorsal and plantar foot is erythematous, and edematous. Exquisitely tender to the touch. LLE toes are tender and swollen, but significantly decreased as compared to RLE Neurologic: moves all extremities; no focal motor deficits Patient is tremulous when touched on the feet Psychiatric: Orientation: alert and oriented x 3 Affect: euthymic affect weepy throughout interview regarding pain Results & Data Results & Data ([facility]) Vital Signs (Past 12 Hours) Vital Signs Temp Pulse Resp BP Pulse Ox 06/27/20 08:00 36.9 C 93 H 16 116/77 100 Resident Activity Tracking Resident Involvement: Resident Care Provided Care Provided: Adult Hospital Medicine
[2020-06-27] MEDS: LIDOCAINE 5% 1 PATCH TD SCH (17:42)
[2020-06-27] MEDS: AMITRIPTYLINE HCL 50 MG TAB PO SCH (20:55)
[2020-06-27] MEDS: PRENATAL VITAMIN 1 TAB PO SCH (20:56)
[2020-06-27] MEDS: POLYETHYLENE (MIRALAX) 17 GM PACK PO PRN (21:16)
[2020-06-28] MEDS: TAPENTADOL HCL 50 MG TAB PO PRN ×4 (02:02→21:01)
[2020-06-28] MEDS: DICLOFENAC SOD 1% GEL 100 GM TUBE EXT SCH ×4 (04:04→20:55)
[2020-06-28] MEDS: ACETAMINOPHEN 500 MG TAB PO SCH ×3 (05:53→21:01)
[2020-06-28 06:24] LABS: Hematocrit (blood only) 40.5 % (37-47); Hemoglobin 13.2 g/dL (12.0-16.0); Mean Corpuscular Hgb Conc 32.6 g/dL (32-36); Mean Platelet Volume 9.2 fL (7.4-10.4); Platelet Count 365 K/uL (130-400); RDW Coefficient of Variation 13.3 % (11.5-14.5); RDW Standard Deviation 45.1 fL (36.4-46.3); White Blood Count 12.55 K/uL (4.8-10.8)
[2020-06-28 06:56] LABS: Basophils # (auto) 0.02 K/uL (0-0.2); Basophils % (auto) 0.2 %; Eosinophils # (auto) 0.07 K/uL (0-0.5); Eosinophils % (auto) 0.6 %; Immature Granulocytes # (auto) 0.05 K/uL (0.00-0.02); Immature Granulocytes % (auto) 0.4 %; Lymphocytes # (auto) 5.39 K/uL (1.2-3.4); Lymphocytes % (auto) 42.9 %; Monocytes # (auto) 1.25 K/uL (0.11-0.59); Neutrophils # (auto) 5.77 K/uL (1.4-6.5); Neutrophils % (auto) 45.9 %
[2020-06-28] MEDS: GABAPENTIN 300 MG CAP PO SCH ×3 (08:59→20:56)
[2020-06-28] MEDS: predniSONE 10 MG TABLET PO SCH (08:59)
[2020-06-28] MEDS: ASPIRIN 325 MG ECTAB PO SCH (08:59)
[2020-06-28] MEDS: ENOXAPARIN INJ 40 MG/0.4 ML SYR SQ SCH ×2 (08:59→11:38)
[2020-06-28] MEDS: DULoxetine HCL 30 MG CAP PO SCH (08:59)
--- NOTE | 2020-06-28 09:27 | Orthopedic Consultation ---
Date of Consultation June 28, 2020 Assessment & Plan (1) Acute pain of right foot: I went over all the radiology images personally with the radiologist. I discussed with him the clinical examination while we went over the images. Unfortunately, we were unable to draw any new conclusions. She definitely has some edema in the distal phalanx of her right great toe. This is definitely abnormal, however, it is not a fracture and there is no signs of osteomyelitis. There is a possibility of acroosteolysis, however, this is very rare in the foot. After discussions with the radiologist, we also agreed that there is no reason to proceed with a triple phase bone scan. Fortunately, after talking with the patient, she said that her left foot has actually gotten a little bit better over the past 6 weeks and her left foot used to be worse than her right foot is now. She is still unable to ambulate. At this point I think the diagnosis would be reflex sympathetic dystrophy and a sympathetic nerve block may be helpful. I do not see any surgical indications at this time. Present on Admission?: Yes History of Present Illness Reason for Consultation: Bilateral foot swelling with right worse than left Attending Physician: Nancy Gonzalez MD History of Present Illness Patient is a very pleasant 40-year-old female who has been complaining of a several month history of bilateral foot swelling and pain. It started with her left foot in late April. She denies any traumas. She came to the hospital and was diagnosed with possible cellulitis and given some antibiotics. She was also given some steroids. She had an extensive work-up including a full rheumatology work-up and a complete neurology work-up. Everything came back negative. Her left foot swelling began to go down a little bit. Unfortunate she then began having severe right foot pain and swelling. The swelling became worse and the pain got to the point where she was unable to ambulate. She came back to the hospital. X-rays were essentially negative. MRI of the foot showed some edema in the distal phalanx of the great toe. She had an MRI of her lumbar spine which was negative and a bone scan which showed a little bit of uptake in the distal phalanx of the great toe. She has been seen by pain management and the current diagnosis is possible reflex sympathetic dystrophy. They are thinking of doing a sympathetic nerve block, however, before they do nerve block they want an orthopedic consultation to make sure that nothing else was going on. Allergies Allergy/AdvReac Type Severity Reaction Status Date / Time No Known Allergies Allergy Verified 06/25/20 20:04 Home Medications Home Medications Medication Instructions Recorded Confirmed Type [place] 3-6-9 1 cap PO HS 05/12/20 06/25/20 History 1 tab PO HS 05/12/20 06/25/20 History gabapentin 300 mg PO QAM #30 cap 06/08/20 06/25/20 Rx gabapentin 900 mg PO QPM 30 Days #45 tab 06/08/20 06/25/20 Rx trazodone 150 mg PO HS PRN 06/13/20 06/25/20 History acetaminophen [Tylenol Extra 1,000 mg PO DIRECTED PRN 06/25/20 06/25/20 History Strength] ibuprofen 400 mg PO DIRECTED PRN 06/25/20 06/25/20 History methylprednisolone 32 mg PO DAILY 06/25/20 06/25/20 History Patient History Medical History Asthma Migraine Paresthesias Surgical History No significant past surgical history Family History Mother Depression Dyslipidemia Schizophrenia Hypothyroidism Father Diabetes Grandmother (Paternal) Uterine cancer Social History Smoking Status: Never smoker Hx Alcohol Use: Yes Alcohol type: beer, wine and hard liquor Alcohol Intake Frequency Comment: once a month or less. 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 Feels Safe at Home: Yes Safety Concerns: Feels Safe At This Time Assistive Devices: None Review of Systems Review of Systems: All systems reviewed & are unremarkable except as noted in HPI & below Physical Exam Constitutional: WD/WN, vitals as above Eyes: PERRL, conjunctivae normal, anicteric sclerae ENMT: external ear and nose normal, oropharynx normal Neck: trachea midline, no thyromegaly Respiratory: normal respiratory effort Cardiovascular: RRR, no murmur, no edema Gastrointestinal (Abdomen): normal bowel sounds, soft, nontender, no hepatosplenomegaly Musculoskeletal: On physical examination of the right foot, she has mild pain on the dorsum of the foot and more severe pain on the plantar aspect of the foot. Most of her pain is located at the MTP joints on the dorsal aspect. She does have diffuse swelling around the foot. It starts in the midfoot and goes to the forefoot. She does not have much pain in the ankle or the hindfoot. She has mild pain in the small toe and the fourth toe and more significant pain in the second and third toe and severe pain in the great toe. There are no abrasions, lesions, or lacerations of the skin. Psychiatric: A+Ox3, euthymic affect Results & Data ([facility]) Vital Signs (Past 12 Hours) Vital Signs Temp Pulse Resp BP Pulse Ox 06/28/20 07:00 36.9 C 88 18 122/86 99 06/27/20 23:54 36.8 C 71 18 120/81 99 Diagnostic Findings MRI of the right foot showed a little bit of edema within the dorsal subcutaneous tissue. There is a little bit of edema in the distal phalanx of the great toe. Otherwise the MRI is generally unremarkable. I do not see any signs of effusion or any significant arthritis. X-ray of the right foot was negative. MRI of the lumbar spine showed very minimal disc herniation at L5-S1 but no evidence of central or foraminal stenosis. PG Care Time/CCT Total # of Minutes Spent Total Time Spent with Patient: Total time spent is greater than 50% in coordination of care (as documented) at patient's floor/unit and/or counseling patient: Coding Level of Care Code 68443 Inpt Consult Level 4 Diagnoses Acute pain of right foot M79.671
[2020-06-28] MEDS: SENNA 8.6 MG TAB PO SCH (16:43)
--- NOTE | 2020-06-28 16:51 | Hospitalist Progress Note ---
Date of Service June 28, 2020 Assessment & Plan (1) Edema of right foot: 29 yo F admitted with bilateral feet swelling, redness and intractable pain, worse on the right. Patient with some improvement over course of last 24 hours: able to bear weight, burning sensation and erythema resolved. Orthopedics evaluated patient and have no suspicion for osteomyelitis or surgical intervention at this time. Differential at this time includes complex regional pain syndrome, reflex sympathetic dystrophy and erythromelalgia. Unable to reach pain management today regarding lumbar sympathetic block. Pain, Swelling and Redness in feet, bilateral R>L: - Ongoing pain, swelling and redness in her feet since April. - WBC elevated, lactate elevated on admission, but lactate resolved with fluids and WBC trending down. - Peripheral smear without findings suggestive of hematologic process, and ariel kocytosis likely reactive. - Serum uric acid normal. - Antistreptolysin O Ab positive, titer 200; patient does not recall strep-like symptoms prior to foot swelling and pain. - Ankle brachial index in ED normal. - MRI foot/ankle showed: - 1. Mild marrow edema within the distal phalanges of the toes with decreased T1 signal within the distal tuft of the first and second toe. No erosive changes identified. This is indeterminate but unlikely to represent osteomyelitis. A developing acroosteolysis or bone contusions would be in the differential diagnosis. No fracture or dislocation. Diffuse subcutaneous edema within the dorsum of the foot with mild enhancement. This could represent a mild cellulitis. - Bone scan showed mild increased activity involving the distal phalanx of the great toe of the right foot, corresponding to the area of marrow edema described on the recent MRI. - Orthopedic Surgery consulted and recommend no surgical intervention. - Discussed with patient's Patient Safety Officer: - No findings suggestive of RA, Lupus on lab work. - Findings similar to erythromelalgia, however pain has been fairly consistent which is atypical. Pain and swelling was initially in hands, now in feet. - Seronegative polymyalgia rheumatica (RS3PE) possible however patient unresponsive to steroid therapy so this diagnosis is less likely. - MRI foot not suggestive of arthritic process. Some bone marrow edema in foot; unclear correlation with symptoms. - Fluid in joint space unlikely to be drainable for testing due to trace amount. - Currently on oral prednisone taper - Neurology workup last admission as follows: - CSF studies, EMG/NVC unremarkable for any obvious polyneuropathy or myopathy on May 21. - There are no upper motor neuron signs, meningeal signs, or encephalopathy, and patient has brisk reflexes. - Tick-borne illness testing negative. - Will schedule patient for expeditious Neurology follow up for EMG and small fiber nerve biopsy, as patient was scheduled for Neurology follow up prior to readmission. - Small fiber nerve biopsies are performed in [facility] office. - Pain management consult placed given severe intractable pain: - Current pain control regimen: aspirin 325mg, daily, Cymbalta 30mg aqm, amitriptyline 50qhs, gabapentin 300mg am, 300mg, midday, 900mg qhs, Nucynta 50mg, prn q4h, dilaudid 0.5mg q12h, lidocaine, voltaren gel, cold water baths. - Consider lumbar sympathetic block if extensive evaluation is negative for clear cause. - continue current regimen Hypokalemia: - Replete as needed. Elevated total bilirubin: - Elevated total bili of 1.2, with repeat 1.4. - LFTs, ALk Phos normal. Direct bilirubin 0.2. No jaundice. FEN/GI: Regular Diet CODE STATUS: Full code DVT prophylaxis: Lovenox SQ Dispo: Med/Surg Admission and Anticipated Discharge Date Admission Date: June 26, 2020 Supervising Physician Co-Signing Physician Notes Resident Physician Supervision Note: I independently interviewed and examined the patient and verified the piña history and physical, reviewed labs and image studies, discussed the case with the resident Dr. Mast and agree with the findings and care plan. Subjective Patient reports improvement in burning sensation; erythema resolved. Was able to walk several steps yesterday. Pain remains at 7/10. Patient has fear she will be lost to follow up if she leaves without have her lumbar block Review of Systems Review of Systems: All systems reviewed & are unremarkable except as noted in HPI & below Physical Exam Constitutional: WD/WN, vitals as above cooperative Eyes: + anicteric sclerae ENMT: external ear and nose normal, oropharynx normal Neck: normal visual inspection Respiratory: normal respiratory effort, lungs clear to auscultation Cardiovascular: RRR, no murmur, no edema Heart Sounds: normal S1 and normal S2 Gastrointestinal (Abdomen): normal bowel sounds, soft, nontender, no hepatosplenomegaly Musculoskeletal: There is obvious swelling on in soft tissue of dorsum of bilateral feet, although no ankle joint effusions. No erythema present. Feet sensate to gross touch. Pain reported with palpation of midfoot (dorsal aspect) and MTP joints (particular 1st digit) on R foot. Skin: no rashes, warm and dry Psychiatric: A+Ox3, euthymic affect Results & Data Results & Data ([facility]) Vital Signs (Past 12 Hours) Vital Signs Temp Pulse Pulse Resp BP Pulse Ox 06/28/20 16:00 37 C 120 H 20 118/76 97 06/28/20 13:33 36.8 C 129/87 06/28/20 07:00 36.9 C 88 18 122/86 99 Resident Activity Tracking Resident Involvement: Resident Care Provided Care Provided: Adult Hospital Medicine
[2020-06-28] MEDS: LIDOCAINE 5% 1 PATCH TD SCH (17:37)
[2020-06-28] MEDS: PRENATAL VITAMIN 1 TAB PO SCH (20:55)
[2020-06-28] MEDS: AMITRIPTYLINE HCL 50 MG TAB PO SCH (20:56)
[2020-06-28] MEDS: HYDROmorphone INJ 0.5 MG/0.5 ML SYR IV PRN (23:22)
[2020-06-29] MEDS: DICLOFENAC SOD 1% GEL 100 GM TUBE EXT SCH ×3 (03:00→13:47)
[2020-06-29] MEDS: ACETAMINOPHEN 500 MG TAB PO SCH ×2 (05:54→13:47)
[2020-06-29] MEDS: HYDROmorphone INJ 0.5 MG/0.5 ML SYR IV PRN ×3 (05:54→19:05)
[2020-06-29] MEDS: ENOXAPARIN INJ 40 MG/0.4 ML SYR SQ SCH (08:37)
[2020-06-29] MEDS: ASPIRIN 325 MG ECTAB PO SCH (08:38)
[2020-06-29] MEDS: SENNA 8.6 MG TAB PO SCH (08:38)
[2020-06-29] MEDS: GABAPENTIN 300 MG CAP PO SCH (08:38)
[2020-06-29] MEDS: DULoxetine HCL 30 MG CAP PO SCH (08:38)
[2020-06-29] MEDS: predniSONE 10 MG TABLET PO SCH (08:38)
[2020-06-29] MEDS: TAPENTADOL HCL 50 MG TAB PO PRN (10:43)
--- NOTE | 2020-06-29 13:49 | Discharge Summary ---
Date of Service June 29, 2020 Admission HPI Per Admitting Provider Pt is a 29-year-old female with past medical history migraines and mild intermittent asthma who was admitted with bilateral feet swelling, redness and pain, worse on the right. Of note, pt was very lethargic while obtaining the history due to the pain medications she had received. She states that she has been to this hospital multiple times since April for pain, swelling and redness in her feet bilaterally. She did have a followup with rheumatology as advised at her last visit who she states ruled out RA and lupus, and ordered an MRI that she could not complete due to her pain. States the pain is on the soles of her feet as well and prevents her from ambulating without help. States she uses crutches to get around. ALso has some intermittent swelling in her hands as well. Denies any numbness and tingling in the lower extremities currently. Her pain was 10/10 on arrival today and decreased to 8/10 only after administration of Ativan. She states she has never smoked, uses alcohol socially, no recreational drug use. Lives at home with son and . 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 Admission Exam Per Admitting Provider General: Lethargic, laying in bed Skin: Redness noted on feet bilaterally with swelling Psych: couldnt be determined Neuro: No gross deficits, sensation intact grossly on lower extremities bilaterally HEENT: NC/AT Chest: Nontender to palpation. CV: RRR, Normal s1, s2. No murmurs appreciated Resp: Breath sounds clear bilaterally, no increased effort of breathing. No crackles/rhonchi/rales. Abdomen: Soft, nontender, nondistended. No guarding. Extremities: Redness, warmth and swelling noted on feet. Principal Diagnosis Intractable foot pain of unknown etiology Discharge Exam Constitutional WD/WN, vitals as above cooperative Eyes + anicteric sclerae ENMT external ear and nose normal, oropharynx normal Neck normal visual inspection Respiratory normal respiratory effort, lungs clear to auscultation Cardiovascular RRR, no murmur, no edema Heart Sounds: normal S1 and normal S2 Gastrointestinal (Abdomen) normal bowel sounds, soft, nontender, no hepatosplenomegaly Musculoskeletal There is obvious swelling on in soft tissue of dorsum of bilateral feet, although no ankle joint effusions. No erythema present. Feet sensate to gross touch. Pain reported with palpation of midfoot (dorsal aspect) and MTP joints (particular 1st digit) on R foot. ROM limited secondary to pain. Skin no rashes, warm and dry Psychiatric A+Ox3, euthymic affect Discharge Data Allergies Allergy/AdvReac Type Severity Reaction Status Date / Time No Known Allergies Allergy Verified 06/25/20 20:04 Consultations 06/25/20 21:36 ED Decision to Admit Stat 06/26/20 07:12 Consult Pain Management Routine 06/27/20 11:00 Consult Orthopedic Surgery Routine Ordered Studies 06/25/20 19:17 US ankle/brachial index ltd Stat 06/26/20 02:32 MR foot RT wo/w con Stat 06/26/20 03:31 MR ankle RT wo/w con Stat 06/27/20 07:25 MR lumbar spine wo/w con Routine Hospital Course (1) Edema of right foot: 29 yo F admitted with bilateral feet swelling, redness and intractable pain, worse on the right. Patient with some improvement over course of last 24 hours: able to bear weight, burning sensation and erythema resolved. Orthopedics evaluated patient and have no suspicion for osteomyelitis or surgical intervention at this time. Differential at this time includes complex regional pain syndrome, reflex sympathetic dystrophy and erythromelalgia. Pain not adequately controlled on regimen. Patient was ultimately accepted as a transfer to [facility] for further evaluation and management. Pain, Swelling and Redness in feet, bilateral R>L: - Ongoing pain, intermittent swelling and redness in her feet since April 2020 - patient has had extensive work up thus far, summarized below * Neuropathy Work up: Uric acid 3.2, CRP less than 0.29, vitamin B1 152, vitamin B6 16.2, vitamin B12 630, MMA 113, alpha-tocopherol 26.2, beta and G tocopherol less than 1. AST 14, ALT 27, alk phos 64, hemoglobin A1c 5.4, all other electrolytes wit hin normal limits. creatinine of 0.68. TSH 0.54. Arsenic level less than 3, lead level less than 1, mercury level less than 4 LP negative for xanthochromia, CSF WBC, lactate, albumin, IgG normal. CSF glucose high at 84. CSF West Nile IgM antibody negative - Myelin associated glycoprotein IGM, EIA <1:1600 titer - EMG/NCV testing at [facility] on 05/21/20 of bilateral upper extremities and left lower extremities normal * Rheumatology work up - weakly positive 1:160 on 06/02, 1:80 on 06/03. previous to this ANGLE negative. - ANGLE pattern showing nuclear speckled pattern as well as nuclear homogenous pattern. - Antibodies for SSA, SSB, Martinez, TRIMMER MACHINE, SCL70, anti-dsDNA, chromatin, anticentromere were all negative. - Anticardiolipin IgG IgA and IgM were also all negative. Complement C3 was 133 and complement C4 was 41. Bartonella, Lyme, CMV, enterovirus, EBV, hepatitis B surface antigen, hepatitis C, HSV 1 and 2, VZV antibodies all not detected - Peripheral smear without findings suggestive of hematologic process, and leukocytosis likely reactive. - Antistreptolysin O Ab positive, titer 200; patient does not recall strep- like symptoms prior to foot swelling and pain. - patient currently on oral prednisone taper (30mg) - Seronegative polymyalgia rheumatica (RS3PE) thought to be unlikely given lack of response to steroids - Econsult with [facility] Rheum suggested small fiber nerve biopsy (not yet done) * Orthopedics work up - Ankle brachial index of R LE normal on 06/25/20 - MRI Right foot/ankle 06/26/20 showed: 1. Mild marrow edema within the distal phalanges of the toes with decreased T1 signal within the distal tuft of the first and second toe. No erosive changes identified. This is indeterminate but unlikely to represent osteomyelitis. A developing acroosteolysis or bone contusions would be in the differential diagnosis. No fracture or dislocation. Diffuse subcutaneous edema within the dorsum of the foot with mild enhancement. This could represent a mild cellulitis. - Bone scan 06/26/20 showed mild increased activity involving the distal phalanx of the great toe of the right foot, corresponding to the area of marrow edema described on the recent MRI. - Lumbar spine MRI 06/27/20 with the following impression: 1. Minimal degenerative disc disease and facet arthrosis at L5-S1. Slight disc bulge. Patent central canal and neural foramen. Otherwise, unremarkable MRI of the lumbar spine. 2. Markedly distended bladder.3. Fat-containing umbilical hernia. - Orthopedic Surgery consulted and recommend no surgical intervention. No concern for osteomyelitis * Pain management consult placed given severe intractable pain: - Current pain control regimen: aspirin 325mg, daily, Cymbalta 30mg aqm, amitriptyline 50qhs, gabapentin 300mg am, 300mg, midday, 900mg qhs, Nucynta 50mg, prn q4h, dilaudid 0.5mg q12h, lidocaine, voltaren gel, cold water baths. - Despite the above regimen, patient without adequate pain control - lumbar sympathetic block by pain management was considered prior to patient's transfer to [facility] Leukocytosis - WBC 17 on admission, trended down to 13 by the time of discharge - thought to be secondary to steroid taper - no suspicion for infectious process at this time Hypokalemia: - resolved - Replete as needed. Elevated total bilirubin: - Elevated total bili of 1.2, with repeat 1.4 - Direct bilirubin 0.2. - LFTs, ALk Phos normal. - No jaundice. Total Time Total Time Spent Total Time Spent (In Minutes): see attending attestation Discharge Plan Discharge Items Patient Disposition: Home - Self-Care Reason For Visit: FOOT PAIN AND SWELLING Discharge Diagnosis: intractable foot pain Activity: Per Instructions section Non-emergency contact: Primary Care Provider and Pain Management Call non-emergency contact if: you have any medication questions Follow-up/Referrals: Avelino Nolan [Primary Care Provider] - Diet: Regular Addtl Attending Provider Instructions: You were admitted to the hospital for worsening foot pain. You had an MRI of the foot which showed some swelling of the soft tissue surrounding your right foot. You had a bone scan which showed some bone marrow edema. Your back MRI did not show any narrowing of the spine that wound explain your pain. You were seen by Orthopedic service to take a look at your scans, and they recommended no surgical intervention. Ultimately, you were transferred to [facility] for further evaluation. After you get discharged from [place], please follow up with your primary care provider in [facility]. Pending Studies at Discharge: No Stand-Alone Forms: My [employer], Smoking Cessation Medications and DC Order Prescriptions: New prednisone 10 mg Tablet 30 mg PO DAILY 5 Days Qty: 15 RF: 0 amitriptyline 50 mg Tablet 50 mg PO HS 1 Days Qty: 1 RF: 0 acetaminophen 500 mg Tablet 1,000 mg PO Q8H 1 Days Qty: 6 RF: 0 aspirin [Ecotrin] 325 mg Tablet,Delayed Release (Dr/Ec) 325 mg PO QAM 1 Days Qty: 1 RF: 0 gabapentin 300 mg Capsule 900 mg PO QPM 30 Days Qty: 90 RF: 0 gabapentin 300 mg Capsule 300 mg PO BID 30 Days Qty: 60 RF: 0 duloxetine 30 mg Capsule,Delayed Release(Dr/Ec) 30 mg PO QAM 1 Days Qty: 1 RF: 0 diclofenac sodium [Voltaren] 1 % Gel 4 g EXT Q6H 1 Days RF: 0 Nucynta 50 mg Tablet 50 mg PO Q4H PRN (Reason: pain) 1 Days RF: 0 Continued 400 mcg Tablet,Chewable 1 tab PO HS RF: 0 Discontinued gabapentin 600 mg Tablet 900 mg PO QPM 30 Days Qty: 45 RF: 0 gabapentin 300 mg capsule 300 mg PO QAM Qty: 30 RF: 0 trazodone 150 mg tablet 150 mg PO HS PRN (Reason: Sleep) RF: 0 methylprednisolone 16 mg tablet 32 mg PO DAILY RF: 0 acetaminophen [Tylenol Extra Strength] 500 mg Tablet 1,000 mg PO DIRECTED PRN (Reason: Pain) RF: 0 ibuprofen 200 mg Tablet 400 mg PO DIRECTED PRN (Reason: Pain) RF: 0 No Action [place] 3-6-9 1,200 mg Capsule 1 cap PO HS RF: 0 Discharge Orders: Discharge Order (Routine); Ordered 06/29/20 Ordered By: Judy Mast Admission Data Admit Date/Time: 06/26/20 00:27 Attending Provider: Nancy Gonzalez Admit Provider: Mona Sanders Primary Care Provider: Avelino Nolan Other Providers: Ella Charles ; Ash Gillespie ; Mona Sanders ; Chuck Andino Supervising Physician Co-Signing Physician Notes Resident Physician Supervision Note: I independently interviewed and examined the patient and verified the piña history and physical, reviewed labs and image studies, discussed the case with the resident Dr. Mast and agree with the findings and care plan. Resident Activity Tracking Resident Involvement: Resident Care Provided Care Provided: Adult Hospital Medicine
[2020-06-29] MEDS: LIDOCAINE 5% 1 PATCH TD SCH (18:30)
[2020-06-29 19:24] VITALS: BP 119/83; PULSE 117; TEMP 98.2; O2SAT 98
== END 2020-06-29 20:13 | disposition home or self-care (01) ==
LOC: ED 18:20 → 2N 18:20 → SUATTDRO 06-26 00:27 → 2N 06-26 02:07
DX: M79.671 Pain in right foot; J45.20 Mild intermittent asthma, uncomplicated; R60.0 Localized edema; Z79.899 Other long term (current) drug therapy